=== PATIENT | male | born 1965 | race Caucasian/White ===

== ENCOUNTER 2016-04-27 23:55 | Emergency (ER) | payer MEDICAID, MEDICARE, OTHER ==
[2016-04-27 23:55] VITALS: BMI 25.1
--- NOTE | 2016-04-28 01:41 | C.PDOC ---
History Of Present Illness pt with cough, congestion over the last 3 days. Pt is a m-w-sat HD. 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 not actively bleeding. Speaking in complete sentences Time Seen by Provider: 04/28/16 01:41 Chief Complaint (Nursing): Cough, Cold, Congestion History Per: Patient History/Exam Limitations: no limitations Onset/Duration Of Symptoms: Days Current Symptoms Are (Timing): Still Present Location Of Pain: Other (nose) Sick Contacts (Context): None Associated Symptoms: Cough Ear Symptoms: Bilateral: None Severity: Moderate Pain Scale Rating Of: 4 Recent travel outside of the [place]: No Additional History Per: Patient Past Medical History Reviewed: Historical Data, Nursing Documentation, Vital Signs Vital Signs: Last Vital Signs Temp 98.4 F 04/28/16 00:44 Pulse 88 04/28/16 00:44 Resp 16 04/28/16 00:44 BP 135/82 04/28/16 00:44 Pulse Ox 98 04/28/16 03:34 - Medical History PMH: HTN, End Stage Renal Disease (DIALYSIS 3 X WEEK), Chronic Kidney Disease - [facility] Procedures EXCISION OF SIGMOID COLON, ENDO (02/19/15) HEMODIALYSIS (06/22/12) PERFORMANCE OF URINARY FILTRATION, MULTIPLE (02/19/15) Family History: States: No Known Family Hx - Social History Hx Tobacco Use: No Hx Alcohol Use: No Hx Substance Use: No - Immunization History Hx Tetanus Toxoid Vaccination: Yes Hx Influenza Vaccination: Yes Hx Pneumococcal Vaccination: Yes Review Of Systems Constitutional: Negative for: Fever, Chills ENT: Positive for: Nose Congestion (r nare epistaxis, not actively bleeding). Negative for: Ear Pain Cardiovascular: Negative for: Chest Pain Respiratory: Positive for: Cough. Negative for: Shortness of Breath Gastrointestinal: Negative for: Nausea, Vomiting Musculoskeletal: Negative for: Back Pain Skin: Negative for: Rash, Lesions, Jaundice, Bruising Neurological: Negative for: Weakness Psych: Negative for: Anxiety Physical Exam - Physical Exam Appears: Non-toxic, No Acute Distress Skin: Warm, Dry Ear(s): Bilateral: Normal Nose: Epistaxis (not actively bleeding ;left nare), No Septal Hematoma, Other Chest: Symmetrical Cardiovascular: Rhythm Regular Respiratory: No Rales, Rhonchi (few) Gastrointestinal/Abdominal: Soft, No Tenderness, No Distention Back: Normal Inspection Extremity: Other (lefet dilalysis shunt with good thrill and bruit) Extremity: Bilateral: Atraumatic Neurological/Psych: Oriented x3, Normal Speech, Normal Cognition Gait: Steady ED Course And Treatment - Laboratory Results Result Diagrams: 04/28/16 03:15 03 02:20 ECG: Interpreted By Me, Viewed By Me ECG Rhythm: Sinus Rhythm (71), Nonspecific Changes (lad, ) O2 Sat by Pulse Oximetry: 98 Pulse Ox Interpretation: Normal - Radiology CXR: Interpreted by Me, Viewed By Me CXR Interpretation: Yes: Other (? rll infiltrate). No: Fracture, Pnemothorax Progress Note: blood work, nebs, cxr Disposition Counseled Patient/Family Regarding: Studies Performed, Diagnosis, Need For Followup, Rx Given - Disposition Disposition: HOME/ ROUTINE Disposition Time: 01:41 Condition: FAIR Additional Instructions: Por favor, siga con isaac kirstin. Regresar si los sntomas se repiten Prescriptions: Albuterol HFA [Ventolin HFA 90 mcg/actuation (8 g)] 2 puff IH [id number] #1 puff Promethazine/Codeine [Codeine/Promethazine 10 MG/5 Ml-6.25 MG/5 Ml] 5 ml PO Q4H #150 udc Azithromycin [Zithromax Tri-Viktor] 500 mg PO DAILY #3 tablet Instructions: Upper Respiratory Infection (ED), Nosebleed (ED) Print Language: DIVEHI - Clinical Impression Clinical Impression: Bronchitis, Epistaxis
[2016-04-28] MEDS ORDERED: Promethazine/Cod 6.25mg-10mg/5ml Syr UD PO STA (01:46)
[2016-04-28] MEDS ORDERED: Promethazine/Cod 6.25mg-10mg/5ml Syr UD ONE (02:22)
[2016-04-28 02:34] LABS: VENOUS BLOOD GAS BASE EXCESS 12.4 mmol/L (0.0-2.0); VENOUS BLOOD GAS PCO2 48 mmHg (40-60)
[2016-04-28 02:35] LABS: ALB/GLOB RATIO 0.8 (1.0-2.1); TOTAL PROTEIN 7.8 g/dL (6.3-8.3)
[2016-04-28 02:36] LABS: CALCIUM 9.4 mg/dl (8.6-10.4); POTASSIUM 5.2 mmol/L (3.6-5.2)
[2016-04-28 03:18] LABS: BASO # 0.1 K/uL (0.0-0.2); BASO % 1.2 % (0.0-2.0); EOS # 0.1 K/uL (0.0-0.7); EOS % 1.4 % (0.0-4.0); HEMATOCRIT 34.9 % (35.0-51.0); LYMPH # 0.6 K/uL (1.0-4.3); LYMPH % 13.5 % (20.0-40.0); MEAN CORPUSCULAR HEMOGLOBIN 31.5 pg (27.0-31.0); MEAN CORPUSCULAR HGB CONC 33.2 g/dL (33.0-37.0); MEAN PLATELET VOLUME 8.9 fL (7.2-11.7); MONO # 0.6 K/uL (0.0-0.8); MONO % 15.1 % (0.0-10.0); NRBC % 0.1 % (0.0-2.0); RED CELL DISTRIBUTION WIDTH 14.2 % (11.5-14.5); WHITE BLOOD COUNT 4.3 K/uL (4.8-10.8)
[2016-04-28] MEDS ORDERED: cefTRIAXone IV 1 gm in Dextros 50 ML IVPB ONE ×2 (03:31→03:39)
[2016-04-28 03:58] VITALS: BP 141/84; PULSE 63; RESP 18; TEMP 98.9; O2SAT 95
--- NOTE | 2016-04-28 11:11 | RAD ---
PROCEDURE: CHEST RADIOGRAPH, 1 VIEW HISTORY: SOB COMPARISON: Comparison chest 06/22/2012 FINDINGS: LUNGS: Vague bilateral micronodular interstitial densities are present mid to lower lung harmon ; findings could represent inhaled interstitial pneumonia. Clinical correlation recommended. PLEURA: No pneumothorax or pleural fluid seen. CARDIOVASCULAR: Heart appears borderline enlarged with slight left ventricular configuration. OSSEOUS STRUCTURES: No significant abnormalities. VISUALIZED UPPER ABDOMEN: Normal. OTHER FINDINGS: Incidental note made of tiny metallic vascular clips within the medial soft tissues left upper extremity. IMPRESSION: Bilateral micronodular appearing interstitial infiltrates opacities mid to lower lung harmon could represent interstitial pneumonia
--- NOTE | 2016-04-29 22:19 | CARD ---
APPROVED REPORT EKG Measurement Heart [id number] VT [id number] <Conclusion> Normal sinus rhythm Left axis deviation Possible Lateral infarct, age undetermined Abnormal ECG
== END 2016-04-28 04:00 | disposition home or self-care (01) ==
LOC: C.ER 23:55
DX: J40 Bronchitis, not specified as acute or chronic (principal); R04.0 Epistaxis

== ENCOUNTER 2016-09-08 15:43 | Emergency (ER) | payer OTHER ==
[2016-09-08 15:43] VITALS: BMI 25.1
[2016-09-08 15:54] VITALS: RESP 20; TEMP 98.2; O2SAT 100
[2016-09-08] MEDS ORDERED: Enoxaparin 40 mg Syringe SC STA (17:24)
--- NOTE | 2016-09-08 17:31 | C.PDOC ---
History Of Present Illness 51-YEAR-OLD MALE, PRESENTS TO THE EMERGENCY DEPARTMENT WITH COMPLAINTS OF LEFT LEG SWELLING X 3 DAYS. PATIENT IS S/P L KNEECAP REPAIR 3 DAYS AGO INITIALLY W SWELLING NEAR SURGERY SITE NOW RESOLVED. NOW WITH SWELLING TO LEFT LEG WITH BRUISING IN LEG AND ANKLE. NO ANKLE SWELL. NO CP, SOB, TRAUMA VIA TRANS RUSTY GÓMEZ EXAM NAD EXT LLE HEALING POST OP SCAR L KNEE. GEN TEND EDEMA NONPITTING LLE; NO FOCAL CORD, TEND SKIN LLE +PETECHIA ANT; +POOLING HEMATOMA MED MALL. NO ERYTHEMA MDM ADVISED SWELLING MOST LIKELY DUE TO GRAVITY POOLING FROM POST OP HEMATOMA. POSSIBILITY OF DVT. ADVISED WILL GIVE LOVENOX BUT MAY MAKE BLEEDING WORSE. VOICES UNDERSTANDING OF RISKS BENEFITS. Time Seen by Provider: 09/08/16 17:01 Chief Complaint (Nursing): Lower Extremity Problem/Injury History Per: Patient, Sheriffs (RUSTY GÓMEZ) History/Exam Limitations: no limitations Current Symptoms Are (Timing): Still Present Severity: Moderate Past Medical History Reviewed: Historical Data, Nursing Documentation, Vital Signs Vital Signs: Last Vital Signs Temp 98.2 F 09/08/16 15:51 Pulse 67 09/08/16 15:51 Resp 20 09/08/16 15:51 BP 148/81 09/08/16 15:51 Pulse Ox 100 09/08/16 17:36 - Medical History PMH: HTN, End Stage Renal Disease (DIALYSIS 3 X WEEK), Chronic Kidney Disease - [facility] Procedures EXCISION OF SIGMOID COLON, ENDO (02/19/15) HEMODIALYSIS (06/22/12) PERFORMANCE OF URINARY FILTRATION, MULTIPLE (02/19/15) Family History: States: No Known Family Hx - Social History Hx Tobacco Use: No Hx Alcohol Use: No Hx Substance Use: No - Immunization History Hx Tetanus Toxoid Vaccination: Yes Hx Influenza Vaccination: Yes Hx Pneumococcal Vaccination: Yes Review Of Systems Except As Marked, All Systems Reviewed And Found Negative. Constitutional: Negative for: Fever Cardiovascular: Negative for: Chest Pain Respiratory: Negative for: Shortness of Breath Gastrointestinal: Negative for: Nausea, Vomiting Musculoskeletal: Positive for: Leg Pain (SWELLING) Physical Exam - Physical Exam Appears: Non-toxic, No Acute Distress Skin: Warm, Dry, Other ( LLE +PETECHIA ANT; +POOLING HEMATOMA MED MALL. NO ERYTHEMA) Head: Atraumatic, Normacephalic Eye(s): bilateral: Normal Inspection, PERRL, EOMI Nose: Normal Oral Mucosa: Moist Lips: Normal Appearing Neck: Normal ROM Cardiovascular: Rhythm Regular, No Murmur Respiratory: Normal Breath Sounds, No Accessory Muscle Use Extremity: Other ( LLE HEALING POST OP SCAR L KNEE. GEN TEND EDEMA NONPITTING LLE; NO FOCAL CORD, TEND) Neurological/Psych: Oriented x3, Normal Speech ED Course And Treatment O2 Sat by Pulse Oximetry: 100 Medical Decision Making Medical Decision Making: ADVISED SWELLING MOST LIKELY DUE TO GRAVITY POOLING FROM POST OP HEMATOMA. POSSIBILITY OF DVT. ADVISED WILL GIVE LOVENOX BUT MAY MAKE BLEEDING WORSE. VOICES UNDERSTANDING OF RISKS BENEFITS. Disposition Counseled Patient/Family Regarding: Diagnosis, Need For Followup - Disposition Referrals: [facility] EMERGENCY DEPARTMENT [Provider Group] Disposition: HOME/ ROUTINE Disposition Time: 17:34 Condition: IMPROVED Additional Instructions: DEVUELVA MAANA ENTRE 12-6 PM PARA EL ESTUDIO DE DOPPLER. [place]. TYLENOL JOHN SE DIRIGE PARA EL DOLOR. Forms: [facility] (Finnish), General Discharge Instructions - Clinical Impression Clinical Impression: Leg swelling - Scribe Statement The provider has reviewed the documentation as recorded by the Scribe (Carter Grossman) All medical record entries made by the Scribe were at my direction and personally dictated by me. I have reviewed the chart and agree that the record accurately reflects my personal performance of the history, physical exam, medical decision making, and the department course for this patient. I have also personally directed, reviewed, and agree with the discharge instructions and disposition.
[2016-09-08] MEDS ORDERED: Enoxaparin 80 mg Syringe ONE (18:52)
[2016-09-08 18:55] VITALS: BP 172/94; PULSE 60
== END 2016-09-08 19:17 | disposition home or self-care (01) ==
LOC: C.ER 15:43
DX: M79.89 Other specified soft tissue disorders (principal)
CPT/HCPCS: 96372; 99283; J1650

== ENCOUNTER 2016-09-09 10:03 | Emergency (ER) | payer OTHER ==
[2016-09-09 10:03] VITALS: BMI 25.1
[2016-09-09 10:13] VITALS: RESP 18
[2016-09-09 11:08] LABS: BASO % 0.6 % (0.0-2.0); EOS # 0.2 K/uL (0.0-0.7); EOS % 3.2 % (0.0-4.0); HEMATOCRIT 36.6 % (35.0-51.0); LYMPH # 1.2 K/uL (1.0-4.3); LYMPH % 22.3 % (20.0-40.0); MEAN CELL VOLUME 95.5 fL (80.0-94.0); MEAN CORPUSCULAR HEMOGLOBIN 31.6 pg (27.0-31.0); MEAN CORPUSCULAR HGB CONC 33.1 g/dL (33.0-37.0); MEAN PLATELET VOLUME 9.7 fL (7.2-11.7); MONO # 0.6 K/uL (0.0-0.8); MONO % 11.2 % (0.0-10.0); RED CELL DISTRIBUTION WIDTH 15.1 % (11.5-14.5); WHITE BLOOD COUNT 5.3 K/uL (4.8-10.8)
[2016-09-09 11:16] LABS: POTASSIUM 4.6 mmol/L (3.6-5.2)
[2016-09-09 11:18] LABS: BILIRUBIN,TOTAL 0.9 mg/dL (0.2-1.3)
[2016-09-09 11:19] LABS: CALCIUM 9.2 mg/dl (8.6-10.4); TOTAL PROTEIN 7.7 g/dL (6.3-8.3)
--- NOTE | 2016-09-09 12:23 | C.PDOC ---
History Of Present Illness 51-year-old male, PMHx includes ESRD (on HD), Hypertension, presents to the emergency department with complaints of left lower leg pain, swelling, bruising for the past 1 week. Patient was seen in ER yesterday, DVT suspected and patient given SC Lovenox; =instructed to return for venous doppler today. States he has a Hx of knee surgery eight years ag, but denies recent surgeries. He also denies falls/injuries, chest pain, SOB, fever. Patient states he had a renal transplant >10 years ago, and developed a "blood clot," but does not know where. Time Seen by Provider: 09/09/16 10:16 Chief Complaint (Nursing): Abnormal Skin Integrity History Per: Patient History/Exam Limitations: no limitations Onset/Duration Of Symptoms: Days Current Symptoms Are (Timing): Still Present Severity: Moderate Reports Recently: Seen In ED Past Medical History Reviewed: Historical Data, Nursing Documentation, Vital Signs Vital Signs: Last Vital Signs Temp 98.3 F 09/09/16 13:40 Pulse 69 09/09/16 13:40 Resp 18 09/09/16 13:40 BP 216/115 H 09/09/16 13:40 Pulse Ox 100 09/09/16 13:40 - Medical History PMH: HTN, End Stage Renal Disease (DIALYSIS 3 X WEEK), Chronic Kidney Disease - [facility] Procedures EXCISION OF SIGMOID COLON, ENDO (02/19/15) HEMODIALYSIS (06/22/12) PERFORMANCE OF URINARY FILTRATION, MULTIPLE (02/19/15) Family History: States: No Known Family Hx - Social History Hx Tobacco Use: No Hx Alcohol Use: No Hx Substance Use: No - Immunization History Hx Tetanus Toxoid Vaccination: Yes Hx Influenza Vaccination: Yes Hx Pneumococcal Vaccination: Yes Review Of Systems Except As Marked, All Systems Reviewed And Found Negative. Constitutional: Negative for: Fever, Chills Cardiovascular: Negative for: Chest Pain, Palpitations Respiratory: Negative for: Shortness of Breath Gastrointestinal: Negative for: Nausea, Vomiting Musculoskeletal: Positive for: Leg Pain Skin: Negative for: Rash Neurological: Negative for: Weakness, Numbness Physical Exam - Physical Exam Appears: Well, Non-toxic, In Acute Distress (in mild pain ) Skin: Warm, Dry, No Rash Head: Atraumatic, Normacephalic Eye(s): bilateral: Normal Inspection, PERRL, EOMI Oral Mucosa: Moist Cardiovascular: Rhythm Regular, Friction Rub, Murmur Respiratory: Normal Breath Sounds, No Accessory Muscle Use, No Rales, No Rhonchi , No Wheezing Gastrointestinal/Abdominal: Normal Exam, Bowel Sounds, Soft, No Tenderness Extremity: Capillary Refill (< 2 secs all digits ), Swelling, Other (AV fistula in left arm w/ palpable thrill. Left lower leg with mild swelling, tenderness & mild erythema. (+)scattered petichiae and echymosis at medial malleolus. ) Extremity: Bilateral: Normal ROM Pulses: Left Dorsalis Pedis: Normal, Right Dorsalis Pedis: Normal Neurological/Psych: Oriented x3, Normal Sensation Gait: Steady ED Course And Treatment - Laboratory Results Result Diagrams: 09/09/16 11:03 09/09/16 11:03 O2 Sat by Pulse Oximetry: 99 (RA) Pulse Ox Interpretation: Normal - CT Scan/US VENOUS DOPPLER Other Rad Studies (CT/US): Read By Radiologist Progress Note: Bloodwork, US doppler, Xray of left knee/ankle ordered and reviewed. PO tylenol given for pain. Venous doppler (-) for DVT, but shows small hematoma in lower leg. Crutches and instruction given. Reevaluation Time: 13:30 Reassessment Condition: Improved - Physician Consult Information Physician Contacted: Pasha Keene Outcome Of Conversation: Discussed patient with Dr. Keene, he is aware of small leg hematoma with normal platelets, coags - states will hold heparin x 1 week during dialysis. Disposition Counseled Patient/Family Regarding: Studies Performed, Diagnosis, Need For Followup, Rx Given - Disposition Referrals: Pasha Keene MD [Staff Provider] - [facility] [Outside] Drew Kerr MD [Staff Provider] - [facility] [Outside] Disposition: HOME/ ROUTINE Disposition Time: 13:30 Condition: STABLE Additional Instructions: SEGUIMIENTO CON ORTOPEDIA DENTRO DE 1 SEMANA NO HEPAR[place] CON DIALSIS X 1 SEMANA USE EL MEDICAMENTO DEL DOLOR JOHN SEA NECESARIO VUELVA A LA HABITACIN DE EMERGENCIA SI LA MAX SE ENCUENTRA MS DOLOROSA, EDITH , GOLPEADA, ETC Prescriptions: Hydrocodone/Acetaminophen [Hydrocodon-Acetaminophen 5-325] 1 each PO Q6 PRN #12 tablet PRN Reason: Pain, Moderate (4-7) Instructions: Hematoma (ED) Forms: [facility] (Congolese) Print Language: CITIZEN OF [place] - POA Present On Arrival: None - Clinical Impression Clinical Impression: Leg hematoma - Scribe Statement The provider has reviewed the documentation as recorded by the Scribe (Carter Grossman) All medical record entries made by the Scribe were at my direction and personally dictated by me. I have reviewed the chart and agree that the record accurately reflects my personal performance of the history, physical exam, medical decision making, and the department course for this patient. I have also personally directed, reviewed, and agree with the discharge instructions and disposition.
[2016-09-09 13:41] VITALS: BP 216/115; PULSE 69; TEMP 98.3
--- NOTE | 2016-09-09 13:44 | RAD ---
PROCEDURE: Left Ankle Radiographs. HISTORY: LEFT ANKLE PAIN, SWELLING COMPARISON: None FINDINGS: BONES: There is no acute displaced fracture or bone destruction. Bone alignment is normal. There is a large plantar calcaneal spur and prominent dorsal calcaneal enthesophyte. JOINTS: Normal. No osteoarthritis. Ankle mortise maintained. Talar dome intact SOFT TISSUES: Normal. OTHER FINDINGS: Atherosclerotic vascular calcifications are present. IMPRESSION: No acute fracture or dislocation.
--- NOTE | 2016-09-09 13:46 | RAD ---
PROCEDURE: Left Knee Radiographs. HISTORY: Pain. COMPARISON: 12/21/2011 FINDINGS: BONES: Normal. No fracture. JOINTS: There is mild tricompartmental degenerative osteoarthrosis with reduced joint spaces and marginal osteophytes, worse in the medial compartment. There are prominent superior and inferior patellar enthesophytes. JOINT EFFUSION: There is a small suprapatellar joint effusion. OTHER FINDINGS: Atherosclerotic vascular calcifications are present. IMPRESSION: Mild tricompartmental degenerative osteoarthrosis, worse in the medial compartment. Small suprapatellar joint effusion.
--- NOTE | 2016-09-10 14:43 | VASCLAB ---
PROCEDURE: Left Lower Extremity Venous Duplex Exam. HISTORY: left leg pain, swelling, r/o DVT PRIORS: None. TECHNIQUE: Left common femoral, femoral, popliteal and posterior tibial, peroneal and great saphenous veins were evaluated. Flow was assessed with color Doppler, compressibility, assessment of phasic flow and augmentation response. Report prepared by Carrillo Garnica RVT FINDINGS: LEFT: 1. Common Femoral Vein: 1.1. Compressibility - Fully compressible: Thrombus - None : Flow - Phasic: Augmentation -Normal: Reflux - . 2. Femoral Vein: 2.1. Compressibility - Fully compressible: Thrombus - None: Flow - Phasic: Augmentation -Normal: Reflux - . 3. Popliteal Vein: 3.1. Compressibility - Fully compressible: Thrombus - None: Flow - Phasic: Augmentation -Normal: Reflux - . 4. Posterior Tibial Vein: 4.1. Compressibility - Fully compressible: Thrombus - None: Flow - : Augmentation -: Reflux - . 5. Peroneal Vein: 5.1. Compressibility - Fully compressible: Thrombus - None: Flow - : Augmentation -: Reflux - . 6. Great Saphenous Vein: 6.1. Compressibility - Fully compressible: Thrombus - None: Flow - : Augmentation - : Reflux - . OTHER FINDINGS: There was hyperechoic structure like solid mass noted in the proximal left calf area, which measured approximately 2.7x1.0 cm, possible a hematoma. IMPRESSION: No evidence of deep or superficial vein thrombosis of the left lower extremity with excellent venous flow. Normal venous flow noted in the right common femoral vein.
[2016-09-12 11:38] VITALS: O2SAT 99
== END 2016-09-09 13:45 | disposition home or self-care (01) ==
LOC: C.ER 10:03
DX: S80.12XA Contusion of left lower leg, initial encounter (principal); X58.XXXA Exposure to other specified factors, initial encounter; N18.6 End stage renal disease; Z99.2 Dependence on renal dialysis

== ENCOUNTER 2017-03-31 08:54 | Inpatient (IN) | payer MEDICARE, OTHER ==
[2017-03-31 08:55] VITALS: BMI 25.1
[2017-03-31 11:53] LABS: BASO % 0.6 % (0.0-2.0); EOS # 0.3 K/uL (0.0-0.7); EOS % 3.1 % (0.0-4.0); LYMPH # 1.1 K/uL (1.0-4.3); MEAN CELL VOLUME 95.2 fL (80.0-94.0); MEAN CORPUSCULAR HEMOGLOBIN 32.6 pg (27.0-31.0); MEAN CORPUSCULAR HGB CONC 34.3 g/dL (33.0-37.0); MEAN PLATELET VOLUME 10.1 fL (7.2-11.7); MONO % 11.1 % (0.0-10.0); NEUT # 6.2 K/uL (1.8-7.0); NEUT % 72.2 % (50.0-75.0); RBC 4.5 Mil/uL (4.40-5.90); RED CELL DISTRIBUTION WIDTH 14.2 % (11.5-14.5)
[2017-03-31 11:55] LABS: HEMOGLOBIN 14.7 g/dL (12.0-18.0); WHITE BLOOD COUNT 8.6 K/uL (4.8-10.8)
[2017-03-31 12:03] LABS: INR 1.1; PROTHROMBIN TIME 12.1 SECONDS (9.7-12.2)
--- NOTE | 2017-03-31 12:05 | C.PDOC ---
History Of Present Illness 52yo male with history of end stage renal failure, on dialysis with last session 2 days ago, presents to ED for evaluation stating that his port does not work. Patient has an access port on his left arm and was told during his last dialysis session that it does not work. He denies any fever, chills, chest pain, shortness of breath or abdominal pain. He has no other medical complaints. Time Seen by Provider: 03/31/17 09:49 Chief Complaint (Nursing): Medical Clearance History Per: Patient History/Exam Limitations: no limitations Onset/Duration Of Symptoms: Days (2) Current Symptoms Are (Timing): Still Present Past Medical History Reviewed: Historical Data, Nursing Documentation, Vital Signs Vital Signs: Last Vital Signs Temp 98.4 F 03/31/17 09:02 Pulse 73 03/31/17 17:10 Resp 18 03/31/17 17:10 BP 142/83 03/31/17 17:10 Pulse Ox 98 03/31/17 17:10 - Medical History PMH: HTN, End Stage Renal Disease (DIALYSIS 3 X WEEK, MWF), Chronic Kidney Disease - [facility] Procedures EXCISION OF SIGMOID COLON, ENDO (02/19/15) HEMODIALYSIS (06/22/12) PERFORMANCE OF URINARY FILTRATION, MULTIPLE (02/19/15) Family History: States: No Known Family Hx - Social History Hx Tobacco Use: No Hx Alcohol Use: No Hx Substance Use: No - Immunization History Hx Tetanus Toxoid Vaccination: Yes Hx Influenza Vaccination: Yes Hx Pneumococcal Vaccination: Yes Review Of Systems Except As Marked, All Systems Reviewed And Found Negative. Constitutional: Positive for: Other (patient informed his dialysis port is not working). Negative for: Fever, Chills Cardiovascular: Negative for: Chest Pain Respiratory: Negative for: Shortness of Breath Gastrointestinal: Negative for: Abdominal Pain Physical Exam - Physical Exam Appears: Non-toxic, No Acute Distress Skin: Warm, Dry Head: Normacephalic Eye(s): bilateral: Normal Inspection Neck: Normal ROM, Supple Chest: Symmetrical Cardiovascular: Rhythm Regular Respiratory: Normal Breath Sounds Gastrointestinal/Abdominal: Normal Exam, Soft, No Tenderness Back: Normal Inspection Extremity: Other (access port noted to left arm, no active bleeding. ) Neurological/Psych: Oriented x3, Normal Speech ED Course And Treatment - Laboratory Results Result Diagrams: 03/31/17 11:40 03/31/17 11:40 O2 Sat by Pulse Oximetry: 99 (RA) Pulse Ox Interpretation: Normal Progress Note: Casew as d/w who requested patient to be admitted to 's service and vascular surgery consult to be called Dr.T. Arroyo. Spoeke with who accepted patient to his service. Medical Decision Making Medical Decision Making: Plan: -- CMP -- CBC -- PT/PTT Disposition - Disposition Disposition: HOSPITALIZED Disposition Time: 14:37 Condition: STABLE - Clinical Impression Clinical Impression: Dialysis AV fistula malfunction - PA / TOWEL SORTER / Resident Statement MD/DO has reviewed & agrees with the documentation as recorded. - Scribe Statement The provider has reviewed the documentation as recorded by the Scribe (Diana Joy) Provider Scribe Attestation: All medical record entries made by the Scribe were at my direction and personally dictated by me. I have reviewed the chart and agree that the record accurately reflects my personal performance of the history, physical exam, medical decision making, and the department course for this patient. I have also personally directed, reviewed, and agree with the discharge instructions and disposition. Decision To Admit - Pt Status Changed To: Hospital Disposition Of: Inpatient - Admit Certification Admit to Inpatient:: After my assessment, the patient will require hospitalization for at least two midnights. This is because of the severity of symptoms shown, intensity of services needed, and/or the medical risk in this patient being treated as an outpatient. - InPatient: Physician Admission Certification: I certify that this patient requires 2 or more midnights of care for the following reason:: pt will need surgical procedure - . Bed Request Type: Regular Admitting Physician: Georgia Rodrigues Patient Diagnosis: Dialysis AV fistula malfunction
[2017-03-31 12:28] LABS: ALBUMIN 4.1 g/dL (3.5-5.0); CALCIUM 11.3 mg/dl (8.6-10.4)
--- NOTE | 2017-03-31 19:00 | CP.PCM.CON ---
<Taina Rojas - Last Filed: 03/31/17 19:37> History of Present Illness - History of Present Illness History of Present Illness: Vascular Surgery Dr. Medeiros 52 y/o M w/ PMHx of ESRD on HD MWF presents to the ED c/o malfunctioning AVF. At dialysis on 03/23/17 and again on Saturday03/29/17, pt was told his access was no longer working appropriately and he should come to the ED for evaluation. Pt reports dark black blood w/drawn from proximal arm at dialysis. Distally, at the antecubital fosa, dialysis progresses normally. Pt reports pain in the hand and posterior arm which started concurrently w/ the AVF malfunction. Pt denies numbness or hand weakness. Pt admits to chills. Pt denies CP, SOB, palpitations , fever, N/V. PMHx: ESRD, HTN, pulmonary edema, pericardial effusion Meds: reviewed in chart NKDA PSHx: renal transplant, knee surgery, R lung cystectomy, dialysis access, pericardial window, colonoscopy SHx: denies tobacco use, social EtOH use, denies drug use FHx: noncontributory Review of Systems - Review of Systems All systems: reviewed and no additional remarkable complaints except (see HPI) Past Patient History - Infectious Disease Hx of Infectious Diseases: None - Past Medical History & Family History Past Medical History?: Yes - Past Social History Smoking Status: Never Smoked - CARDIAC Hx Hypertension: Yes - PULMONARY Hx Respiratory Disorders: Yes Hx Pulmonary Edema: Yes - NEUROLOGICAL Hx Neurological Disorder: No - HEENT Hx HEENT Problems: No - RENAL Hx Chronic Kidney Disease: Yes - ENDOCRINE/METABOLIC Hx Endocrine Disorders: No - HEMATOLOGICAL/ONCOLOGICAL Hx Blood Disorders: No - INTEGUMENTARY Hx Dermatological Problems: No - MUSCULOSKELETAL/RHEUMATOLOGICAL Hx Musculoskeletal Disorders: No Hx Falls: No - GASTROINTESTINAL Hx Gastrointestinal Disorders: No - GENITOURINARY/GYNECOLOGICAL Hx Genitourinary Disorders: No - PSYCHIATRIC Hx Substance Use: No - SURGICAL HISTORY Hx Surgeries: Yes Hx Vascular Access Device: Yes Other/Comment: lung surgery. heart surgery- too much fluid around heart - ANESTHESIA Hx Anesthesia: Yes Hx Anesthesia Reactions: No Hx Malignant Hyperthermia: No Meds Allergies/Adverse Reactions: Allergies Allergy/AdvReac Type Severity Reaction Status Date / Time No Known Allergies Allergy Verified 03/31/17 09:01 Physical Exam - Constitutional Appears: Non-toxic, No Acute Distress - Head Exam Head Exam: NORMAL INSPECTION - Eye Exam Eye Exam: Normal appearance - ENT Exam ENT Exam: Mucous Membranes Moist - Respiratory Exam Respiratory Exam: NORMAL BREATHING PATTERN. absent: Accessory Muscle Use, Respiratory Distress - Cardiovascular Exam Cardiovascular Exam: REGULAR RHYTHM. 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-aneurysms present proximal to AVF w/ palpable pulses thrill decreases w/ compression of pseudo-aneurysms R radial pulse palpable - Neurological Exam Neurological exam: Alert, Oriented x3 - Psychiatric Exam Psychiatric exam: Normal Affect, Normal Mood - Skin Skin Exam: Dry, Intact, Normal Color, Warm Results - Vital Signs Recent Vital Signs: Last Vital Signs Temp 98.4 F 03/31/17 09:02 Pulse 73 03/31/17 17:10 Resp 18 03/31/17 17:10 BP 142/83 03/31/17 17:10 Pulse Ox 99 03/31/17 17:16 - Labs Result Diagrams: 03/31/17 11:40 03/31/17 11:40 Labs: Laboratory Results - last 24 hr 03/31/17 03/31/17 03/31/17 11:40 11:40 11:40 WBC 8.6 D RBC 4.50 Hgb 14.7 D Hct 42.8 MCV 95.2 H MCH 32.6 H MCHC 34.3 RDW 14.2 Plt Count 157 MPV 10.1 Neut % (Auto) 72.2 Lymph % (Auto) 13.0 L Kershaw % (Auto) 11.1 H Eos % (Auto) 3.1 Baso % (Auto) 0.6 Neut # (Auto) 6.2 Lymph # (Auto) 1.1 Kershaw # (Auto) 1.0 H Eos # (Auto) 0.3 Baso # (Auto) 0.0 PT 12.1 INR 1.1 APTT 37 H Sodium 135 Potassium 4.9 Chloride 87 L Carbon Dioxide 31 H Anion Gap 22 H BUN 71 H Creatinine 10.5 H* Est GFR ( Amer) 6 Est GFR (Non-Af Amer) 5 Random Glucose 78 Calcium 11.3 H Total Bilirubin 0.9 AST 19 ALT 21 D Alkaline Phosphatase 195 H Total Protein 7.9 Albumin 4.1 Globulin 3.9 Albumin/Globulin Ratio 1.0 Assessment & Plan - Assessment and Plan (Free Text) Assessment: 52 y/o M w/ ESRD on HD MWF now w/ L AVF and 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 Waldemar Rojas DO PGY2 <Dany Medeiros - Last Filed: 04/03/17 18:20> Meds - Medications Medications: Current Medications Cinacalcet (Sensipar) 120 mg PO QPM [facility] Last Admin: 04/03/17 17:56 Dose: 120 mg Clonidine HCl (Catapres) 0.2 mg PO BID [facility] Last Admin: 04/03/17 17:56 Dose: Not Given Famotidine (Pepcid) 20 mg PO DAILY [facility] Last Admin: 04/03/17 18:01 Dose: 20 mg Heparin Sodium (Porcine) (Heparin) 2,000 units IVP [facility] Stop: 04/08/17 09:01 Last Admin: 04/03/17 09:16 Dose: 2,000 units Ondansetron HCl (Zofran Inj) 4 mg IVP Q6H PRN PRN Reason: Nausea/Vomiting Oxycodone/Acetaminophen (Percocet 5/325 Mg Tab) 1 tab PO Q6H PRN PRN Reason: pain Stop: 04/05/17 17:24 Last Admin: 04/02/17 17:58 Dose: 1 tab Sevelamer Carbonate (Renvela) 800 mg PO TIDCC [facility] Last Admin: 04/03/17 17:56 Dose: 800 mg Vitamin B Complex/Vit C/Folic Acid (Nephro-Memo) 1 tab PO DAILY [facility] Last Admin: 04/03/17 09:54 Dose: Not Given Results - Vital Signs Recent Vital Signs: Last Vital Signs Temp 98.6 F 04/03/17 15:15 Pulse 79 04/03/17 15:15 Resp 20 04/03/17 15:15 BP 97/61 L 04/03/17 15:15 Pulse Ox 98 04/03/17 15:15 - Labs Result Diagrams: 03/31/17 11:40 03/31/17 11:40 Assessment & Plan - Assessment and Plan (Free Text) Assessment: Patient was seen and examined 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
[2017-04-01] MEDS ORDERED: LANTHANUM 1000 MG PO SCH (07:30)
--- NOTE | 2017-04-01 07:45 | HP ---
HISTORY OF PRESENT ILLNESS: This is a 52-year-old male with history of end-stage renal disease, on hemodialysis, last dialysis was 2 days prior to this admission. The patient was sent to emergency room for nonfunctioning left upper extremity AV shunt. The patient denies to have any trauma. No fever. No chills. No chest pain. No shortness of breath, and other review of systems negative. ALLERGIES: NO KNOWN ALLERGIES. MEDICATIONS: As per MAR. PAST MEDICAL HISTORY: End stage renal disease, on hemodialysis, hypertension. SOCIAL HISTORY: No history of smoking, EtOH, or substance abuse. FAMILY HISTORY: Noncontributory. PHYSICAL EXAMINATION: GENERAL: The patient is in bed, comfortable, not in any cardiopulmonary distress at the time of this examination. VITAL SIGNS: Blood pressure 142/83, temperature 98.4, respiratory rate 18, and pulse 73. HEENT: Pupils equal and reactive to light. Normal-appearing mucosa of the conjunctivae, oropharynx, and nasal membrane mucosa. NECK: Supple. No JVD. No carotid bruit. No lymph node. No thyromegaly. CHEST AND LUNGS: Bilateral symmetrical expansion. Good air exchange. No rales, no rhonchi. CARDIOVASCULAR SYSTEM: PMI not localized. S1, S2. No additional sounds. ABDOMEN: Normoactive bowel sounds. No tenderness. No organomegaly. No masses. EXTREMITIES: No cyanosis, no clubbing, no edema. ASSOCIATE MANAGER AFFILIATE MARKETING: Alert, awake, oriented x2. No neurological deficit could be appreciated. ASSESSMENT: 1. Nonfunctioning left arteriovenous shunt. 2. End-stage renal disease, on hemodialysis. 3. Hypertension. PLAN: Vascular surgery consult, nephrology consult. We will resume the patient's home medications. Georgia Rodrigues MD
--- NOTE | 2017-04-01 09:48 | CP.PCM.PN ---
Subjective - Date & Time of Evaluation Date of Evaluation: 04/01/17 Time of Evaluation: 06:50 - Subjective Subjective: Vascular Surgery- Dr. Medeiros Patient seen and examined at bedside this AM. no acute events overnight. Nursing notes reviewed. Pt has a palpbale thrill LUE fistula w/ multiple pseudoaneurysm. Denies F/C CP/SOB N/V/D Of note: patient is refusing temporary dialysis catheter placement Objective - Vital Signs/Intake and Output Vital Signs (last 24 hours): Temp Pulse Resp BP Pulse Ox 98.7 F 72 20 139/80 97 04/01/17 07:58 04/01/17 07:58 04/01/17 07:58 04/01/17 07:58 04/01/17 07:58 - Medications Medications: Current Medications Cinacalcet (Sensipar) 120 mg PO QPM [facility] Clonidine HCl (Catapres) 0.2 mg PO BID [facility] Last Admin: 03/31/17 21:18 Dose: 0.2 mg Famotidine (Pepcid) 40 mg PO DAILY [facility] Home Med (Lanthanum [Fosrenol]) 1,000 mg PO TIDAC [facility] Vitamin B Complex/Vit C/Folic Acid (Nephro-Memo) 1 tab PO DAILY [facility] - Labs Labs: 03/31/17 11:40 03/31/17 11:40 PT 12.1 SECONDS (9.7-12.2) 03/31/17 11:40 INR 1.1 03/31/17 11:40 APTT 37 SECONDS (21-34) H 03/31/17 11:40 - Constitutional Appears: Non-toxic, No Acute Distress - Eye Exam Eye Exam: EOMI. absent: Scleral icterus - ENT Exam ENT Exam: Mucous Membranes Moist - Respiratory Exam Respiratory Exam: NORMAL BREATHING PATTERN. absent: Accessory Muscle Use, Respiratory Distress - Cardiovascular Exam Cardiovascular Exam: +S1, +S2. absent: Bradycardia, Tachycardia - GI/Abdominal Exam GI & Abdominal Exam: Soft. absent: Firm, Guarding, Rigid, Tenderness - Extremities Exam Additional comments: palpable radial pulse LUE palpable thrill inferior aspect of fistula - Neurological Exam Neurological Exam: Alert, Awake Assessment and Plan - Assessment and Plan (Free Text) Assessment: 52M w/ malfunctioning LUE AV Fistula pt currently refusing temporary dialysis catheter placement Plan: final read pending for UE US will attempt dialysis today via fistula Plan for fistulogram tomorrow NPO @ [place] pain control anti-emetic PRN further recs per Dr. Medeiros surgical attending Gagan Thomas PGY1
[2017-04-01] MEDS: Multivitamin Vitamin B Complex (Nephro-Vite) Tab PO SCH (11:00)
--- NOTE | 2017-04-02 07:31 | PN ---
DATE: 04/01/2017 SUBJECTIVE: The patient is seen today, 04/01/2017. He is seen during hemodialysis. OBJECTIVE: VITAL SIGNS: Blood pressure 115/78, temperature 97.3, respiratory rate 18, and pulse 65. HEENT: Pupils equal, reactive to light. Normal-appearing mucosa of the conjunctivae, oropharynx and nasal membrane mucosa. NECK: Supple. No JVD. No carotid bruit. No lymph node. No thyromegaly. CHEST/LUNGS: Bilateral symmetrical expansion. Good air exchange. No rales, no rhonchi. CARDIOVASCULAR SYSTEM: PMI not localized. S1, S2. No additional sounds. ABDOMEN: Normoactive bowel sounds. No tenderness. No organomegaly. No masses. EXTREMITIES: No cyanosis, no clubbing, no edema. SHEET METAL PATTERN CUTTER: Alert, awake, oriented x2. No neurological deficit could be appreciated. ASSESSMENT: Malfunctioning arteriovenous shunt, end-stage renal disease, on hemodialysis, hypertension. PLAN: Follow Vascular Surgery. RECOMMENDATIONS: Continue current medications and management as per Nephrology. Georgia Rodrigues MD
[2017-04-02] MEDS: Multivitamin Vitamin B Complex (Nephro-Vite) Tab PO SCH (09:18)
[2017-04-02] MEDS ORDERED: Iodixanol 320 MG/ML 100 ML BOTTLE IV ONE (10:42)
[2017-04-02] MEDS ORDERED: Lidocaine 2% Inj (20ml) ONE (10:43)
[2017-04-02] MEDS: Oxycodone/Acetaminophen 5/325 mg Tab PO PRN (17:58)
--- NOTE | 2017-04-02 23:18 | PN ---
DATE: 04/02/2017. SUBJECTIVE: He was complaining of vomiting twice and upper back pain. The patient had workup done today by Vascular Surgery for the left upper arm fistula. PHYSICAL EXAMINATION: VITAL SIGNS: Blood pressure 122/79, temperature 98.4, respiratory rate 20 and pulse 60. HEENT: Pupils equal, reactive to light. Normal-appearing mucosa of the conjunctivae, oropharynx and nasal membrane mucosa. NECK: Supple. No JVD. No carotid bruit. No lymph node. No thyromegaly. CHEST AND LUNGS: Bilateral symmetrical expansion. Good air exchange. No rales, no rhonchi. CARDIOVASCULAR SYSTEM: PMI not localized. S1, S2. No additional sounds. ABDOMEN: Normoactive bowel sounds. No tenderness. No organomegaly. No masses. EXTREMITIES: No cyanosis, no clubbing, no edema. POLICE SHIFT COMMANDER: Alert, awake, oriented x2. No neurological deficit could be appreciated. ASSESSMENT: 1. Malfunctioning arteriovenous shunt of the left upper arm. 2. End-stage renal disease on hemodialysis. 3. Hypertension. PLAN: We will give Protonix as well as Reglan/Zofran and we will give Percocet for upper back pain. Followup Vascular business risk consultant recommendations, hemodialysis as per kitchen designer. Georgia Rodrigues MD
--- NOTE | 2017-04-03 09:42 | VASCLAB ---
PROCEDURE: Arterial-Venous shunt Evaluation. HISTORY: malfunctioning AVF; pseudo-aneurysm PRIORS: None. TECHNIQUE: Ultrasound evaluation of arterial-venous shunt with color doppler and velocity measurements. Report prepared by PRISCILLA Ozuna, RVT FINDINGS: Type of arterial-venous shunt: Vein Afferent Artery: Brachial Efferent Vein: Basilic 1. Afferent Artery: Velocity 173 cm/s Image Characteristics: 2. Inflow Anastamosis: Velocity 305 cm/s Image Characteristics: 3. Mid shunt flow: Velocity cm/s Image Characteristics: 4. Outflow Anastamosis: Velocity cm/s Image Characteristics: 5. Efferent Vein: Velocity cm/s Image Characteristics: OTHER FINDINGS: RUSTY Jane notified about the findings. IMPRESSION: LEFT BRACHIAL-BASILIC VEIN FISTULA Poorly attached acute thrombosis noted in the left basilic vein with multiple aneurysmal sites. The anastamosis velocity is 305cm/s, distal upper arm basilic vein velocity 69 cm/s, mid 86 cm/s, proximal 382 cm/s, and axillary vein 276 cm/s.
[2017-04-03] MEDS: Multivitamin Vitamin B Complex (Nephro-Vite) Tab PO SCH (09:54)
--- NOTE | 2017-04-03 13:49 | CP.PCM.PN ---
Subjective - Date & Time of Evaluation Date of Evaluation: 04/03/17 Time of Evaluation: 13:00 - Subjective Subjective: SEEN ON RENAL F/U PT AGREES ABOUT TUNNELLED CATH AND FISTULA REPAIR Objective - Vital Signs/Intake and Output Vital Signs (last 24 hours): Temp Pulse Resp BP Pulse Ox 97.7 F 64 17 102/67 99 04/03/17 12:05 04/03/17 12:05 04/03/17 12:05 04/03/17 12:05 04/03/17 12:05 Intake and Output: 04/03/17 04/03/17 06:59 18:59 Intake Total 400 120 Balance 400 120 - Medications Medications: Current Medications Cinacalcet (Sensipar) 120 mg PO QPM [facility] Last Admin: 04/02/17 18:00 Dose: 120 mg Clonidine HCl (Catapres) 0.2 mg PO BID [facility] Last Admin: 04/03/17 09:54 Dose: Not Given Famotidine (Pepcid) 20 mg PO DAILY [facility] Last Admin: 04/03/17 09:54 Dose: Not Given Heparin Sodium (Porcine) (Heparin) 2,000 units IVP MWF [facility] Stop: 04/08/17 09:01 Last Admin: 04/03/17 09:16 Dose: 2,000 units Ondansetron HCl (Zofran Inj) 4 mg IVP Q6H PRN PRN Reason: Nausea/Vomiting Oxycodone/Acetaminophen (Percocet 5/325 Mg Tab) 1 tab PO Q6H PRN PRN Reason: pain Stop: 04/05/17 17:24 Last Admin: 04/02/17 17:58 Dose: 1 tab Sevelamer Carbonate (Renvela) 800 mg PO TIDCC [facility] Last Admin: 04/03/17 12:46 Dose: 800 mg Vitamin B Complex/Vit C/Folic Acid (Nephro-Memo) 1 tab PO DAILY [facility] Last Admin: 04/03/17 09:54 Dose: Not Given - Labs Labs: 03/31/17 11:40 03/31/17 11:40 PT 12.1 SECONDS (9.7-12.2) 03/31/17 11:40 INR 1.1 03/31/17 11:40 APTT 37 SECONDS (21-34) H 03/31/17 11:40 Assessment and Plan - Assessment and Plan (Free Text) Assessment: C/ O CURRENT CARE
--- NOTE | 2017-04-03 14:53 | CP.PCM.PN ---
Subjective - Date & Time of Evaluation Date of Evaluation: 04/03/17 Time of Evaluation: 10:45 - Subjective Subjective: Vascular Surgery- Dr. Medeiros Patient seen and examined while receiving dialysis today. No new complaints. no acute events overnight. Patient denies F/C CP/SOB N/V/D Objective - Vital Signs/Intake and Output Vital Signs (last 24 hours): Temp Pulse Resp BP Pulse Ox 97.7 F 64 17 102/67 99 04/03/17 12:05 04/03/17 12:05 04/03/17 12:05 04/03/17 12:05 04/03/17 12:05 Intake and Output: 04/03/17 04/03/17 06:59 18:59 Intake Total 400 360 Balance 400 360 - Medications Medications: Current Medications Cinacalcet (Sensipar) 120 mg PO QPM [facility] Last Admin: 04/02/17 18:00 Dose: 120 mg Clonidine HCl (Catapres) 0.2 mg PO BID [facility] Last Admin: 04/03/17 09:54 Dose: Not Given Famotidine (Pepcid) 20 mg PO DAILY [facility] Last Admin: 04/03/17 09:54 Dose: Not Given Heparin Sodium (Porcine) (Heparin) 2,000 units IVP MWF [facility] Stop: 04/08/17 09:01 Last Admin: 04/03/17 09:16 Dose: 2,000 units Ondansetron HCl (Zofran Inj) 4 mg IVP Q6H PRN PRN Reason: Nausea/Vomiting Oxycodone/Acetaminophen (Percocet 5/325 Mg Tab) 1 tab PO Q6H PRN PRN Reason: pain Stop: 04/05/17 17:24 Last Admin: 04/02/17 17:58 Dose: 1 tab Sevelamer Carbonate (Renvela) 800 mg PO TIDCC [facility] Last Admin: 04/03/17 12:46 Dose: 800 mg Vitamin B Complex/Vit C/Folic Acid (Nephro-Memo) 1 tab PO DAILY [facility] Last Admin: 04/03/17 09:54 Dose: Not Given - Labs Labs: 03/31/17 11:40 03/31/17 11:40 PT 12.1 SECONDS (9.7-12.2) 03/31/17 11:40 INR 1.1 03/31/17 11:40 APTT 37 SECONDS (21-34) H 03/31/17 11:40 - Constitutional Appears: Non-toxic, No Acute Distress - Eye Exam Eye Exam: EOMI. absent: Scleral icterus - ENT Exam ENT Exam: Mucous Membranes Moist - Respiratory Exam Respiratory Exam: NORMAL BREATHING PATTERN. absent: Accessory Muscle Use, Respiratory Distress - Cardiovascular Exam Cardiovascular Exam: +S1, +S2. absent: Bradycardia, Tachycardia - GI/Abdominal Exam GI & Abdominal Exam: Soft. absent: Firm, Guarding, Rigid, Tenderness - Extremities Exam Additional comments: LUE palpable thrill multiple pseudoanyerusms - Neurological Exam Neurological Exam: Alert, Awake, Oriented x3 - Skin Skin Exam: Intact, Warm Assessment and Plan - Assessment and Plan (Free Text) Assessment: 52M w/ malfunctioning LUE AV Fistula s/p fistulagram Plan: Plan for OR tomorrow for revision of fistula and Permacath placement NPO @ [place] pain control anti-emetic PRN further recs per Dr. Medeiros surgical attending Gagan Thomas PGY1
[2017-04-03 21:38] LABS: BLOOD UREA NITROGEN 17 mg/dL (9-20); CALCIUM 8.8 mg/dl (8.6-10.4); GFR AFRICAN-AMERICAN > 60; GFR NON-AFRICAN AMERICAN > 60
[2017-04-03] MEDS: Oxycodone/Acetaminophen 5/325 mg Tab PO PRN (22:45)
[2017-04-04] MEDS ORDERED: Sodium Chloride 0.9% 500 ML IV ONE (00:38)
--- NOTE | 2017-04-04 01:48 | PN ---
DAILY PROGRESS NOTE DATE: 04/03/2017 SUBJECTIVE: The patient is seen today, 04/03/2017. He is status post hemodialysis today. PHYSICAL EXAMINATION: VITAL SIGNS: Blood pressure is 97/61, temperature 98.6, respiratory rate 20, and pulse 79. HEENT: Pupils equal, reactive to light. Normal-appearing mucosa of the conjunctivae, oropharynx, and nasal membrane mucosa. NECK: Supple. No JVD. No carotid bruit. No lymph node. No thyromegaly. CHEST AND LUNGS: Bilateral symmetrical expansion. Good air exchange. No rales, no rhonchi. CARDIOVASCULAR SYSTEM: PMI not localized. S1 and S2. No additional sounds. ABDOMEN: Normoactive bowel sounds. No tenderness. No organomegaly. No masses. EXTREMITIES: No cyanosis, no clubbing, no edema. WREATH AND GARLAND MAKER: Alert, awake, oriented x3. No neurological deficit could be appreciated. ASSESSMENT: Clotted and malfunctioning left upper arm arteriovenous fistula. PLAN: As per surgical garment inspector, vascular surgery plan to place a PermCath and to revise the left upper arm fistula. [facility] MD Ravi
[2017-04-04 07:08] LABS: BASO # 0.1 K/uL (0.0-0.2); BASO % 0.8 % (0.0-2.0); EOS # 0.3 K/uL (0.0-0.7); HEMOGLOBIN 13.8 g/dL (12.0-18.0); LYMPH # 1.1 K/uL (1.0-4.3); MEAN CORPUSCULAR HEMOGLOBIN 32.5 pg (27.0-31.0); MEAN CORPUSCULAR HGB CONC 34.2 g/dL (33.0-37.0); MEAN PLATELET VOLUME 9.4 fL (7.2-11.7); MONO # 0.9 K/uL (0.0-0.8); MONO % 10.9 % (0.0-10.0); NEUT # 6.3 K/uL (1.8-7.0); NEUT % 72.3 % (50.0-75.0); RBC 4.24 Mil/uL (4.40-5.90); RED CELL DISTRIBUTION WIDTH 14.3 % (11.5-14.5); WHITE BLOOD COUNT 8.7 K/uL (4.8-10.8)
[2017-04-04] MEDS ORDERED: Sodium Chloride 0.9% 1,000 ML IV ONE ×2 (07:45→13:11)
[2017-04-04] MEDS ORDERED: HEPARIN-NS 5,000 UNITS/500 ML 10,000 UNIT/1,000 ML BAG IV ONE (07:50)
[2017-04-04] MEDS ORDERED: ceFAZolin IV 2 gm in Dextrose 2 GM/50 ML BAG IVPB ONE (07:50)
[2017-04-04] MEDS ORDERED: Propofol 10 mg/ml Inj (20 ML) ONE (07:51)
[2017-04-04] MEDS ORDERED: Phenylephrine 10 mg/ml Inj ONE (07:51)
[2017-04-04 08:31] LABS: ALB/GLOB RATIO 0.9 (1.0-2.1); ALBUMIN 3.7 g/dL (3.5-5.0)
[2017-04-04] MEDS ORDERED: Sodium Chloride 0.9% 250 ML IV ONE ×2 (09:00→11:00)
[2017-04-04] MEDS: Multivitamin Vitamin B Complex (Nephro-Vite) Tab PO SCH (09:39)
--- NOTE | 2017-04-04 10:12 | RAD ---
PROCEDURE: HISTORY: As above COMPARISON: None TECHNIQUE: Total fluoroscopic time utilized during the procedure: 65.6 seconds ; 4.05 mGy cm 2 FINDINGS: Submitted images from the current procedure: 2 Please refer to the physician's notes performing the procedure. IMPRESSION: Less than 1 hour fluoroscopic time utilized during performance of the procedure
[2017-04-04] MEDS ORDERED: HYDROmorphone 0.5 mg/0.5 ml ISec IVP PRN (11:28)
--- NOTE | 2017-04-04 12:44 | PCM.SURG1 ---
Surgeon's Initial Post Op Note - Surgeon's Notes Surgeon: Dr. Medeiros Intelligence Manager: Dr. White Pre-Operative Diagnosis: End-stage Renal disease with aneurysms of AVF of left upper extremity Operative Findings: See op report Post-Operative Diagnosis: End-stage Renal disease with aneurysms and thrombosis of AVF of left upper extremity Operation Performed: Right IJV permacath placement, left upper extremity excision and ligation of AVF and aneurysms Specimen/Specimens Removed: AVF of left upper extremity, plaques and clots of aneurysm Estimated Blood Loss: EBL {In ML}: 300 Blood Products Given: N/A Drains Used: Patrikc Post-Op Condition: Good Date of Surgery/Procedure: 04/04/17 Time of Surgery/Procedure: 12:45
--- NOTE | 2017-04-04 13:17 | RAD ---
HISTORY: Come to PACU, and do permacath COMPARISON: Chest x-ray performed 04/28/16 TECHNIQUE: Chest, one view. FINDINGS: Right-sided dialysis catheter with distal tips appearing in the expected locations of the right atrium and deep right atrium/ IVC. LUNGS: Mild to moderate pulmonary venous congestion. [id number]-right apical pleural thickening. Please note that chest x-ray has limited sensitivity for the detection of pulmonary masses. PLEURA: No significant pleural effusion identified. No definite pneumothorax . CARDIOVASCULAR: Cardiomegaly. Atherosclerotic calcifications. OSSEOUS STRUCTURES: No acute osseous abnormality identified. VISUALIZED UPPER ABDOMEN: Unremarkable. OTHER FINDINGS: None. IMPRESSION: Right-sided dialysis catheter with distal tips appearing in the expected locations of the right atrium and deep right atrium/ IVC. Correlate clinically. Mild to moderate pulmonary venous congestion. Left greater than right apical pleural thickening. Cardiomegaly. Atherosclerotic calcifications. Line placement discussed with RUSTY Jane on 04/04/17 at 1:13 p.m.
[2017-04-04] MEDS: Oxycodone/Acetaminophen 5/325 mg Tab PO PRN ×2 (16:00→23:09)
[2017-04-04] MEDS ORDERED: Ergocalciferol 50,000 Intl Units Cap PO SCH ×2 (18:15→21:00)
--- NOTE | 2017-04-04 18:19 | CP.PCM.PN ---
Subjective - Date & Time of Evaluation Date of Evaluation: 04/04/17 Time of Evaluation: 16:00 - Subjective Subjective: SEEN ON RENAL F/U HAD HD YESTERDAY .. TOLERATED WELL S/P R TUNNELLED CATH FOR AVF REPAIR BY DR HOLLEY Objective - Vital Signs/Intake and Output Vital Signs (last 24 hours): Temp Pulse Resp BP Pulse Ox 97.4 F L 69 20 133/83 99 04/04/17 15:26 04/04/17 15:26 04/04/17 15:26 04/04/17 15:26 04/04/17 15:26 Intake and Output: 04/04/17 04/04/17 06:59 18:59 Intake Total 400 210 Output Total 10 Balance 400 200 - Medications Medications: Current Medications Cinacalcet (Sensipar) 120 mg PO QPM [facility] Last Admin: 04/04/17 18:11 Dose: 120 mg Clonidine HCl (Catapres) 0.1 mg PO BID [facility] Ergocalciferol (Drisdol 50,000 Intl Units Cap) 1 cap PO Q7D [facility] Famotidine (Pepcid) 20 mg PO DAILY [facility] Last Admin: 04/04/17 18:12 Dose: 20 mg Heparin Sodium (Porcine) (Heparin) 2,000 units IVP MWF [facility] Stop: 04/08/17 09:01 Last Admin: 04/03/17 09:16 Dose: 2,000 units Ondansetron HCl (Zofran Inj) 4 mg IVP Q6H PRN PRN Reason: Nausea/Vomiting Oxycodone/Acetaminophen (Percocet 5/325 Mg Tab) 1 tab PO Q6H PRN PRN Reason: pain Stop: 04/05/17 17:24 Last Admin: 04/04/17 16:00 Dose: 1 tab Sevelamer Carbonate (Renvela) 800 mg PO TIDCC [facility] Last Admin: 04/04/17 18:11 Dose: 800 mg Vitamin B Complex/Vit C/Folic Acid (Nephro-Memo) 1 tab PO DAILY [facility] Last Admin: 04/04/17 09:39 Dose: Not Given - Labs Labs: 04/04/17 06:56 04/04/17 06:56 PT 12.1 SECONDS (9.7-12.2) 03/31/17 11:40 INR 1.1 03/31/17 11:40 APTT 37 SECONDS (21-34) H 03/31/17 11:40 Assessment and Plan - Assessment and Plan (Free Text) Assessment: ESRD ON HD M W .. TO BE C/O ANEMIA OF CKD .. H/H STABLE MAL FUNCTIONING OF AVF MMP P : HD M W ADD VIT D CHANGE CLONIDIN DOSE FOR LOW BP
--- NOTE | 2017-04-05 06:53 | OP ---
PROCEDURE DATE: 04/02/2017 A 52-year-old male patient. PREOPERATIVE DIAGNOSES: End-stage renal disease, malfunctioned arteriovenous fistula. POSTOPERATIVE DIAGNOSES: End-stage renal disease, malfunctioned arteriovenous fistula. PROCEDURES: 1. Fistulogram. 2. Angioplasty of the dialysis access using 5 x 40, then 7 x 60, then 9 x 60 mm balloon. SURGEON: Dany Medeiros M.D. ANESTHESIA: Local anesthesia 1%. COMPLICATIONS: No complications. INDICATIONS: Mr. Garcia is a 52-year-old male patient. He has had multiple medical problems including end-stage renal disease. The patient on hemodialysis via left brachiocephalic AV fistula. He has been having multiple aneurysmal dilatation of the fistula and there was a strong pulsation there and the aneurysm is filled with clots, so the Dialysis Team had a very difficulty time dialyzing him. They brought him for fistulogram and possible angioplasty. The risks and benefits were explained to him and he agreed to proceed. DESCRIPTION OF PROCEDURE: The patient came to the cardiac cath, he was laid in supine position. He was prepped and draped in the usual sterile fashion. A 1% lidocaine was used to infiltrate the skin and the proximal parts of the fistula. needle used to access the fistula, wire inserted through it, and micropuncture sheath was placed over the wire. Fistulogram was done which showed multiple aneurysmal dilatation filled with clots and severe stenosis at the distal portion of the fistula. A 6000 units of heparin was given and we started to treat the stenosis using a 6-Dominican short sheath was inserted again over a wire. A Glidewire 0.035 was used to negotiate the stenosis and pass up to the vena cava. Over the wire, we used 5 x 40 mm balloon and we angioplastied the area and during angioplasty we injected contrast and we were able to see the blood flow through the artery and the blood flow to the ostial sites . The proximal port is really calcified, was patent, and the clots moved and stuck at the stenotic area, so I used AngioJet to declot the aneurysmal part to prevent flow up to the lung and I used 2 mg to dissolve it and we used AngioJet for declotting of the fistula. After that, they went up to 7 x 60 mm balloon and the 9 x 60 mm balloon. There was a very good response and we can feel the thrill in the fistula nicely, but still the fistula had these aneurysms. As I mentioned AngioJet was used to declot the fistula and used the small size proximally. I discussed with the patient that the fistula can be used now, but this aneurysmal dilatation have to be removed, otherwise, it will compromise the skin over it and will bleed and they agreed for the plan that to bring the patient to the operating room to excise this aneurysm and to insert the catheter for temporary dialysis for a month until they heal after the revise fistula and excise the aneurysm. No complications. The patient tolerated the procedure well, transferred to recovery room and back to the floor. No complication during the procedure. Dany Medeiros MD cc: Pasha Keene MD, Sameh MD MTDJake
[2017-04-05 07:58] LABS: WHITE BLOOD COUNT 7.6 K/uL (4.8-10.8)
[2017-04-05 08:04] LABS: MEAN CELL VOLUME 95.1 fL (80.0-94.0); MEAN CORPUSCULAR HEMOGLOBIN 32.2 pg (27.0-31.0); MEAN CORPUSCULAR HGB CONC 33.9 g/dL (33.0-37.0); MEAN PLATELET VOLUME 9.4 fL (7.2-11.7); RBC 3.41 Mil/uL (4.40-5.90); RED CELL DISTRIBUTION WIDTH 13.9 % (11.5-14.5)
[2017-04-05 08:11] LABS: CALCIUM 8.1 mg/dl (8.6-10.4)
[2017-04-05] MEDS: Multivitamin Vitamin B Complex (Nephro-Vite) Tab PO SCH (09:14)
[2017-04-05] MEDS: Oxycodone/Acetaminophen 5/325 mg Tab PO PRN ×2 (09:56→18:32)
[2017-04-05] MEDS ORDERED: Lidocaine 1%/Epinephrine 1:100000 30 ml vial IJ ONE ×2 (15:00→15:30)
--- NOTE | 2017-04-05 15:15 | CP.PCM.PN ---
Subjective - Date & Time of Evaluation Date of Evaluation: 04/05/17 Time of Evaluation: 06:45 - Subjective Subjective: Vascular surgery progress note for Dr. Maria R White, PGY-1 Pt S & E at bedside this AM. Pt reports LUE pain overnight. Explained operation to patient, need for further surgery for AVF creation. Objective - Vital Signs/Intake and Output Vital Signs (last 24 hours): Temp Pulse Resp BP Pulse Ox 97.8 F 65 20 128/80 100 04/05/17 08:00 04/05/17 08:00 04/05/17 08:00 04/05/17 00:00 04/05/17 08:00 Intake and Output: 04/05/17 04/05/17 06:59 18:59 Intake Total 350 120 Output Total 15 Balance 335 120 - Medications Medications: Current Medications Cinacalcet (Sensipar) 120 mg PO QPM [facility] Last Admin: 04/04/17 18:11 Dose: 120 mg Clonidine HCl (Catapres) 0.1 mg PO BID [facility] Last Admin: 04/05/17 09:14 Dose: Not Given Ergocalciferol (Drisdol 50,000 Intl Units Cap) 1 cap PO Q7D [facility] Last Admin: 04/04/17 21:15 Dose: 1 cap Famotidine (Pepcid) 20 mg PO DAILY [facility] Last Admin: 04/05/17 09:14 Dose: Not Given Heparin Sodium (Porcine) (Heparin) 2,000 units IVP MWF [facility] Stop: 04/08/17 09:01 Last Admin: 04/03/17 09:16 Dose: 2,000 units Lidocaine/Epinephrine (Lidocaine 1%/Epinephrine 1:139425 30 Ml) 30 ml IJ ONCE ONE Stop: 04/05/17 15:01 Ondansetron HCl (Zofran Inj) 4 mg IVP Q6H PRN PRN Reason: Nausea/Vomiting Oxycodone/Acetaminophen (Percocet 5/325 Mg Tab) 1 tab PO Q6H PRN PRN Reason: pain Stop: 04/05/17 17:24 Last Admin: 04/05/17 09:56 Dose: 1 tab Sevelamer Carbonate (Renvela) 800 mg PO TIDCC [facility] Last Admin: 04/05/17 12:07 Dose: 800 mg Vitamin B Complex/Vit C/Folic Acid (Nephro-Memo) 1 tab PO DAILY [facility] Last Admin: 04/05/17 09:14 Dose: Not Given - Labs Labs: 04/05/17 07:05 04/05/17 07:05 PT 12.1 SECONDS (9.7-12.2) 03/31/17 11:40 INR 1.1 03/31/17 11:40 APTT 37 SECONDS (21-34) H 03/31/17 11:40 - Constitutional Appears: Non-toxic, No Acute Distress - Head Exam Head Exam: ATRAUMATIC, NORMAL INSPECTION, NORMOCEPHALIC - Eye Exam Eye Exam: EOMI, Normal appearance - ENT Exam ENT Exam: Mucous Membranes Moist, Normal Exam - Neck Exam Neck Exam: Full ROM, Normal Inspection - Respiratory Exam Respiratory Exam: Chest Wall Tenderness (over permacath on R chest wall), NORMAL BREATHING PATTERN - Cardiovascular Exam Cardiovascular Exam: REGULAR RHYTHM, +S1, +S2 - GI/Abdominal Exam GI & Abdominal Exam: Soft. absent: Distended - Extremities Exam Additional comments: LUE with ginny wrap in place, tender over surgical site - Neurological Exam Neurological Exam: Alert, Awake, CN II-XII Intact, Oriented x3 - Psychiatric Exam Psychiatric exam: Normal Affect, Normal Mood - Skin Skin Exam: Dry, Intact, Normal Color, Warm Additional comments: LUE w/dressing in place- clean/dry intact Assessment and Plan - Assessment and Plan (Free Text) Assessment: 52M POD#1 s/p R IJ permacath placement, Left upper extremity excision and ligation of AVF and aneurysm Plan: Will pull back permacath by 1 cm Lidocaine ordered R arm precautions Plan for OR Saturday for AVF creation NPO after MN Saturday Further mgmt as per primary team Permacath ok to use for HD DW attending Cindy, PGY-1
--- NOTE | 2017-04-05 23:44 | CP.PCM.PN ---
Subjective - Date & Time of Evaluation Date of Evaluation: 04/05/17 Time of Evaluation: 16:00 - Subjective Subjective: SEEN ON RENAL F/U SEEN ON HD USING THE TUNNELLED CATH FOR HD .. WORKING WELL S/P L UPPER ARM AVF REPAIRS . ALL BANDEGED UP FEELS MPROVED Objective - Vital Signs/Intake and Output Vital Signs (last 24 hours): Temp Pulse Resp BP Pulse Ox 97.8 F 73 20 145/78 97 04/05/17 18:58 04/05/17 22:19 04/05/17 18:58 04/05/17 22:19 04/05/17 18:58 Intake and Output: 04/05/17 04/06/17 18:59 06:59 Intake Total 120 300 Output Total 10 Balance 120 290 - Medications Medications: Current Medications Cinacalcet (Sensipar) 120 mg PO QPM [facility] Last Admin: 04/05/17 18:34 Dose: 120 mg Clonidine HCl (Catapres) 0.1 mg PO BID [facility] Last Admin: 04/05/17 18:34 Dose: 0.1 mg Ergocalciferol (Drisdol 50,000 Intl Units Cap) 1 cap PO Q7D [facility] Last Admin: 04/04/17 21:15 Dose: 1 cap Famotidine (Pepcid) 20 mg PO DAILY [facility] Last Admin: 04/05/17 18:37 Dose: 20 mg Heparin Sodium (Porcine) (Heparin) 2,000 units IVP MWF [facility] Stop: 04/08/17 09:01 Last Admin: 04/05/17 14:45 Dose: 2,000 units Ondansetron HCl (Zofran Inj) 4 mg IVP Q6H PRN PRN Reason: Nausea/Vomiting Oxycodone/Acetaminophen (Percocet 5/325 Mg Tab) 1 tab PO Q6H PRN PRN Reason: pain Stop: 04/08/17 18:22 Last Admin: 04/05/17 18:32 Dose: 1 tab Sevelamer Carbonate (Renvela) 800 mg PO TIDCC [facility] Last Admin: 04/05/17 18:34 Dose: 800 mg Vitamin B Complex/Vit C/Folic Acid (Nephro-Memo) 1 tab PO DAILY [facility] Last Admin: 04/05/17 09:14 Dose: Not Given - Labs Labs: 04/05/17 07:05 04/05/17 07:05 PT 12.1 SECONDS (9.7-12.2) 03/31/17 11:40 INR 1.1 03/31/17 11:40 APTT 37 SECONDS (21-34) H 03/31/17 11:40 Assessment and Plan - Assessment and Plan (Free Text) Assessment: ESRD ON HD M W F .. WILL GIVE EXTRA HD IN AM FOR BETTER CLEARANCE ANEMIA OF CKD .. H/H STABLE S/P L UPPER EXTREMITY AVF REPAIRS S/P R IJ TUNNELLED HD CATH MMP P : C/O CURRENT CARE C/O PRESENT MANAGEMENT PO ANTIBIOTICS FOR PROPHYLAXIS EXTRA HD IN AM
[2017-04-06] MEDS: Multivitamin Vitamin B Complex (Nephro-Vite) Tab PO SCH (10:29)
--- NOTE | 2017-04-06 12:28 | CP.PCM.PN ---
Subjective - Date & Time of Evaluation Date of Evaluation: 04/06/17 Time of Evaluation: 07:15 - Subjective Subjective: Vascular Surgery- Dr. Medeiros Pt S&E at bedside this AM. no acute events overnight. tolerated dialysis yesterday via permacath. tolerating diet. serosang drainage from LUE leslie. denies F/C CP/SOB N/V/D Objective - Vital Signs/Intake and Output Vital Signs (last 24 hours): Temp Pulse Resp BP Pulse Ox 99 F 80 20 128/67 96 04/06/17 00:00 04/06/17 00:00 04/06/17 00:00 04/06/17 00:00 04/06/17 00:00 Intake and Output: 04/06/17 04/06/17 06:59 18:59 Intake Total 300 Output Total 10 Balance 290 - Medications Medications: Current Medications Azithromycin (Zithromax) 500 mg PO DAILY [facility] Last Admin: 04/06/17 10:33 Dose: 500 mg Cinacalcet (Sensipar) 120 mg PO QPM [facility] Last Admin: 04/05/17 18:34 Dose: 120 mg Clonidine HCl (Catapres) 0.1 mg PO BID [facility] Last Admin: 04/06/17 10:29 Dose: Not Given Ergocalciferol (Drisdol 50,000 Intl Units Cap) 1 cap PO Q7D [facility] Last Admin: 04/04/17 21:15 Dose: 1 cap Famotidine (Pepcid) 20 mg PO DAILY [facility] Last Admin: 04/06/17 10:29 Dose: 20 mg Ondansetron HCl (Zofran Inj) 4 mg IVP Q6H PRN PRN Reason: Nausea/Vomiting Oxycodone/Acetaminophen (Percocet 5/325 Mg Tab) 1 tab PO Q6H PRN PRN Reason: pain Stop: 04/08/17 18:22 Last Admin: 04/05/17 18:32 Dose: 1 tab Sevelamer Carbonate (Renvela) 800 mg PO TIDCC [facility] Last Admin: 04/06/17 07:59 Dose: 800 mg Vitamin B Complex/Vit C/Folic Acid (Nephro-Memo) 1 tab PO DAILY [facility] Last Admin: 04/06/17 10:29 Dose: 1 tab - Labs Labs: 04/05/17 07:05 04/05/17 07:05 PT 12.1 SECONDS (9.7-12.2) 03/31/17 11:40 INR 1.1 03/31/17 11:40 APTT 37 SECONDS (21-34) H 03/31/17 11:40 - Constitutional Appears: Non-toxic, No Acute Distress - Head Exam Head Exam: ATRAUMATIC - Eye Exam Eye Exam: EOMI. absent: Scleral icterus - Respiratory Exam Respiratory Exam: NORMAL BREATHING PATTERN. absent: Accessory Muscle Use, Respiratory Distress - Cardiovascular Exam Cardiovascular Exam: +S1, +S2. absent: Bradycardia, Tachycardia - GI/Abdominal Exam GI & Abdominal Exam: Soft. absent: Distended, Firm, Guarding, Rigid, Tenderness - Extremities Exam Additional comments: R.IJ permacath Radial pulses +2 b/l Leslie drain in place serosang drainage - Neurological Exam Neurological Exam: Alert, Awake, Oriented x3 - Psychiatric Exam Psychiatric exam: Normal Affect - Skin Skin Exam: Dry, Warm Assessment and Plan - Assessment and Plan (Free Text) Assessment: 52M s/p R IJ permacath placement, Left upper extremity excision and ligation of AVF and aneurysm POD#2 Plan: pull permacath out by 1cm; f/u xray R arm precautions Plan for OR Saturday for AVF creation NPO after MN Saturday Further mgmt as per primary team d/w surgical attending PGY1
[2017-04-06] MEDS: Oxycodone/Acetaminophen 5/325 mg Tab PO PRN (22:08)
[2017-04-07] MEDS: Multivitamin Vitamin B Complex (Nephro-Vite) Tab PO SCH (09:28)
--- NOTE | 2017-04-07 10:16 | RAD ---
Chest x-ray single frontal view History: Preoperative evaluation. Comparison: 04/04/2017 Findings: Patchy increased consolidative changes seen at the right lung base. Biapical pleural thickening with upper lobe granulomatous changes. Diffuse increased interstitial lung markings. Right hilar prominence. Small nodular density at the left costophrenic angle. Tortuous aorta. Degenerative changes in the spine. Right central venous catheter stable position. Surgical clips in the left axilla. Impression: Patchy increased consolidative changes seen at the right lung base. Biapical pleural thickening with upper lobe granulomatous changes. Diffuse increased interstitial lung markings. Right hilar prominence. Small nodular density at the left costophrenic angle.
[2017-04-07 11:37] LABS: HEMOGLOBIN 10.5 g/dL (12.0-18.0); MEAN CELL VOLUME 94.2 fL (80.0-94.0); MEAN CORPUSCULAR HEMOGLOBIN 32.4 pg (27.0-31.0); MEAN CORPUSCULAR HGB CONC 34.4 g/dL (33.0-37.0); MEAN PLATELET VOLUME 8.8 fL (7.2-11.7); RBC 3.24 Mil/uL (4.40-5.90); RED CELL DISTRIBUTION WIDTH 14.3 % (11.5-14.5)
[2017-04-07 11:45] LABS: INR 1.2; PROTHROMBIN TIME 13.2 SECONDS (9.7-12.2)
[2017-04-07 11:55] LABS: ALB/GLOB RATIO 0.9 (1.0-2.1); ALBUMIN 3.4 g/dL (3.5-5.0); CALCIUM 8.5 mg/dl (8.6-10.4)
--- NOTE | 2017-04-07 12:14 | CP.PCM.PN ---
<Roxana White - Last Filed: 04/07/17 12:12> Subjective - Date & Time of Evaluation Date of Evaluation: 04/07/17 Time of Evaluation: 08:00 - Subjective Subjective: Vascular surgery progress note for Dr. Medeiros-Roxana White, PGY-1 Pt S & E at bedside this AM. Pt reports continued LUE pain, no BM x 3 days, some right chest discomfort. Denies N & V, F & C. Understands that he will go to OR tomorrow for RUE AVF creation. Objective - Vital Signs/Intake and Output Vital Signs (last 24 hours): Temp Pulse Resp BP Pulse Ox 98.3 F 73 20 121/72 95 04/07/17 08:46 04/07/17 08:46 04/07/17 08:46 04/07/17 08:46 04/07/17 08:46 Intake and Output: 04/07/17 04/07/17 06:59 18:59 Intake Total 200 Output Total 0 Balance 200 - Medications Medications: Current Medications Azithromycin (Zithromax) 500 mg PO DAILY [facility] Last Admin: 04/07/17 09:28 Dose: 500 mg Cinacalcet (Sensipar) 120 mg PO QPM [facility] Last Admin: 04/06/17 21:17 Dose: 120 mg Clonidine HCl (Catapres) 0.1 mg PO BID [facility] Last Admin: 04/07/17 09:28 Dose: 0.1 mg Docusate Sodium (Colace) 100 mg PO DAILY [facility] Last Admin: 04/07/17 09:28 Dose: 100 mg Ergocalciferol (Drisdol 50,000 Intl Units Cap) 1 cap PO Q7D [facility] Last Admin: 04/04/17 21:15 Dose: 1 cap Famotidine (Pepcid) 20 mg PO DAILY [facility] Last Admin: 04/07/17 09:28 Dose: 20 mg Ondansetron HCl (Zofran Inj) 4 mg IVP Q6H PRN PRN Reason: Nausea/Vomiting Oxycodone/Acetaminophen (Percocet 5/325 Mg Tab) 1 tab PO Q6H PRN PRN Reason: pain Stop: 04/08/17 18:22 Last Admin: 04/06/17 22:08 Dose: 1 tab Sevelamer Carbonate (Renvela) 800 mg PO TIDCC [facility] Last Admin: 04/07/17 12:09 Dose: 800 mg Vitamin B Complex/Vit C/Folic Acid (Nephro-Memo) 1 tab PO DAILY [facility] Last Admin: 04/07/17 09:28 Dose: 1 tab - Labs Labs: 04/07/17 11:30 04/07/17 11:30 PT 12.1 SECONDS (9.7-12.2) 03/31/17 11:40 INR 1.1 03/31/17 11:40 APTT 37 SECONDS (21-34) H 03/31/17 11:40 - Constitutional Appears: Non-toxic, No Acute Distress - Head Exam Head Exam: ATRAUMATIC, NORMAL INSPECTION, NORMOCEPHALIC - Eye Exam Eye Exam: EOMI, Normal appearance - ENT Exam ENT Exam: Mucous Membranes Moist, Normal Exam - Neck Exam Neck Exam: Full ROM, Normal Inspection - Respiratory Exam Respiratory Exam: NORMAL BREATHING PATTERN - Cardiovascular Exam Cardiovascular Exam: REGULAR RHYTHM, +S1, +S2 - GI/Abdominal Exam GI & Abdominal Exam: Soft. absent: Distended, Tenderness - Extremities Exam Extremities Exam: absent: Normal Inspection Additional comments: LUE w/dressing in place- clean/dry/intact. Drain with scant sanguinous output - Neurological Exam Neurological Exam: Alert, Awake, CN II-XII Intact, Oriented x3 - Psychiatric Exam Psychiatric exam: Normal Affect, Normal Mood - Skin Skin Exam: Dry, Intact, Normal Color, Warm Assessment and Plan - Assessment and Plan (Free Text) Assessment: 52M POD#3 s/p R IJ permacath placement, Left upper extremity excision and ligation of AVF and aneurysm Plan: CXR ordered- no pneumothorax noted Bowel regimen started OR in AM for RUE AVF creation Consent in chart NPO pMN R arm precautions Further mgmt as per primary team DW attending Cindy, PGY-1 <Dany Medeiros - Last Filed: 04/12/17 16:43> Subjective - Subjective Subjective: patient was seen and examined For surgery tomorrow Objective - Vital Signs/Intake and Output Vital Signs (last 24 hours): Temp Pulse Resp BP Pulse Ox 98.4 F 74 20 149/67 98 04/11/17 16:00 04/11/17 16:00 04/11/17 16:00 04/11/17 16:00 04/11/17 08:54 - Labs Labs: 04/11/17 11:11 04/11/17 11:11 PT 13.2 SECONDS (9.7-12.2) H 04/07/17 11:30 INR 1.2 04/07/17 11:30 APTT 36 SECONDS (21-34) H 04/07/17 11:30
--- NOTE | 2017-04-07 14:54 | RAD ---
Chest x-ray two views History: Right-sided chest discomfort. Comparison: 04/28/2016 Findings: Nodular density at the right lung base, nonspecific. Diffuse increased interstitial lung markings. Venous congestion. Right hilar prominence. Biapical pleural thickening. Right central venous catheter tip extending into the right atrium. Surgical clips in the left axilla. Heart size within normal limits. Calcification at the aortic knob. Degenerative changes spine and shoulders. Impression: Nodular density at the right lung base, nonspecific. Diffuse increased interstitial lung markings. Venous congestion. Right hilar prominence. Biapical pleural thickening.
--- NOTE | 2017-04-07 21:38 | PN ---
DATE: 04/06/2017 SUBJECTIVE: The patient is seen, 04/06/2017. He was not in any cardiopulmonary distress. PHYSICAL EXAMINATION: VITAL SIGNS: Blood pressure 160/78, temperature 98.2, respiratory rate 20, and pulse 72. HEENT: Pupils equal, reactive to light. Normal-appearing mucosa of the conjunctivae, oropharynx, and nasal membrane mucosa. NECK: Supple. No JVD. No carotid bruit. No lymph node. No thyromegaly. CHEST/LUNGS: Bilateral symmetrical expansion. Good air exchange. No rales, no rhonchi. CARDIOVASCULAR SYSTEM: PMI not localized. S1, S2. No additional sounds. ABDOMEN: Normoactive bowel sounds. No tenderness. No organomegaly. No masses. EXTREMITIES: No cyanosis, no clubbing, no edema. CRUTCHER HELPER: Alert, awake, oriented x2. No neurological deficit could be appreciated. ASSESSMENT: Malfunctioning arteriovenous fistula with aneurysmal dilatation, status post removal. End-stage renal disease, on hemodialysis. Hypertension. PLAN: The patient is for placing another arteriovenous fistula and we will continue hemodialysis through the inserted Perma-Cath. [facility] MD Ravi
--- NOTE | 2017-04-07 23:00 | PN ---
DATE: 04/07/2017 SUBJECTIVE: He is complaining of right-sided chest pain that is exacerbated by movement. PHYSICAL EXAMINATION: VITAL SIGNS: Blood pressure is 121/65, temperature 98.9, respiratory rate 20, and pulse 67. HEENT: Pupils equal, reactive to light. Normal-appearing mucosa of the conjunctivae, oropharynx, and nasal membrane mucosa. NECK: Supple. No JVD. No carotid bruit. No lymph node. No thyromegaly. CHEST/LUNGS: Bilateral symmetrical expansion. Good air exchange. No rales, no rhonchi. CARDIOVASCULAR: PMI not localized. S1, S2. No additional sounds. ABDOMEN: Normoactive bowel sounds. No tenderness. No organomegaly. No masses. EXTREMITIES: No cyanosis, no clubbing, no edema. ADJUSTMENT EXAMINER: Alert, awake, oriented x2. No neurological deficit could be appreciated. ASSESSMENT: End-stage renal disease, on hemodialysis; status post removal of malfunctioning arteriovenous fistula with aneurysmal dilatation. Musculoskeletal right-sided chest pain. PLAN: We will order a chest x-ray and EKG and continue current medications. The patient is for reinsertion of AV fistula on the right arm. Georgia Rodrigues MD
[2017-04-07] MEDS: Oxycodone/Acetaminophen 5/325 mg Tab PO PRN (23:10)
[2017-04-08 07:29] LABS: CALCIUM 7.6 mg/dl (8.6-10.4)
[2017-04-08] MEDS ORDERED: ceFAZolin IV 2 gm in Dextrose 2 GM/50 ML BAG IVPB ONE (07:32)
[2017-04-08] MEDS ORDERED: Midazolam 2 MG/2 ML VIAL ONE (07:49)
[2017-04-08] MEDS ORDERED: Propofol 10 mg/ml Inj (20 ML) ONE (07:49)
--- NOTE | 2017-04-08 07:49 | PN ---
DATE: 04/05/2017. SUBJECTIVE: The patient is seen today 04/05/2017. He was seen during hemodialysis. PHYSICAL EXAMINATION: VITAL SIGNS: Blood pressure 158/70, temperature 97.8, respiratory rate 20 and pulse 72. HEENT: Pupils equal, reactive to light. Normal-appearing mucosa of the conjunctivae, oropharynx and nasal membrane mucosa. NECK: Supple. No JVD. No carotid bruit. No lymph node. No thyromegaly. CHEST AND LUNGS: Bilateral symmetrical expansion. Good air exchange. No rales, no rhonchi. CARDIOVASCULAR SYSTEM: PMI not localized. S1 and S2. No additional sounds. ABDOMEN: Normoactive bowel sounds. No tenderness. No organomegaly. No masses. EXTREMITIES: No cyanosis, no clubbing, no edema. CHAIN PERSON: Alert, awake, oriented x2. No neurological deficit could be appreciated. ASSESSMENT: Malfunctioning arteriovenous fistula, end-stage renal disease on hemodialysis, hypertension. PLAN: Continue hemodialysis with a PermCath and the patient is for placement of new AV fistula in the right arm. Follow recommendations of Vascular Surgery. [place] MD Ravi
[2017-04-08] MEDS ORDERED: Sodium Chloride 0.9% 1,000 ML IV ONE (08:00)
[2017-04-08] MEDS ORDERED: HEPARIN-NS 5,000 UNITS/500 ML 5,000 UNIT/500 ML BAG IV ONE (08:01)
[2017-04-08] MEDS ORDERED: HYDROmorphone 0.5 mg/0.5 ml ISec IVP PRN (09:24)
[2017-04-08] MEDS: Multivitamin Vitamin B Complex (Nephro-Vite) Tab PO SCH (10:00)
--- NOTE | 2017-04-08 10:55 | PCM.SURG1 ---
Surgeon's Initial Post Op Note - Surgeon's Notes Surgeon: Dr. Medeiros Reel Fed Printer: Dr. White, PGY-I, Simone Sotelo, OMS-III Pre-Operative Diagnosis: End-stage Renal Disease requiring dialysis Operative Findings: See op report Post-Operative Diagnosis: End-stage Renal Disease requiring dialysis Operation Performed: Right Upper extremity arterio-venous fistula creation Specimen/Specimens Removed: none Estimated Blood Loss: EBL {In ML}: 20 Blood Products Given: N/A Drains Used: No Drains Post-Op Condition: Good Date of Surgery/Procedure: 04/08/17 Time of Surgery/Procedure: 10:54
[2017-04-08] MEDS: HYDROmorphone 0.5 mg/0.5 ml ISec IVP PRN ×4 (10:58→11:50)
--- NOTE | 2017-04-08 11:59 | VASCLAB ---
PROCEDURE: Right Upper Extremity Venous Duplex Exam HISTORY: Vein mapping, pre op av fistula PRIORS: None. TECHNIQUE: Right upper extremity, internal jugular, subclavian, axillary, brachial, ulnar, radial, basilic and upper cephalic veins were evaluated. Flow was assessed with color Doppler, compressibility, assessment of phasic flow and augmentation response. Report prepared by PRISCILLA Vences, RVT FINDINGS: RIGHT: 1. Axillary Vein: Compressibility - Fully compressible: Thrombus - None 2. Brachial Vein: Compressibility - Fully compressible: Thrombus - None 3. Ulnar Vein:Compressibility - Fully compressible: Thrombus - None 4. Radial Vein:Compressibility - Fully compressible: Thrombus - None 5. Cephalic Vein: Compressibility - Fully compressible: thrombus - None 5.1. Upper Arm: Proximal Diameter: 0.11cm. Mid Diameter: 0.11cm. Distal Diameter: 0.05cm. 5.2. Forearm: Proximal Diameter: 0.10cm. Mid Diameter:0.10cm. Distal Diameter: 0.14cm 6. Basilic Vein:Compressibility - Fully compressible: thrombus - None 6.1. Upper Arm:Proximal Diameter: cm. Mid Diameter: cm. Distal Diameter: 0.28cm. 6.2. Forearm: Proximal Diameter: cm. Mid Diameter:cm. Distal Diameter: cm. OTHER FINDINGS: None. IMPRESSION: The diameter measurements of the right cephalic vein is measured between 0.05 cm and 0.11 cm and basilic vein is measured between 0.28 cm . There is chronic wall thickening noted in the right cephalic vein. Due to dialysis access right internal jugular and subclavian vein was not visulized.
--- NOTE | 2017-04-08 20:22 | CP.PCM.PN ---
Subjective - Date & Time of Evaluation Date of Evaluation: 04/08/17 Time of Evaluation: 15:00 - Subjective Subjective: SEEN ON RENAL F/U S/P R ARM AVF .. +ve thrill + ve briut S/P R IJ TUNNELLED CATH S/P L ARM AVF LIGATION SEEN IN BED .. FEELS IMPROVED RECIEVED HIS HD TODAY .. TOLERATED WELL Objective - Vital Signs/Intake and Output Vital Signs (last 24 hours): Temp Pulse Resp BP Pulse Ox 97.9 F 70 20 173/96 H 100 04/08/17 19:20 04/08/17 19:20 04/08/17 19:20 04/08/17 19:20 04/08/17 19:20 Intake and Output: 04/08/17 04/09/17 18:59 06:59 Intake Total 0 Output Total 15 Balance -15 - Medications Medications: Current Medications Azithromycin (Zithromax) 500 mg PO DAILY [facility] Last Admin: 04/08/17 13:19 Dose: 500 mg Cinacalcet (Sensipar) 120 mg PO QPM [facility] Last Admin: 04/08/17 18:58 Dose: 120 mg Clonidine HCl (Catapres) 0.1 mg PO BID [facility] Last Admin: 04/08/17 18:43 Dose: 0.1 mg Docusate Sodium (Colace) 100 mg PO DAILY [facility] Last Admin: 04/08/17 10:00 Dose: Not Given Ergocalciferol (Drisdol 50,000 Intl Units Cap) 1 cap PO Q7D [facility] Last Admin: 04/04/17 21:15 Dose: 1 cap Famotidine (Pepcid) 20 mg PO DAILY [facility] Last Admin: 04/08/17 10:00 Dose: Not Given Ondansetron HCl (Zofran Inj) 4 mg IVP Q6H PRN PRN Reason: Nausea/Vomiting Last Admin: 04/08/17 14:38 Dose: 4 mg Sevelamer Carbonate (Renvela) 800 mg PO TIDCC [facility] Last Admin: 04/08/17 17:50 Dose: 800 mg Vitamin B Complex/Vit C/Folic Acid (Nephro-Memo) 1 tab PO DAILY [facility] Last Admin: 04/08/17 10:00 Dose: Not Given - Labs Labs: 04/07/17 11:30 04/08/17 06:34 PT 13.2 SECONDS (9.7-12.2) H 04/07/17 11:30 INR 1.2 04/07/17 11:30 APTT 36 SECONDS (21-34) H 04/07/17 11:30 Assessment and Plan - Assessment and Plan (Free Text) Assessment: ESRD ON HD M W F ANEMIA OF CKD .. H/H STABLE AVF MALFUNCTION ON L UPPER ARM .. S/P LIGATION S/P R IJ TUNNELLED HD CATH S/P R UPPER ARM AVF CREATION P C/O CURRENT CARE C/O PRESENT MANAGEMENT C/O HD
[2017-04-08] MEDS ORDERED: Oxycodone/Acetaminophen 5/325 mg Tab PO ONE ×2 (21:41)
[2017-04-09] MEDS ORDERED: Morphine 4 MG/ML VIAL IV SCH (04:00)
--- NOTE | 2017-04-09 04:31 | CON ---
DATE: REASON FOR EVALUATION: Abnormal EKG and preoperative evaluation. HISTORY OF PRESENT ILLNESS: The patient is a 52-year-old male who has a history of hypertension, end-stage renal disease on hemodialysis for the past two years. The patient had an issue with his fistula at balloon angioplasty; however without success and the patient underwent right arteriovenous fistula placement. The patient denies any chest pain or shortness of breath. She does report some abdominal discomfort. The patient is unaware of any prior cardiac history in the past. SOCIAL HISTORY: The patient is nonsmoker. MEDICATIONS: Clonidine 0.1 mg twice a day, vitamin B complex, vitamin C and folic acid 1 tablet once a day. Oxycodone 1 tablet q.6 hours p.r.n., Zithromax 500 mg orally daily, Zofran 4 mg q.6 hours p.r.n. REVIEW OF SYSTEMS: No vomiting or diarrhea. No fever or chills. No retrosternal chest pain. No dizziness or syncope. PHYSICAL EXAMINATION: GENERAL: The patient is a middle-aged male who does not appear to be in any distress. VITAL SIGNS: Blood pressure 161/67, heart rate 72, temperature 97.7, respirations 20. HEENT: Normocephalic. NECK: No JVD. CHEST: Clear. HEART: Heart sounds are regular. ABDOMEN: Soft. EXTREMITIES: No pedal edema. LABORATORY DATA: Hemoglobin and hematocrit 10.5 and 30.5, white count and platelet count are within normal limits. SMA-7, sodium 131, potassium 5.1, chloride 91, CO2 of 25, glucose 74, BUN 61, creatinine 10.7. INR is 1.2, PTT is 36. EKG revealed a sinus rhythm associated AV block reversed arm leads. ASSESSMENT: 1. Hypertension. 2. Abnormal electrocardiogram but it is likely because of reversed arm leads. 3. End-stage renal disease, on hemodialysis. 4. Status post right upper arm arteriovenous shunt placement. RECOMMENDATIONS: Resume clonidine 0.1 mg twice a day. Obtain 12-lead EKG and schedule the patient for an echocardiogram. Renato Cobb MD [facility] # [id number]
[2017-04-09] MEDS ORDERED: Oxycodone/Acetaminophen 5/325 mg Tab PO PRN ×4 (09:58→11:06)
--- NOTE | 2017-04-09 10:07 | CP.PCM.PN ---
Subjective - Date & Time of Evaluation Date of Evaluation: 04/09/17 Time of Evaluation: 07:05 - Subjective Subjective: Vascular surgery progress note for Dr. Maria R White, PGY-1 Pt S & E at bedside. Pt reports a lot of uncontrolled pain overnight in RUE post op. Was not able to sleep due to pain. No other complaints. Objective - Vital Signs/Intake and Output Vital Signs (last 24 hours): Temp Pulse Resp BP Pulse Ox 98.2 F 80 20 142/68 99 04/09/17 01:00 04/09/17 01:00 04/09/17 01:00 04/09/17 01:00 04/09/17 01:00 Intake and Output: 04/09/17 04/09/17 06:59 18:59 Intake Total 400 Output Total 5 Balance 395 - Medications Medications: Current Medications Azithromycin (Zithromax) 500 mg PO DAILY [facility] Last Admin: 04/08/17 13:19 Dose: 500 mg Clonidine HCl (Catapres) 0.1 mg PO BID [facility] Last Admin: 04/08/17 18:43 Dose: 0.1 mg Docusate Sodium (Colace) 100 mg PO DAILY [facility] Last Admin: 04/08/17 10:00 Dose: Not Given Ergocalciferol (Drisdol 50,000 Intl Units Cap) 1 cap PO Q7D [facility] Last Admin: 04/04/17 21:15 Dose: 1 cap Famotidine (Pepcid) 20 mg PO DAILY [facility] Last Admin: 04/08/17 10:00 Dose: Not Given Ketorolac Tromethamine (Toradol) 5 mg PO Q6 PRN PRN Reason: Pain, moderate (4-7) Morphine Sulfate (Morphine) 2 mg IVP Q4 PRN PRN Reason: Pain, severe (8-10) Last Admin: 04/09/17 05:41 Dose: 2 mg Ondansetron HCl (Zofran Inj) 4 mg IVP Q6H PRN PRN Reason: Nausea/Vomiting Last Admin: 04/08/17 14:38 Dose: 4 mg Oxycodone/Acetaminophen (Percocet 5/325 Mg Tab) 1 tab PO Q4H PRN PRN Reason: Pain, severe (8-10) Stop: 04/12/17 09:59 Sevelamer Carbonate (Renvela) 800 mg PO TIDCC [facility] Last Admin: 04/09/17 08:46 Dose: 800 mg Vitamin B Complex/Vit C/Folic Acid (Nephro-Memo) 1 tab PO DAILY [facility] Last Admin: 04/08/17 10:00 Dose: Not Given - Labs Labs: 04/07/17 11:30 04/08/17 06:34 PT 13.2 SECONDS (9.7-12.2) H 04/07/17 11:30 INR 1.2 04/07/17 11:30 APTT 36 SECONDS (21-34) H 04/07/17 11:30 - Constitutional Appears: Non-toxic, No Acute Distress - Head Exam Head Exam: ATRAUMATIC, NORMAL INSPECTION, NORMOCEPHALIC - Eye Exam Eye Exam: EOMI, Normal appearance - ENT Exam ENT Exam: Mucous Membranes Moist, Normal Exam - Neck Exam Neck Exam: Full ROM, Normal Inspection - Respiratory Exam Respiratory Exam: NORMAL BREATHING PATTERN - Cardiovascular Exam Cardiovascular Exam: REGULAR RHYTHM, +S1, +S2 - GI/Abdominal Exam GI & Abdominal Exam: Soft. absent: Distended - Extremities Exam Extremities Exam: absent: Normal Inspection Additional comments: RUE w/island dressing in place -clean/dry/intact, arm in sling LUE with ginny bandage and dressing in place- clean/dry/intact, drain with scant sanguinous output - Neurological Exam Neurological Exam: Alert, Awake, CN II-XII Intact, Oriented x3 - Psychiatric Exam Psychiatric exam: Normal Affect, Normal Mood - Skin Skin Exam: Dry, Intact, Normal Color, Warm Assessment and Plan - Assessment and Plan (Free Text) Assessment: 52M POD#1 s/p RUE AVF creation and POD# 5 s/p exicision and ligation of of LUE AVF and permacath placement Plan: Monitor thrill Pain regimen Bowel regimen OOBTC Ambulate Further mgmt as per primary team Will TYRONE attending Cindy, PGY-1
[2017-04-09] MEDS: Multivitamin Vitamin B Complex (Nephro-Vite) Tab PO SCH (10:31)
[2017-04-09] MEDS ORDERED: HYDROmorphone 0.5 mg/0.5 ml ISec IVP PRN (11:32)
--- NOTE | 2017-04-09 14:00 | CARD ---
APPROVED REPORT EKG Measurement Heart [id number] SD 246P [id number] <Conclusion> Sinus rhythm with 1st degree AV block Right superior axis deviation Abnormal ECG
--- NOTE | 2017-04-09 15:44 | CP.PCM.PN ---
Subjective - Date & Time of Evaluation Date of Evaluation: 04/09/17 Time of Evaluation: 13:00 - Subjective Subjective: SEEN ON RENAL F/U LYING FLAT IN BED RESTING C/O LOCAL PAIN 2/2 SURGERY HAD HD YESTERDAY .. TOLERATED WELL ALL PREVIOUS EMR REVIEWED Objective - Vital Signs/Intake and Output Vital Signs (last 24 hours): Temp Pulse Resp BP Pulse Ox 98.4 F 80 20 179/97 H 97 04/09/17 08:00 04/09/17 08:00 04/09/17 08:00 04/09/17 08:00 04/09/17 08:00 Intake and Output: 04/09/17 04/09/17 06:59 18:59 Intake Total 400 400 Output Total 5 5 Balance 395 395 - Medications Medications: Current Medications Azithromycin (Zithromax) 500 mg PO DAILY [facility] Last Admin: 04/09/17 10:31 Dose: 500 mg Clonidine HCl (Catapres) 0.1 mg PO BID [facility] Last Admin: 04/09/17 10:30 Dose: 0.1 mg Docusate Sodium (Colace) 100 mg PO DAILY [facility] Last Admin: 04/09/17 10:31 Dose: 100 mg Ergocalciferol (Drisdol 50,000 Intl Units Cap) 1 cap PO Q7D [facility] Last Admin: 04/04/17 21:15 Dose: 1 cap Famotidine (Pepcid) 20 mg PO DAILY [facility] Last Admin: 04/09/17 10:31 Dose: 20 mg Hydromorphone HCl (Dilaudid) 0.5 mg IVP Q3H PRN PRN Reason: Pain, severe (8-10) Ketorolac Tromethamine (Toradol) 15 mg IVP Q6 PRN PRN Reason: Pain, Mild (1-3) Morphine Sulfate (Morphine) 2 mg IVP Q4 PRN PRN Reason: Pain, severe (8-10) Last Admin: 04/09/17 05:41 Dose: 2 mg Ondansetron HCl (Zofran Inj) 4 mg IVP Q6H PRN PRN Reason: Nausea/Vomiting Last Admin: 04/08/17 14:38 Dose: 4 mg Sevelamer Carbonate (Renvela) 800 mg PO TIDCC [facility] Last Admin: 04/09/17 12:07 Dose: 800 mg Vitamin B Complex/Vit C/Folic Acid (Nephro-Memo) 1 tab PO DAILY [facility] Last Admin: 04/09/17 10:31 Dose: 1 tab Zolpidem Tartrate (Ambien) 5 mg PO HS PRN PRN Reason: Insomnia - Labs Labs: 04/07/17 11:30 04/08/17 06:34 PT 13.2 SECONDS (9.7-12.2) H 04/07/17 11:30 INR 1.2 04/07/17 11:30 APTT 36 SECONDS (21-34) H 04/07/17 11:30 Assessment and Plan - Assessment and Plan (Free Text) Assessment: ESRD ON HD M W F .. TO BE C/O ANEMIA OF CKD .. HGB STABLE S/P R UARM AVF AND CLOSURE OF L SIDED FISTULA P : C/O CURRENT CARE
--- NOTE | 2017-04-09 18:41 | PN ---
SUBJECTIVE: The patient's denies any chest pain or shortness of breath. He underwent hemodialysis yesterday, he complains of insomnia. PHYSICAL EXAMINATION: VITAL SIGNS: Blood pressure 142/68, heart rate 80, temperature 98.2, and respirations 20. HEENT: Pale conjunctivae. CHEST: Clear. HEART: S1 and S2 regular. EXTREMITIES: No edema. LABORATORY DATA: Today's blood sugars are 83 and 102. Yesterday's EKG, revealed sinus rhythm; however, there were reversal limb leads and needed other repeat EKG. ASSESSMENT AND PLAN: 1. Status post right upper arm arteriovenous fistula placement. 2. End-stage renal disease, on hemodialysis. 3. Hypertension. 4. Mild anemia. RECOMMENDATIONS: Continue Ambien 5 mg nightly, . Continue clonidine at 0.1 mg twice a day, Colace 100 mg once a day, Dilaudid 0.5 mg intravenously q.3 hours p.r.n., Zithromax 500 mg orally daily. I will start Ambien 5 mg nightly and follow echocardiographic study performed today. Renato Cobb MD
--- NOTE | 2017-04-09 22:54 | CARD ---
APPROVED REPORT EXAM: Two-dimensional and M-mode echocardiogram with Doppler and color Doppler. Other Information Quality : GoodRhythm : INDICATION Pre-Op ESRD RISK FACTORS Hypertension 2D DIMENSIONS IVSd1.0 (0.7-1.1cm)LVDd5.7 (3.9-5.9cm) LVOT Diameter2.1 (1.8-2.4cm)PWd1.2 (0.7-1.1cm) LVDs3.4 (2.5-4.0cm)FS (%) 40.5 % LVEF (%)70.6 (>50%) M-Mode DIMENSIONS Left Atrium (MM)4.32 (2.5-4.0cm)Aortic Root3.31 (2.2-3.7cm) Aortic Cusp Exc.2.10 (1.5-2.0cm) Aortic Valve AoV Peak Ppavpyhu372.7cm/sAoV VTI40.8cmAO Peak GR.23mmHg LVOT Peak Axexiyew522.0cm/sLVOT VTI25.67cmAO Mean GR.14mmHg JOSE (VMAX)2.80zr3YSE (VTI)2.24cm2 Mitral Valve MV E Xzwmahlo308.0cm/sMV E Peak Gr.22mmHgMV A Bteayvzo230.2cm/s MV E Mean Gr.11mmHgMV VWZ93pcO/A ratio0.9 MVA (PHT)2.33cm2 TDI E/Lateral E'0.0E/Medial E'0.0 Tricuspid Valve TR Peak Rwkbsmkk512lh/sTR Peak Gr.79uuPiHQNT84xyBa <Conclusion> Left ventricle: thickness: normal; size: normal; overall ejection fraction: 65%: diastolic filling pressures: elevated Mitral valve: annulus: Posterior discrete MAC: leaflets: normal: excursion: mild restriction; 11mmHg mean trans-mitral gradient: no significant incompetence: MV area - 1.2aq7xfti atrium: normal Aortic valve: leaflets: mild clcific thickening: excursion: normal; 25mmHg peak trans-aortic gradient: No significant incompetence: aortic root: normal; AV area 2.1cm2 Right sided Structures: Promient eustachian valve Pulmonary valve: normal; no significant incompetence; Tricuspid valve: normal; no significant incompetence: Intra-cardiac hemodynamics: pulmonary systolic pressures: 40mmHg;; central venous pressures: normal No pericardial effusion
--- NOTE | 2017-04-10 01:41 | PN ---
DATE: 04/09/2017. SUBJECTIVE: The patient is seen today April 09, 2017. He is not in any cardiopulmonary distress. The patient has pain at the site of the AV fistula surgery done on the right upper extremity yesterday. PHYSICAL EXAMINATION: VITAL SIGNS: Blood pressure 153/75, temperature 98.4, respiratory rate 20 and pulse 83. HEENT: Pupils equal, reactive to light. Normal-appearing mucosa of the conjunctivae, oropharynx and nasal membrane mucosa. NECK: Supple. No JVD. No carotid bruit. No lymph node, no thyromegaly. CHEST AND LUNGS: Bilateral symmetrical expansion. Good air exchange. No rales, no rhonchi. CARDIOVASCULAR SYSTEM: PMI not localized. S1, S2. No additional sounds. ABDOMEN: Normoactive bowel sounds. No tenderness. No organomegaly. No masses. EXTREMITIES: No cyanosis, no clubbing, no edema. MUSIC THERAPIST: Alert, awake, oriented x2. No neurological deficit could be appreciated. ASSESSMENT: 1. Malfunctioning arteriovenous fistula status post removal with insertion of a new arteriovenous fistula on the right upper extremity and currently the patient is hemodialyzed for the newly inserted Perma-Cath. 2. End-stage renal disease on hemodialysis. 3. Hypertension. PLAN: Continue current management and pain management and follow recommendation of Vascular Surgery and director of golf. Georgia Rodrigues MD
[2017-04-10] MEDS: Multivitamin Vitamin B Complex (Nephro-Vite) Tab PO SCH (10:15)
[2017-04-10 12:21] VITALS: RESP 20
--- NOTE | 2017-04-10 19:10 | CP.PCM.PN ---
Subjective - Date & Time of Evaluation Date of Evaluation: 04/10/17 Time of Evaluation: 16:30 - Subjective Subjective: Vascular surgery progress note for Dr. Maria R White, PGY-1 Pt S & E at bedside. Pt reports a lot of pain in his arms. Per nursing, pt declining pain medications until the evening. Reports tolerating diet. Has not had a BM in 3 days. Objective - Vital Signs/Intake and Output Vital Signs (last 24 hours): Temp Pulse Resp BP Pulse Ox 98.6 F 75 20 163/75 H 97 04/10/17 16:45 04/10/17 16:45 04/10/17 16:45 04/10/17 17:53 04/10/17 16:45 - Medications Medications: Current Medications Azithromycin (Zithromax) 500 mg PO DAILY [facility] Last Admin: 04/10/17 10:16 Dose: Not Given Clonidine HCl (Catapres) 0.1 mg PO BID [facility] Last Admin: 04/10/17 17:53 Dose: 0.1 mg Docusate Sodium (Colace) 100 mg PO DAILY [facility] Last Admin: 04/10/17 17:52 Dose: 100 mg Ergocalciferol (Drisdol 50,000 Intl Units Cap) 1 cap PO Q7D [facility] Last Admin: 04/04/17 21:15 Dose: 1 cap Famotidine (Pepcid) 20 mg PO DAILY [facility] Last Admin: 04/10/17 10:27 Dose: Not Given Hydromorphone HCl (Dilaudid) 0.5 mg IVP Q3H PRN PRN Reason: Pain, severe (8-10) Ketorolac Tromethamine (Toradol) 15 mg IVP Q6 PRN PRN Reason: Pain, Mild (1-3) Morphine Sulfate (Morphine) 2 mg IVP Q4 PRN PRN Reason: Pain, severe (8-10) Last Admin: 04/09/17 05:41 Dose: 2 mg Ondansetron HCl (Zofran Inj) 4 mg IVP Q6H PRN PRN Reason: Nausea/Vomiting Last Admin: 04/08/17 14:38 Dose: 4 mg Sevelamer Carbonate (Renvela) 800 mg PO TIDCC [facility] Last Admin: 04/10/17 17:52 Dose: 800 mg Vitamin B Complex/Vit C/Folic Acid (Nephro-Memo) 1 tab PO DAILY [facility] Last Admin: 04/10/17 10:15 Dose: Not Given Zolpidem Tartrate (Ambien) 5 mg PO HS PRN PRN Reason: Insomnia Last Admin: 04/10/17 00:43 Dose: 5 mg - Labs Labs: 04/07/17 11:30 04/08/17 06:34 PT 13.2 SECONDS (9.7-12.2) H 04/07/17 11:30 INR 1.2 04/07/17 11:30 APTT 36 SECONDS (21-34) H 04/07/17 11:30 - Constitutional Appears: Non-toxic, No Acute Distress - Head Exam Head Exam: ATRAUMATIC, NORMAL INSPECTION, NORMOCEPHALIC - Eye Exam Eye Exam: EOMI, Normal appearance - ENT Exam ENT Exam: Mucous Membranes Moist, Normal Exam - Neck Exam Neck Exam: Full ROM, Normal Inspection - Respiratory Exam Respiratory Exam: NORMAL BREATHING PATTERN - Cardiovascular Exam Cardiovascular Exam: REGULAR RHYTHM, +S1, +S2 - GI/Abdominal Exam GI & Abdominal Exam: absent: Distended - Extremities Exam Extremities Exam: Tenderness. absent: Normal Inspection Additional comments: RUE AVF palpable thrill RUE dressing clean/dry/intact Tender to palpation over bilateral arms LUE dressing clean/dry/intact Drain with scant sanguinous output - Neurological Exam Neurological Exam: Alert, Awake, CN II-XII Intact, Oriented x3 - Psychiatric Exam Psychiatric exam: Normal Affect, Normal Mood - Skin Skin Exam: Dry, Intact, Normal Color, Warm Assessment and Plan - Assessment and Plan (Free Text) Assessment: 52M POD#2 s/p RUE AVF creation and POD# 6 s/p exicision and ligation of of LUE AVF and permacath placement Plan: Monitor thrill Pain regimen Bowel regimen OOBTC Ambulate Further mgmt as per primary team Further recs as per surgical attending Will TYRONE attending Cindy, PGY-1
--- NOTE | 2017-04-10 22:19 | CP.PCM.PN ---
Subjective - Date & Time of Evaluation Date of Evaluation: 04/10/17 Time of Evaluation: 15:00 - Subjective Subjective: \ SEEN ON RENAL F/U ON HD M W F S/P LUE AVF CLOSURE .. S/P RUE AVFCREATION S/P L IJ TUNNELLED HD CATH INSERTION LYING FLAT IN BED RESTING Objective - Vital Signs/Intake and Output Vital Signs (last 24 hours): Temp Pulse Resp BP Pulse Ox 98.6 F 75 20 163/75 H 97 04/10/17 16:45 04/10/17 16:45 04/10/17 16:45 04/10/17 17:53 04/10/17 16:45 - Medications Medications: Current Medications Azithromycin (Zithromax) 500 mg PO DAILY [facility] Last Admin: 04/10/17 10:16 Dose: Not Given Clonidine HCl (Catapres) 0.1 mg PO BID [facility] Last Admin: 04/10/17 17:53 Dose: 0.1 mg Docusate Sodium (Colace) 100 mg PO DAILY [facility] Last Admin: 04/10/17 17:52 Dose: 100 mg Ergocalciferol (Drisdol 50,000 Intl Units Cap) 1 cap PO Q7D [facility] Last Admin: 04/04/17 21:15 Dose: 1 cap Famotidine (Pepcid) 20 mg PO DAILY [facility] Last Admin: 04/10/17 10:27 Dose: Not Given Hydromorphone HCl (Dilaudid) 0.5 mg IVP Q3H PRN PRN Reason: Pain, severe (8-10) Ketorolac Tromethamine (Toradol) 15 mg IVP Q6 PRN PRN Reason: Pain, Mild (1-3) Morphine Sulfate (Morphine) 2 mg IVP Q4 PRN PRN Reason: Pain, severe (8-10) Last Admin: 04/10/17 21:11 Dose: 2 mg Ondansetron HCl (Zofran Inj) 4 mg IVP Q6H PRN PRN Reason: Nausea/Vomiting Last Admin: 04/08/17 14:38 Dose: 4 mg Sevelamer Carbonate (Renvela) 800 mg PO TIDCC [facility] Last Admin: 04/10/17 17:52 Dose: 800 mg Vitamin B Complex/Vit C/Folic Acid (Nephro-Memo) 1 tab PO DAILY [facility] Last Admin: 04/10/17 10:15 Dose: Not Given Zolpidem Tartrate (Ambien) 5 mg PO HS PRN PRN Reason: Insomnia Last Admin: 04/10/17 00:43 Dose: 5 mg - Labs Labs: 04/07/17 11:30 04/08/17 06:34 PT 13.2 SECONDS (9.7-12.2) H 04/07/17 11:30 INR 1.2 04/07/17 11:30 APTT 36 SECONDS (21-34) H 04/07/17 11:30 Assessment and Plan - Assessment and Plan (Free Text) Assessment: \ ESRD ON HD M W F .. TO BE C/O ANEMIA OF CKD .. HGB 10.5.. STABLE MALFUNCTIONED LUE AVF .. S/P CLOSURE P : C/O CURRRENT CARE C/O PRESENT MANAGEMENT
--- NOTE | 2017-04-11 00:21 | PN ---
DATE: 04/10/2017 SUBJECTIVE: Patient is seen today, 04/10/2017. He still has a draining tube in the left upper arm wound. OBJECTIVE: VITAL SIGNS: Blood pressure is 163/75, temperature 98.6, respiratory rate 20, and pulse 75. HEENT: Pupils equal, reactive to light. Normal-appearing mucosa of the conjunctivae, oropharynx and nasal membrane mucosa. NECK: Supple. No JVD. No carotid bruit. No lymph node. No thyromegaly. CHEST AND LUNGS: Bilateral symmetrical expansion. Good air exchange. No rales, no rhonchi. CARDIOVASCULAR: PMI not localized. S1, S2. No additional sounds. ABDOMEN: Normoactive bowel sounds. No tenderness. No organomegaly. No masses. EXTREMITIES: No cyanosis, no clubbing, no edema. PIANO TECHNICIAN: Alert, awake, oriented x2. No neurological deficits could be appreciated. ASSESSMENT: 1. Status post removal of arteriovenous fistula of the left upper arm. Status post tunneled catheter insertion from which patient is getting hemodialysis now. 2. Status post placement of the new arteriovenous shunt on the right arm. 3. Hypertension. PLAN: Continue current antihypertensive medications and follow surgical recommendations. Continue hemodialysis as per Nuclear Equipment Sales Engineer. Orlando MD Ravi
--- NOTE | 2017-04-11 07:34 | OP ---
PROCEDURE DATE: PREOPERATIVE DIAGNOSIS: End-stage renal disease. POSTOPERATIVE DIAGNOSIS: End-stage renal disease. PROCEDURE: Creation of right brachiocephalic AV fistula. SURGEON: Dany Medeiros M.D. TYPE OF ANESTHESIA: General anesthesia. COMPLICATIONS: No complications INDICATIONS: Mr. Garcia is a 52-year-old male patient who has multiple medical problems including long-standing end-stage renal disease, on hemodialysis for a long time now. The patient has dialysis via left brachiobasilic AV fistula and he noted to have dilatation and clot to the fistula. 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 Perm-A-Cath was inserted for dialysis and the patient reported today for creation of new AV fistula. Risks and benefits explained to him and he agreed to proceed. DESCRIPTION OF PROCEDURE: The patient came to the operating room. He was lying in a supine position. He was prepped and draped in usual sterile fashion. General anesthesia was given for him. Ultrasound was done to confirm the finding of the vein mapping. The ultrasound showed that the veins are small and confirming the finding on the vein mapping. The patient is young and tried to create the fistula for him to be able to use for long time, so we decided to try to use the cephalic vein. Incision was made at the lower crease of the antecubital area. This was carried down to subcutaneous tissue, extended to the cephalic vein and started to dissect the cephalic vein distally going to the forearm, cut the branches and bring it in such a way medially to be able to reach the brachial artery and after having a good segment of about 2-12 inch of the vein, incision was extended to the arterial side of the brachial artery and we opened the fascia over it and started dissecting brachial artery at about 1-1/2 to 2 inches of the brachial artery. Vessel loops applied. As we got the vein and able to ____ the whole length to confirm the patency of the vein and after that 6000 units of heparin was given, and we controlled the arteries. Using 11 blade, I opened the artery and I did end-to-side anastomosis between the cephalic vein and artery of the right. I cut the cephalic vein in such a way to be in a length to help the perfusion. There were no complications. Before the last couple there was good thrill. We irrigated the wound several times and we closed in layer using 2-0 Vicryl and 3-0 Monocryl. No complications during the procedure, and the patient tolerated it well and transferred to recovery room and after that will be transferred to floor. Dany Medeiros MD
--- NOTE | 2017-04-11 08:28 | PN ---
SUBJECTIVE: The patient denies any chest pain. PHYSICAL EXAMINATION: VITAL SIGNS: Blood pressure 159/91, heart rate , temperature 98, and respirations 18. HEENT: Pale conjunctiva. CHEST: Clear. HEART: S1 and S2, regular. EXTREMITIES: No edema. LABORATORY DATA: Today's blood sugars are 83 and 128 respectively. Echocardiographic study revealed normal ejection fraction. Mitral valve area measured at 1.5 cm2. ASSESSMENT: 1. Consider mitral valve stenosis. 2. Status post right upper arm arteriovenous fistula placement. 3. Anemia. 4. Hypertension. CONDITIONS: Continue current clonidine 0.1 mg twice a day, Dilaudid 0.5 mg intravenously q.3 hours p.r.n., Zithromax 500 mg orally daily, Lasix 20 mg orally once a day. The patient will undergo hemodialysis. I would review the echocardiographic study myself regarding the mitral valve stenosis issue. Renato Cobb MD
--- NOTE | 2017-04-11 08:38 | CP.PCM.PN ---
Subjective - Date & Time of Evaluation Date of Evaluation: 04/11/17 Time of Evaluation: 06:55 - Subjective Subjective: Vasc Sx: Dr Medeiros Subjective: Pt S&E. NAEO. Resting comfortably. Pain well controlled. Denies f/c, n/v, paresthesias or weakness in either arm. 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 strength Objective - Vital Signs/Intake and Output Vital Signs (last 24 hours): Temp Pulse Resp BP Pulse Ox 98.4 F 77 20 129/64 97 04/11/17 00:00 04/11/17 00:00 04/11/17 00:00 04/11/17 00:00 04/11/17 00:00 Intake and Output: 04/11/17 04/11/17 06:59 18:59 Intake Total 320 Balance 320 - Medications Medications: Current Medications Azithromycin (Zithromax) 500 mg PO DAILY [facility] Last Admin: 04/10/17 10:16 Dose: Not Given Clonidine HCl (Catapres) 0.1 mg PO BID [facility] Last Admin: 04/10/17 17:53 Dose: 0.1 mg Docusate Sodium (Colace) 100 mg PO DAILY [facility] Last Admin: 04/10/17 17:52 Dose: 100 mg Ergocalciferol (Drisdol 50,000 Intl Units Cap) 1 cap PO Q7D [facility] Last Admin: 04/04/17 21:15 Dose: 1 cap Famotidine (Pepcid) 20 mg PO DAILY [facility] Last Admin: 04/10/17 10:27 Dose: Not Given Hydromorphone HCl (Dilaudid) 0.5 mg IVP Q3H PRN PRN Reason: Pain, severe (8-10) Ketorolac Tromethamine (Toradol) 15 mg IVP Q6 PRN PRN Reason: Pain, Mild (1-3) Morphine Sulfate (Morphine) 2 mg IVP Q4 PRN PRN Reason: Pain, severe (8-10) Last Admin: 04/10/17 21:11 Dose: 2 mg Ondansetron HCl (Zofran Inj) 4 mg IVP Q6H PRN PRN Reason: Nausea/Vomiting Last Admin: 04/08/17 14:38 Dose: 4 mg Sevelamer Carbonate (Renvela) 800 mg PO TIDCC [facility] Last Admin: 04/11/17 08:05 Dose: 800 mg Vitamin B Complex/Vit C/Folic Acid (Nephro-Memo) 1 tab PO DAILY [facility] Last Admin: 04/10/17 10:15 Dose: Not Given Zolpidem Tartrate (Ambien) 5 mg PO HS PRN PRN Reason: Insomnia Last Admin: 04/11/17 01:18 Dose: 5 mg - Labs Labs: 04/07/17 11:30 04/08/17 06:34 PT 13.2 SECONDS (9.7-12.2) H 04/07/17 11:30 INR 1.2 04/07/17 11:30 APTT 36 SECONDS (21-34) H 04/07/17 11:30 Assessment and Plan - Assessment and Plan (Free Text) Assessment: 52M s/p left AVF ligation and right AVF placement w/ permacath Plan: dialysis via permacath will d/c left arm drain f/u outpatient for right fistula evaluation will d/w Dr Waldemar Daniel, PGY3
[2017-04-11 08:55] VITALS: O2SAT 98
[2017-04-11] MEDS: Multivitamin Vitamin B Complex (Nephro-Vite) Tab PO SCH (10:49)
[2017-04-11 11:20] LABS: BASO % 0.6 % (0.0-2.0); EOS # 0.4 K/uL (0.0-0.7); EOS % 5.8 % (0.0-4.0); HEMOGLOBIN 10.6 g/dL (12.0-18.0); LYMPH # 1.1 K/uL (1.0-4.3); LYMPH % 14.3 % (20.0-40.0); MEAN CELL VOLUME 94.1 fL (80.0-94.0); MEAN CORPUSCULAR HEMOGLOBIN 31.7 pg (27.0-31.0); MEAN CORPUSCULAR HGB CONC 33.7 g/dL (33.0-37.0); MEAN PLATELET VOLUME 8.2 fL (7.2-11.7); MONO # 0.8 K/uL (0.0-0.8); MONO % 10.9 % (0.0-10.0); NEUT # 5.2 K/uL (1.8-7.0); NEUT % 68.4 % (50.0-75.0); RBC 3.34 Mil/uL (4.40-5.90); RED CELL DISTRIBUTION WIDTH 14.5 % (11.5-14.5); WHITE BLOOD COUNT 7.6 K/uL (4.8-10.8)
[2017-04-11 11:45] LABS: CALCIUM 9.4 mg/dl (8.6-10.4)
--- NOTE | 2017-04-11 16:47 | CP.PCM.PN ---
Subjective - Date & Time of Evaluation Date of Evaluation: 04/11/17 Time of Evaluation: 16:59 - Subjective Subjective: Alert, awake, ambulatory. left arm dressing intact, no bleeding. Objective - Vital Signs/Intake and Output Vital Signs (last 24 hours): Temp Pulse Resp BP Pulse Ox 98.2 F 79 20 167/85 H 98 04/11/17 08:54 04/11/17 08:54 04/11/17 08:54 04/11/17 08:54 04/11/17 08:54 Intake and Output: 04/11/17 04/11/17 06:59 18:59 Intake Total 320 400 Balance 320 400 - Medications Medications: Current Medications Azithromycin (Zithromax) 500 mg PO DAILY [facility] Last Admin: 04/11/17 10:49 Dose: 500 mg Clonidine HCl (Catapres) 0.1 mg PO BID [facility] Last Admin: 04/11/17 10:49 Dose: 0.1 mg Docusate Sodium (Colace) 100 mg PO DAILY [facility] Last Admin: 04/11/17 10:49 Dose: 100 mg Ergocalciferol (Drisdol 50,000 Intl Units Cap) 1 cap PO Q7D [facility] Last Admin: 04/04/17 21:15 Dose: 1 cap Famotidine (Pepcid) 20 mg PO DAILY [facility] Last Admin: 04/11/17 10:49 Dose: 20 mg Hydromorphone HCl (Dilaudid) 0.5 mg IVP Q3H PRN PRN Reason: Pain, severe (8-10) Ketorolac Tromethamine (Toradol) 15 mg IVP Q6 PRN PRN Reason: Pain, Mild (1-3) Morphine Sulfate (Morphine) 2 mg IVP Q4 PRN PRN Reason: Pain, severe (8-10) Last Admin: 04/10/17 21:11 Dose: 2 mg Ondansetron HCl (Zofran Inj) 4 mg IVP Q6H PRN PRN Reason: Nausea/Vomiting Last Admin: 04/08/17 14:38 Dose: 4 mg Sevelamer Carbonate (Renvela) 800 mg PO TIDCC [facility] Last Admin: 04/11/17 11:13 Dose: 800 mg Vitamin B Complex/Vit C/Folic Acid (Nephro-Memo) 1 tab PO DAILY [facility] Last Admin: 04/11/17 10:49 Dose: 1 tab Zolpidem Tartrate (Ambien) 5 mg PO HS PRN PRN Reason: Insomnia Last Admin: 04/11/17 01:18 Dose: 5 mg - Labs Labs: 04/11/17 11:11 04/11/17 11:11 PT 13.2 SECONDS (9.7-12.2) H 04/07/17 11:30 INR 1.2 04/07/17 11:30 APTT 36 SECONDS (21-34) H 04/07/17 11:30 Assessment and Plan - Assessment and Plan (Free Text) Assessment: Patient post right IJ permacath placement, s/p left upper extremity revision and ligation of AVF and aneurysms, seen and examined. Denies acute pain, drainage tube removed from the left arm today, dressings intact. No bleeding, sob or chest pains, patient is ambulating well. Cleared by surgery for discharge. Discussed with DR Rodrigues, plan to discharge home today, continue with HD as scheduled, M/W/F. Advised to follow up with PMD in 1 week.
--- NOTE | 2017-04-11 17:15 | CP.PCM.PN ---
Subjective - Date & Time of Evaluation Date of Evaluation: 04/11/17 Time of Evaluation: 15:00 - Subjective Subjective: SEEN ON RENAL F/U FEELS IMPROVED .. AMBULATORY ALL PREVIOUS EMR REVIEWED Objective - Vital Signs/Intake and Output Vital Signs (last 24 hours): Temp Pulse Resp BP Pulse Ox 98.2 F 79 20 167/85 H 98 04/11/17 08:54 04/11/17 08:54 04/11/17 08:54 04/11/17 08:54 04/11/17 08:54 Intake and Output: 04/11/17 04/11/17 06:59 18:59 Intake Total 320 400 Balance 320 400 - Medications Medications: Current Medications Azithromycin (Zithromax) 500 mg PO DAILY [facility] Last Admin: 04/11/17 10:49 Dose: 500 mg Clonidine HCl (Catapres) 0.1 mg PO BID [facility] Last Admin: 04/11/17 10:49 Dose: 0.1 mg Docusate Sodium (Colace) 100 mg PO DAILY [facility] Last Admin: 04/11/17 10:49 Dose: 100 mg Ergocalciferol (Drisdol 50,000 Intl Units Cap) 1 cap PO Q7D [facility] Last Admin: 04/04/17 21:15 Dose: 1 cap Famotidine (Pepcid) 20 mg PO DAILY [facility] Last Admin: 04/11/17 10:49 Dose: 20 mg Hydromorphone HCl (Dilaudid) 0.5 mg IVP Q3H PRN PRN Reason: Pain, severe (8-10) Ketorolac Tromethamine (Toradol) 15 mg IVP Q6 PRN PRN Reason: Pain, Mild (1-3) Morphine Sulfate (Morphine) 2 mg IVP Q4 PRN PRN Reason: Pain, severe (8-10) Last Admin: 04/10/17 21:11 Dose: 2 mg Ondansetron HCl (Zofran Inj) 4 mg IVP Q6H PRN PRN Reason: Nausea/Vomiting Last Admin: 04/08/17 14:38 Dose: 4 mg Sevelamer Carbonate (Renvela) 800 mg PO TIDCC [facility] Last Admin: 04/11/17 11:13 Dose: 800 mg Vitamin B Complex/Vit C/Folic Acid (Nephro-Memo) 1 tab PO DAILY [facility] Last Admin: 04/11/17 10:49 Dose: 1 tab Zolpidem Tartrate (Ambien) 5 mg PO HS PRN PRN Reason: Insomnia Last Admin: 04/11/17 01:18 Dose: 5 mg - Labs Labs: 04/11/17 11:11 04/11/17 11:11 PT 13.2 SECONDS (9.7-12.2) H 04/07/17 11:30 INR 1.2 04/07/17 11:30 APTT 36 SECONDS (21-34) H 04/07/17 11:30 Assessment and Plan - Assessment and Plan (Free Text) Assessment: ESRD ON HD M W F .. TO BE C/O ANEMIA OF CKD .. H/H STABLE S/P L AVF CLOSURE .. S/P L ARM AVF CREATION S/P R TUNNELLED IJ HD CATH P : C/O CURRENT CARE
[2017-04-11 17:51] VITALS: BP 149/67; PULSE 74; TEMP 98.4
--- NOTE | 2017-04-11 21:03 | PN ---
DATE: SUBJECTIVE: The patient denies any chest pain or shortness of breath. PHYSICAL EXAMINATION: VITAL SIGNS: Blood pressure 167/85, heart rate 79, temperature 98.2, and respirations 20. HEENT: Normocephalic. NECK: No JVD. CHEST: Clear. HEART: Sounds are regular. EXTREMITIES: No edema. LABORATORY DATA: Today's hemoglobin and hematocrit 10.6 and 31.4, white count and platelet count are within normal limits. SMA-7: Sodium 136, potassium 4.8, chloride 91, CO2 of 31, glucose 107, BUN 57, creatinine 8.8. ASSESSMENT: 1. Status post right upper arm arteriovenous shunt placement. 2. End-stage renal disease, on hemodialysis for the past three years. 3. Hypertension. RECOMMENDATIONS: Continue current clonidine 0.1 mg twice a day, Colace 100 mg once a day, and Zithromax 500 mg orally once a day. No further cardiac workup is indicated at this time. The patient will continue his hemodialysis through his PermCath prior to being approved for the new right upper arm AV shunt. Renato Cobb MD
--- NOTE | 2017-04-12 22:27 | DS ---
The patient seen today, 04/11/2017. REASON FOR ADMISSION: This is a 52-year-old male with history of end-stage renal disease, on hemodialysis, admitted for malfunctioning AV fistula. Patient had a vascular surgery consult done by . Patient had removal of aneurysmally dilated malfunctioning fistula, and he had a tunneled catheter for which patient was getting hemodialysis during this admission. Patient had a new fistula placed on the right arm. Patient was discharged in a stable condition, to follow up with his primary physician as well as packing machine tender, Dr. Keene. Continue preadmission medications. [facility]
== END 2017-04-11 18:57 | disposition home or self-care (01) | DRG 252 ==
LOC: C.ER 08:54 → C.9E 14:37 → C.3T 04-01 01:37
PROVIDERS: ADMIT Internal Medicine; ATTEND Internal Medicine
PROC: 5A1D70Z Performance of Urinary Filtration, Intermittent, Less than 6 Hours Per Day (ICD-10-PCS; principal; 2017-04-01)
PROC: 5A1D70Z Performance of Urinary Filtration, Intermittent, Less than 6 Hours Per Day (ICD-10-PCS; 2017-04-03)
PROC: 03C83ZZ Extirpation of Matter from Left Brachial Artery, Percutaneous Approach (ICD-10-PCS; 2017-04-04)
PROC: 03783ZZ Dilation of Left Brachial Artery, Percutaneous Approach (ICD-10-PCS; 2017-04-04)
PROC: B51W1ZZ Fluoroscopy of Dialysis Shunt/Fistula using Low Osmolar Contrast (ICD-10-PCS; 2017-04-04)
PROC: 02HV33Z Insertion of Infusion Device into Superior Vena Cava, Percutaneous Approach (ICD-10-PCS; 2017-04-04)
PROC: 5A1D70Z Performance of Urinary Filtration, Intermittent, Less than 6 Hours Per Day (ICD-10-PCS; 2017-04-05)
PROC: 5A1D70Z Performance of Urinary Filtration, Intermittent, Less than 6 Hours Per Day (ICD-10-PCS; 2017-04-06)
PROC: 03170ZD Bypass Right Brachial Artery to Upper Arm Vein, Open Approach (ICD-10-PCS; 2017-04-08)
PROC: 5A1D70Z Performance of Urinary Filtration, Intermittent, Less than 6 Hours Per Day (ICD-10-PCS; 2017-04-08)
PROC: 5A1D70Z Performance of Urinary Filtration, Intermittent, Less than 6 Hours Per Day (ICD-10-PCS; 2017-04-10)
DX: T82.818A Embolism due to vascular prosthetic devices, implants and grafts, initial encounter (principal); N18.6 End stage renal disease; I12.0 Hypertensive chronic kidney disease with stage 5 chronic kidney disease or end stage renal disease; G47.00 Insomnia, unspecified; D63.1 Anemia in chronic kidney disease; Z99.2 Dependence on renal dialysis; Z68.23 Body mass index [BMI] 23.0-23.9, adult

== ENCOUNTER 2017-04-26 12:25 | Emergency (ER) | payer SELFPAY ==
[2017-04-26 12:27] VITALS: BMI 25.1
[2017-04-26 12:33] VITALS: BP 148/76; PULSE 63; RESP 18; TEMP 98.3; O2SAT 100
--- NOTE | 2017-04-26 12:58 | C.PDOC ---
History Of Present Illness FOR STAPLE REMOVAL S/P 04/04 left upper extremity excision and ligation of AVF and aneurysms Dr. Medeiros. ADVISED TO COME TO HOSPITAL FOR REMOVAL. NO FEVER DC REDNESS TO AREA EXAM NAD SKIN HEALING WOUND LUE, JUAN IN PLACE. NO ERYTHEMA, DC, SWELL REMAINDER NEG Time Seen by Provider: 04/26/17 12:42 Chief Complaint (Nursing): Suture/Staple Removal History Per: Patient History/Exam Limitations: no limitations Past Medical History Reviewed: Historical Data, Nursing Documentation, Vital Signs Vital Signs: Last Vital Signs Temp 98.3 F 04/26/17 12:33 Pulse 63 04/26/17 12:33 Resp 18 04/26/17 12:33 BP 148/76 04/26/17 12:33 Pulse Ox 100 04/26/17 13:37 - Medical History PMH: HTN, End Stage Renal Disease (DIALYSIS 3 X WEEK, MWF), Chronic Kidney Disease - [facility] Procedures (03/31/17) BYPASS RIGHT BRACHIAL ARTERY TO UP ARM VEIN, OPEN APPROACH (03/31/17) DILATION OF LEFT BRACHIAL ARTERY, PERCUTANEOUS APPROACH (03/31/17) EXCISION OF SIGMOID COLON, ENDO (02/19/15) EXTIRPATION OF MATTER FROM L BRACH ART, PERC APPROACH (03/31/17) FLUOROSCOPY OF DIALYSIS SHUNT/FISTULA USING L OSM CONTRAST (03/31/17) HEMODIALYSIS (06/22/12) INSERTION OF INFUSION DEV INTO SUP VENA CAVA, PERC APPROACH (03/31/17) PERFORMANCE OF URINARY FILTRATION, MULTIPLE (02/19/15) Family History: States: No Known Family Hx - Social History Hx Tobacco Use: No Hx Alcohol Use: No Hx Substance Use: No - Immunization History Hx Tetanus Toxoid Vaccination: Yes Hx Influenza Vaccination: Yes Hx Pneumococcal Vaccination: Yes Review Of Systems Neurological: Negative for: Weakness, Numbness Physical Exam - Physical Exam Appears: Non-toxic, No Acute Distress Skin: Other (HEALING WOUND LUE, JUAN IN PLACE. NO ERYTHEMA, DC, SWELL) Eye(s): bilateral: PERRL Neck: Normal ROM Extremity: No Deformity, No Swelling ED Course And Treatment O2 Sat by Pulse Oximetry: 100 (ra) Pulse Ox Interpretation: Normal Progress - Re-Evaluation Re-evaluation Note: 04/26/17 13:[address] LOUANN KEATING [facility] - Data Reviewed Data Reviewed: Old records Disposition Counseled Patient/Family Regarding: Diagnosis, Need For Followup - Disposition Referrals: YOUR,PMD [Other] Disposition: HOME/ ROUTINE Disposition Time: 13:36 Condition: IMPROVED Instructions: Staple Removal Forms: [facility] (Vietnamese) Print Language: ALBANIAN - Clinical Impression Clinical Impression: Removal of suture - Scribe Statement The provider has reviewed the documentation as recorded by the Scribe (Carter Grossman) All medical record entries made by the Scribe were at my direction and personally dictated by me. I have reviewed the chart and agree that the record accurately reflects my personal performance of the history, physical exam, medical decision making, and the department course for this patient. I have also personally directed, reviewed, and agree with the discharge instructions and disposition.
== END 2017-04-26 13:39 | disposition home or self-care (01) ==
LOC: C.ER 12:25
DX: Z48.02 Encounter for removal of sutures (principal)

== ENCOUNTER 2017-05-31 15:04 | Emergency (ER) | payer OTHER ==
[2017-05-31 15:04] VITALS: BMI 25.1
[2017-05-31 15:32] VITALS: BP 148/88; PULSE 64; RESP 17; TEMP 98.5; O2SAT 100
--- NOTE | 2017-05-31 15:50 | C.PDOC ---
History Of Present Illness 52 year old male with PMHx of ESRD presents to the ED stating he wants to speak with his surgeon for authorization of dialysis on the fistula on his right arm. Patient reports he had a fistula placed in his right arm by Dr. Medeiros, but in his dialysis center they want to start using the fistula in his right arm but need authorization from him. Patient reports he tried calling the office of his surgeon but was not able to get a hold on them, so patient came to the ED to find him. Patient denies any physical complaints. Dr. Medeiros. Time Seen by Provider: 05/31/17 15:43 Chief Complaint (Nursing): Medical Clearance History Per: Patient History/Exam Limitations: no limitations Onset/Duration Of Symptoms: Days Current Symptoms Are (Timing): Gone Severity: None Recent travel outside of the [place]: No Additional History Per: Patient Past Medical History Reviewed: Historical Data, Nursing Documentation, Vital Signs Vital Signs: Last Vital Signs Temp 98.5 F 05/31/17 15:10 Pulse 64 05/31/17 15:10 Resp 17 05/31/17 15:10 BP 148/88 05/31/17 15:10 Pulse Ox 100 05/31/17 15:50 - Medical History PMH: HTN, End Stage Renal Disease (DIALYSIS 3 X WEEK, MWF), Chronic Kidney Disease Surgical History: No Surg Hx - [facility] Procedures (03/31/17) BYPASS RIGHT BRACHIAL ARTERY TO UP ARM VEIN, OPEN APPROACH (03/31/17) DILATION OF LEFT BRACHIAL ARTERY, PERCUTANEOUS APPROACH (03/31/17) EXCISION OF SIGMOID COLON, ENDO (02/19/15) EXTIRPATION OF MATTER FROM L BRACH ART, PERC APPROACH (03/31/17) FLUOROSCOPY OF DIALYSIS SHUNT/FISTULA USING L OSM CONTRAST (03/31/17) HEMODIALYSIS (06/22/12) INSERTION OF INFUSION DEV INTO SUP VENA CAVA, PERC APPROACH (03/31/17) PERFORMANCE OF URINARY FILTRATION, MULTIPLE (02/19/15) Family History: States: Unknown Family Hx - Social History Hx Tobacco Use: No Hx Alcohol Use: No Hx Substance Use: No - Immunization History Hx Tetanus Toxoid Vaccination: Yes Hx Influenza Vaccination: Yes Hx Pneumococcal Vaccination: Yes Review Of Systems Constitutional: Negative for: Fever, Chills Cardiovascular: Negative for: Chest Pain Respiratory: Negative for: Shortness of Breath Gastrointestinal: Negative for: Abdominal Pain Skin: Negative for: Rash Neurological: Negative for: Weakness, Numbness Physical Exam - Physical Exam Appears: Non-toxic, No Acute Distress Skin: Normal Color, Warm, Dry Head: Atraumatic, Normacephalic Eye(s): bilateral: Normal Inspection Nose: No Discharge Oral Mucosa: Moist Throat: Normal, No Erythema, No Exudate Neck: Normal ROM, Supple Chest: Symmetrical, Other (porth on right siderd chest) Cardiovascular: Rhythm Regular, No Murmur Respiratory: Normal Breath Sounds Extremity: Normal ROM, No Tenderness, Capillary Refill (< 2 seconds), No Swelling, Other (left arm scar on bicep, right arm fistula seen ) Pulses: Left Radial: Normal, Right Radial: Normal Neurological/Psych: Oriented x3, Normal Motor, Normal Sensation Gait: Steady ED Course And Treatment O2 Sat by Pulse Oximetry: 100 (On RA) Pulse Ox Interpretation: Normal Disposition Counseled Patient/Family Regarding: Diagnosis, Need For Followup - Disposition Referrals: Dany Medeiros MD [Medical Doctor] - Disposition: HOME/ ROUTINE Disposition Time: 15:50 Condition: GOOD Instructions: Arteriovenous Fistula for Dialysis (DC) Forms: [facility] (Jordanian), Gen Discharge Inst Croatian Print Language: YORUBA - Clinical Impression Clinical Impression: Medical assessment - Scribe Statement The provider has reviewed the documentation as recorded by the Scribe Nitesh Barber All medical record entries made by the Scribe were at my direction and personally dictated by me. I have reviewed the chart and agree that the record accurately reflects my personal performance of the history, physical exam, medical decision making, and the department course for this patient. I have also personally directed, reviewed, and agree with the discharge instructions and disposition.
== END 2017-05-31 15:50 | disposition home or self-care (01) ==
LOC: C.ER 15:04
DX: Z00.00 Encounter for general adult medical examination without abnormal findings (principal)

== ENCOUNTER 2017-09-02 23:35 | Emergency (ER) | payer OTHER ==
[2017-09-02 23:35] VITALS: BMI 25.1
[2017-09-02] MEDS ORDERED: Oxycodone/Acetaminophen 5/325 mg Tab PO STA (23:59)
[2017-09-02] MEDS ORDERED: Bacitracin 500 Units/gm Oint Foilpak UD TOP ONE (23:59)
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
[2017-09-03] MEDS ORDERED: Oxycodone/Acetaminophen 5/325 mg Tab ONE (00:08)
[2017-09-03] MEDS ORDERED: Bacitracin 500 Units/gm Oint Foilpak UD ONE (00:09)
[2017-09-03] MEDS ORDERED: Tdap Vaccine 0.5 ml Vial (10-64 yrs) IM ONE ×2 (00:09)
[2017-09-03 01:53] VITALS: BP 138/72; PULSE 68; RESP 16; TEMP 99
[2017-09-03 02:09] VITALS: O2SAT 98
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
--- NOTE | 2017-09-03 08:28 | RAD ---
Date of service: 09/03/2017 PROCEDURE: Left Knee Radiographs. HISTORY: Pain. COMPARISON: None. FINDINGS: BONES: Multiple ossific densities and cortical irregularities along the superior patellar aspect are noted. No fracture. JOINTS: Possible patellar femoral osteoarthritis. Trace medial femoral tibial joint space narrowing compatible with minimal early degenerative change here. The lateral view is not true lateral impeding optimal evaluation here. Consider repeat PA lateral. No fracture appreciated. JOINT EFFUSION: None. OTHER FINDINGS: Atherosclerotic vascular calcifications present. . IMPRESSION: No fracture appreciated. Probably chronic superior patellar cortical appearance no suspect significant joint effusion here noted. Possible patellofemoral arthrosis. Trace medial femoral tibial joint arthrosis Atherosclerotic vascular calcifications present. .
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
== END 2017-09-03 02:00 | disposition home or self-care (01) ==
LOC: C.ER 23:35
DX: S00.01XA Abrasion of scalp, initial encounter (principal); S50.312A Abrasion of left elbow, initial encounter; S40.012A Contusion of left shoulder, initial encounter; S80.02XA Contusion of left knee, initial encounter; S52.022A Displaced fracture of olecranon process without intraarticular extension of left ulna, initial encounter for closed fracture; V19.49XA Pedal cycle driver injured in collision with other motor vehicles in traffic accident, initial encounter; Y92.410 Unspecified street and highway as the place of occurrence of the external cause

== ENCOUNTER 2017-09-17 09:40 | Emergency (ER) | payer OTHER ==
[2017-09-17 09:40] VITALS: BMI 25.1
--- NOTE | 2017-09-17 10:38 | C.PDOC ---
History Of Present Illness 52yo male, comes to ER with complaints of worsening epigastric pain x 1 week. Patient states the pain is intermittent and lasts approximately 15 minutes at a time. He states the pain is non-exertional and at present, patient reports he is asymptomatic. He reports a history of "fluid around heart" which he was diagnosed with "decades" ago.Patient reports he was last evaluated on 09/02 after a fall but his current pain preceded that event. He denies any vomiting, diarrhea, fever, chills, UTI symtpoms, and offers no additional medical complaints. Time Seen by Provider: 09/17/17 10:24 Chief Complaint (Nursing): Chest Pain History Per: Patient History/Exam Limitations: no limitations Onset/Duration Of Symptoms: Intermittent Episodes, Persistent Current Symptoms Are (Timing): Still Present Quality: "Pain" Associated Symptoms: denies: Nausea, Dyspnea, Diaphoresis, Syncope Additional History Per: Patient Past Medical History Reviewed: Historical Data, Nursing Documentation, Vital Signs Vital Signs: Last Vital Signs Temp 98 F 09/17/17 13:42 Pulse 56 L 09/17/17 13:42 Resp 18 09/17/17 13:42 BP 136/72 09/17/17 13:42 Pulse Ox 98 09/17/17 13:42 - Medical History PMH: HTN, End Stage Renal Disease (DIALYSIS 3 X WEEK, MWF), Chronic Kidney Disease Surgical History: No Surg Hx - [facility] Procedures (03/31/17) BYPASS RIGHT BRACHIAL ARTERY TO UP ARM VEIN, OPEN APPROACH (03/31/17) DILATION OF LEFT BRACHIAL ARTERY, PERCUTANEOUS APPROACH (03/31/17) EXCISION OF SIGMOID COLON, ENDO (02/19/15) EXTIRPATION OF MATTER FROM L BRACH ART, PERC APPROACH (03/31/17) FLUOROSCOPY OF DIALYSIS SHUNT/FISTULA USING L OSM CONTRAST (03/31/17) HEMODIALYSIS (06/22/12) INSERTION OF INFUSION DEV INTO SUP VENA CAVA, PERC APPROACH (03/31/17) PERFORMANCE OF URINARY FILTRATION, MULTIPLE (02/19/15) Family History: States: No Known Family Hx, Unknown Family Hx - Social History Hx Tobacco Use: No Hx Alcohol Use: No Hx Substance Use: No - Immunization History Hx Tetanus Toxoid Vaccination: Yes Hx Influenza Vaccination: Yes Hx Pneumococcal Vaccination: Yes Review Of Systems Except As Marked, All Systems Reviewed And Found Negative. Constitutional: Negative for: Fever, Chills Cardiovascular: Negative for: Chest Pain Respiratory: Negative for: Shortness of Breath Gastrointestinal: Positive for: Abdominal Pain. Negative for: Nausea, Vomiting , Diarrhea Genitourinary: Negative for: Dysuria, Frequency, Hematuria Physical Exam - Physical Exam Appears: Non-toxic, No Acute Distress Skin: Warm, Dry Head: Atraumatic, Normacephalic Eye(s): bilateral: Normal Inspection Neck: Normal ROM, Supple Chest: Symmetrical, Ecchymosis (old ecchymosis noted to left chest wall) Cardiovascular: Rhythm Regular, No Murmur Respiratory: Normal Breath Sounds, No Rales, No Rhonchi, No Wheezing Gastrointestinal/Abdominal: Normal Exam, Soft, No Tenderness, No Guarding, No Rebound Back: Normal Inspection, No CVA Tenderness, No Vertebral Tenderness Extremity: Normal ROM, No Pedal Edema, No Deformity Neurological/Psych: Oriented x3, Normal Speech, Normal Cognition, Normal Motor, Normal Sensation ED Course And Treatment - Laboratory Results Result Diagrams: 09/17/17 11:28 09/17/17 11:28 ECG: Interpreted By Me, Viewed By Me ECG Rhythm: Sinus Rhythm, 1st Degree HB Rate From EC - Radiology CXR: Interpreted by Me CXR Interpretation: Yes: No Acute Disease Reevaluation Time: 13:46 Reassessment Condition: Unchanged (NO RECUR CP SINCE INITIAL EVAL) Medical Decision Making Medical Decision Making: Plan: -- Labs -- EKG -- CXR Disposition Counseled Patient/Family Regarding: Studies Performed, Diagnosis, Need For Followup - Disposition Referrals: YOUR,PMD [Other] Disposition: HOME/ ROUTINE Disposition Time: 13:46 Condition: GOOD Instructions: Chest Pain (DC) Forms: [employer] (Malaysian) Print Language: MACANESE - Clinical Impression Clinical Impression: ESRD (end stage renal disease) on dialysis, Chest discomfort - Scribe Statement The provider has reviewed the documentation as recorded by the Jeremy Joy Provider Attestation: All medical record entries made by the Jeremy were at my direction and personally dictated by me. I have reviewed the chart and agree that the record accurately reflects my personal performance of the history, physical exam, medical decision making, and the department course for this patient. I have also personally directed, reviewed, and agree with the discharge instructions and disposition.
[2017-09-17 11:32] VITALS: RESP 18; TEMP 98; O2SAT 98
[2017-09-17 11:32] LABS: BASO # 0.1 K/uL (0.0-0.2); BASO % 1.3 % (0.0-2.0); EOS # 0.4 K/uL (0.0-0.7); EOS % 5.8 % (0.0-4.0); LYMPH # 0.9 K/uL (1.0-4.3); LYMPH % 14.4 % (20.0-40.0); MEAN CELL VOLUME 94.1 fL (80.0-94.0); MEAN CORPUSCULAR HEMOGLOBIN 32.1 pg (27.0-31.0); MEAN CORPUSCULAR HGB CONC 34.2 g/dL (33.0-37.0); MEAN PLATELET VOLUME 9.2 fL (7.2-11.7); MONO # 0.6 K/uL (0.0-0.8); MONO % 9.7 % (0.0-10.0); NEUT # 4.1 K/uL (1.8-7.0); NEUT % 68.8 % (50.0-75.0); RBC 4.05 Mil/uL (4.40-5.90); RED CELL DISTRIBUTION WIDTH 14.3 % (11.5-14.5)
[2017-09-17 12:01] LABS: TROPONIN I 0.047 ng/mL (0.00-0.120)
[2017-09-17 12:02] LABS: ALB/GLOB RATIO 1.2 (1.0-2.1); ALBUMIN 3.9 g/dL (3.5-5.0); CALCIUM 9.2 mg/dl (8.6-10.4)
--- NOTE | 2017-09-17 13:06 | RAD ---
Date of service: 09/17/2017 HISTORY: chest pain COMPARISON: Chest radiographs 04/07/2017. TECHNIQUE: Chest PA and lateral FINDINGS: LUNGS: No acute alveolitis bilaterally. Chronic interstitial pulmonary changes are reiterated. PLEURA: No significant pleural effusion identified. No pneumothorax apparent. CARDIOVASCULAR: Cardiomegaly and permanent right center venous dialysis catheter appear stable. OSSEOUS STRUCTURES: No significant abnormalities. VISUALIZED UPPER ABDOMEN: Normal. OTHER FINDINGS: None. IMPRESSION: Chronic interstitial pulmonary changes are stable as well as cardiomegaly and right center venous dialysis catheter.
[2017-09-17 13:43] VITALS: BP 136/72; PULSE 56
--- NOTE | 2017-09-17 15:21 | CARD ---
APPROVED REPORT Date of service: 09/17/2017 EKG Measurement Heart [id number] <Conclusion> Sinus rhythm with 1st degree AV block Left axis deviation Minimal voltage criteria for LVH, may be normal variant Lateral infarct, age undetermined Abnormal ECG
== END 2017-09-17 13:51 | disposition home or self-care (01) ==
LOC: C.ER 09:40
DX: I12.0 Hypertensive chronic kidney disease with stage 5 chronic kidney disease or end stage renal disease (principal); N18.6 End stage renal disease; Z99.2 Dependence on renal dialysis; R07.9 Chest pain, unspecified

== ENCOUNTER 2017-12-10 08:57 | Day surgery (SDC) | payer OTHER ==
[2017-12-10 10:31] LABS: CALCIUM 10.1 mg/dl (8.6-10.4)
[2017-12-10] MEDS ORDERED: HEPARIN-NS 5,000 UNITS/500 ML 5,000 UNIT/500 ML BAG IV ONE (10:49)
[2017-12-10] MEDS ORDERED: ceFAZolin 1 gm FROZEN Premix 2 GM/100 ML ML IVPB ONE (10:49)
[2017-12-10] MEDS ORDERED: Propofol 10 mg/ml Inj (20 ML) ONE ×2 (11:48→12:48)
[2017-12-10] MEDS ORDERED: Midazolam 2 MG/2 ML VIAL ONE (11:49)
[2017-12-10] MEDS ORDERED: Oxycodone/Acetaminophen 5/325 mg Tab PO PRN (14:21)
--- NOTE | 2017-12-10 14:21 | PCM.SURG1 ---
Surgeon's Initial Post Op Note - Surgeon's Notes Surgeon: keon Screw Machine Repairer: 0 Type of Anesthesia: General LMA Anesthesia Administered By: gladis Pre-Operative Diagnosis: renal failure Operative Findings: no veins for fistula on ultrasound exam Post-Operative Diagnosis: same Operation Performed: av shunt right arm Specimen/Specimens Removed: o Estimated Blood Loss: EBL {In ML}: 50 Blood Products Given: N/A Drains Used: No Drains Post-Op Condition: Good Date of Surgery/Procedure: 12/10/17 Time of Surgery/Procedure: 14:21
[2017-12-10] MEDS: HYDROmorphone 0.5 mg/0.5 ml ISec IVP PRN ×2 (14:41→14:45)
[2017-12-10] MEDS ORDERED: Sodium Chloride 0.9% 1,000 ML IV ONE (17:15)
[2017-12-10 22:02] VITALS: BP 138/76; PULSE 76; RESP 15; TEMP 98.2; O2SAT 99
--- NOTE | 2017-12-11 01:22 | OP ---
PROCEDURE DATE: 12/10/2017 PREOPERATIVE DIAGNOSIS: Renal failure. POSTOPERATIVE DIAGNOSIS: Renal failure. PROCEDURE CARRIED OUT: Placement of Bovine AV graft/shunt, left upper extremity brachial. SURGEON: Mino Yates Jr., MD ASSISTANTS: None. ANESTHESIOLOGIST: Lucinda Winslow CRNA INDICATIONS: The patient is a middle-aged man, previous transplant, previous failed access in both arms, who presents with the need for permanent access. OPERATIVE FINDINGS: Preoperative vein mapping suggested that there is a fairly good cephalic vein on the right side, but this is thrombosed. Accordingly, we then placed a 6 mm Bovine graft between the brachial artery and the brachial vein in the axilla in loop configuration. DESCRIPTION OF PROCEDURE: The patient was given general anesthesia and intravenous antibiotics. Venodyne boots were applied. The artery was dissected at the elbow. The vein was dissected towards the axilla. After we have done this, we created a subcutaneous tunnel. We gave heparin. We isolated the vessels, and then, we deployed the graft. Placing the venous anastomosis first, and then anastomosis through fashion. At the end of procedure, there was still weakly palpable pulses in wrist and good Doppler signals. Blood loss for the procedure 50 mL. Heparin was given and was then reversed. The operation was carried out. There was placement of AV graft (Bovine graft right upper extremity). Mino Yates Jr., MD cc: Pasha Keene MD
== END 2017-12-10 20:00 | disposition home or self-care (01) ==
LOC: C.SDS 08:57
PROVIDERS: ATTEND Surgery Vascular Surgery
DX: N18.6 End stage renal disease (principal); N19 Unspecified kidney failure
CPT/HCPCS: 36415; 36821; 80048; 82948; J0690; J1170; J1644; J2250; J2405; J2704; J3010; J7030

== ENCOUNTER 2017-12-30 10:53 | Emergency (ER) | payer OTHER ==
[2017-12-30 10:53] VITALS: BMI 25.1
[2017-12-30 11:07] VITALS: RESP 18; TEMP 98.5; O2SAT 100
--- NOTE | 2017-12-30 11:42 | C.PDOC ---
History Of Present Illness 52 y/o male presents to ED for wound check and staple removal. Patient states that he had surgery with Dr Yates on 12/10. Patient states that he tried calling doctors office with no answer.Denies having fever, chills, wound discharge and redness. Time Seen by Provider: 12/30/17 11:25 Chief Complaint (Nursing): Vascular Access Device Problem History Per: Patient History/Exam Limitations: no limitations Past Medical History Reviewed: Historical Data, Nursing Documentation, Vital Signs Vital Signs: Last Vital Signs Temp 98.5 F 12/30/17 11:04 Pulse 69 12/30/17 11:04 Resp 18 12/30/17 11:04 BP 132/69 12/30/17 11:04 Pulse Ox 100 12/30/17 11:04 - Medical History PMH: HTN, End Stage Renal Disease (DIALYSIS 3 X WEEK, MWF), Chronic Kidney Disease Other Surgeries: Hx of surgeries - [facility] Procedures (03/31/17) BYPASS RIGHT BRACHIAL ARTERY TO UP ARM VEIN, OPEN APPROACH (03/31/17) DILATION OF LEFT BRACHIAL ARTERY, PERCUTANEOUS APPROACH (03/31/17) EXCISION OF SIGMOID COLON, ENDO (02/19/15) EXTIRPATION OF MATTER FROM L BRACH ART, PERC APPROACH (03/31/17) FLUOROSCOPY OF DIALYSIS SHUNT/FISTULA USING L OSM CONTRAST (03/31/17) HEMODIALYSIS (06/22/12) INSERTION OF INFUSION DEV INTO SUP VENA CAVA, PERC APPROACH (03/31/17) PERFORMANCE OF URINARY FILTRATION, MULTIPLE (02/19/15) Family History: States: No Known Family Hx - Social History Hx Tobacco Use: No Hx Alcohol Use: No Hx Substance Use: No - Immunization History Hx Tetanus Toxoid Vaccination: Yes Hx Influenza Vaccination: Yes Hx Pneumococcal Vaccination: Yes Review Of Systems Except As Marked, All Systems Reviewed And Found Negative. Constitutional: Negative for: Fever, Chills Physical Exam - Physical Exam Appears: Non-toxic, No Acute Distress Skin: Normal Color, Warm, Dry, Other (8 sean intact upper wound and 7 sean intact lower wound of right arm upper arm, no cellulitis or discharge) Head: Atraumatic, Normacephalic Eye(s): bilateral: Normal Inspection Nose: Normal Oral Mucosa: Moist Neck: Supple Chest: Symmetrical Cardiovascular: Rhythm Regular Respiratory: Normal Breath Sounds, No Rales, No Rhonchi, No Wheezing Neurological/Psych: Oriented x3, Normal Speech ED Course And Treatment O2 Sat by Pulse Oximetry: 100 (RA) Pulse Ox Interpretation: Normal Medical Decision Making Medical Decision Making: Contact Dr Yates who is in OR and not available. Contact orthodontist vice president for removal of sean. Sean removed without difficulty. Patient instructed to follow up in office tomorrow Saturday12/31/17 Disposition Counseled Patient/Family Regarding: Diagnosis, Need For Followup - Disposition Referrals: Mino Yates Jr., MD [Staff Provider] - Disposition: HOME/ ROUTINE Disposition Time: 12:58 Condition: GOOD Instructions: Staple Removal Print Language: PORTUGUESE - POA Present On Arrival: None - Clinical Impression Clinical Impression: Removal of sean - PA / QA TEST LEAD / Resident Statement MD/DO has reviewed & agrees with the documentation as recorded. - Scribe Statement The provider has reviewed the documentation as recorded by the Juwanibe Alka Olson Provider Attestation All medical record entries made by the Scribe were at my direction and personally dictated by me. I have reviewed the chart and agree that the record accurately reflects my personal performance of the history, physical exam, medical decision making, and the department course for this patient. I have also personally directed, reviewed, and agree with the discharge instructions and disposition.
[2017-12-31 00:16] VITALS: BP 183/84; PULSE 59
== END 2017-12-30 13:08 | disposition home or self-care (01) ==
LOC: C.ER 10:53
DX: Z48.02 Encounter for removal of sutures (principal)

== ENCOUNTER 2018-03-04 09:00 | Day surgery (SDC) | payer OTHER ==
[2018-03-04] MEDS ORDERED: ceFAZolin 1 gm in NS 2 GM/200 ML BAG IVPB ONE (10:13)
[2018-03-04] MEDS ORDERED: Iohexol 240 200 ML ONE (10:14)
[2018-03-04] MEDS ORDERED: HEPARIN-NS 5,000 UNITS/500 ML 5,000 UNIT/500 ML BAG IV ONE (10:14)
[2018-03-04 10:20] LABS: CALCIUM 8.2 mg/dl (8.6-10.4)
[2018-03-04] MEDS ORDERED: Propofol 10 mg/ml Inj (20 ML) ONE (11:10)
[2018-03-04] MEDS ORDERED: Midazolam 2 MG/2 ML VIAL ONE (11:10)
[2018-03-04] MEDS ORDERED: Lidocaine Hydrochloride 5 ML INJ ONE (11:30)
[2018-03-04] MEDS ORDERED: ePHEDrine 50 mg/ml Inj ONE (11:44)
[2018-03-04] MEDS ORDERED: Sodium Chloride 0.9% 1,000 ML IV SCH (12:45)
[2018-03-04] MEDS ORDERED: HYDROmorphone 0.5 mg/0.5 ml ISec IVP PRN (12:45)
--- NOTE | 2018-03-04 12:49 | PCM.SURG1 ---
Surgeon's Initial Post Op Note - Surgeon's Notes Surgeon: Dr. aYtes Desktop Support Engineer: Dr. San PGY-3, Francisco Pathak MS3 Type of Anesthesia: General LMA Pre-Operative Diagnosis: R arm steal syndrome s/p AVF Operative Findings: See operative report Post-Operative Diagnosis: Same Operation Performed: R arm fistulagram & revision of AVF Specimen/Specimens Removed: none Estimated Blood Loss: EBL {In ML}: 10 Blood Products Given: N/A Drains Used: No Drains Post-Op Condition: Good Date of Surgery/Procedure: 03/04/18 Time of Surgery/Procedure: 12:48
[2018-03-04 15:18] VITALS: BP 135/70; PULSE 79; RESP 19; TEMP 97; O2SAT 100
--- NOTE | 2018-03-04 19:09 | OP ---
PROCEDURE DATE: 03/04/2018 PREOPERATIVE DIAGNOSIS: Renal failure. POSTOPERATIVE DIAGNOSES: Renal failure and steal syndrome, right hand. PROCEDURE CARRIED OUT: Fistulogram right arm and revision with narrowing by means of a hemoclip adjacent to the arterial anastomosis. SURGEON: Mino Yates Jr., MD SHOT PEEN OPERATOR: Gabrielle San DO. ANESTHESIOLOGIST: Corinne Duong MD ANESTHESIA: LMA. INDICATIONS: A 52-year-old male with renal insufficiency, multiple access failures in the past. Presently dialyzing with bovine graft, has developed steal syndrome in the hand. OPERATIVE FINDINGS: The initial fistulogram showed that there was perhaps a 40 to 50% stenosis at the venous anastomosis. Initially also there was no evidence of arterial stenosis, the malave arch was open and all three vessels were seen in the forearm. At the initiation of the procedure there was barely precipitable pulse volume recording and pulse oximetry tracing in the finger tips and these were markedly improved at the end of the procedure. We did not address the stenosis at the venous anastomosis given the circumstances of hypertrophic fistula shunt and instead placed a medium sized clip adjacent to the arterial anastomosis. This resulted in improvement in the pulse oximetry tracing in the finger and improvement in the Doppler signals and we terminated this procedure and did not carry out a DRL procedure. We then closed the area where the graft had been exposed and closed this with subcuticular closure and Steri-Strips. BLOOD LOSS: 5 mL. OPERATION CARRIED OUT: Fistulogram right arm and revision with narrowing by means of a hemoclip adjacent to the arterial anastomosis. It should be stated that prior to the operation there was an extensive review with the patient that we are going to do a temporizing measure and taking out these angiograms first and also clipping the arterial anastomosis and if this did not adequately relieve symptoms, then the DRL procedure would be carried out at a future date. This is explained with a customer service representative teacher. Mino Yates Jr., MD CC: Dr. Johnson Keene MD, pipe fitter maintenance
--- NOTE | 2018-03-05 17:14 | RAD ---
Date of service: 03/04/2018 PROCEDURE: Intraoperative fluoroscopy HISTORY: ESRD COMPARISON: Not available TECHNIQUE: Intraoperative fluoroscopy was provided for evaluation of right arm fistula. Total time of fluoroscopy was 59.5 sec. Cumulative dose was 2.80 mGy FINDINGS: Multiple fluoroscopic spot films are submitted. Films are on file for review. IMPRESSION: Fluoroscopy provided.
== END 2018-03-04 19:25 | disposition home or self-care (01) ==
LOC: C.SDS 09:00
PROVIDERS: ATTEND Surgery Vascular Surgery
DX: T82.898A Other specified complication of vascular prosthetic devices, implants and grafts, initial encounter (principal); I12.0 Hypertensive chronic kidney disease with stage 5 chronic kidney disease or end stage renal disease; N18.6 End stage renal disease; E78.5 Hyperlipidemia, unspecified; E11.22 Type 2 diabetes mellitus with diabetic chronic kidney disease; Z99.2 Dependence on renal dialysis
CPT/HCPCS: 36415; 36832; 76000; 80048; J0690; J1170; J2250; J2704; J3010; J7030; J7040

== ENCOUNTER 2018-03-18 09:14 | Inpatient (IN) | payer MEDICAID, OTHER ==
[2018-03-18] MEDS ORDERED: ceFAZolin 1 gm in NS 0 GM/0 ML BAG IVPB ONE (11:54)
[2018-03-18] MEDS ORDERED: HEPARIN-NS 5,000 UNITS/500 ML 0 UNIT/0 ML BAG IV ONE (11:54)
[2018-03-18] MEDS ORDERED: Propofol 10 mg/ml Inj (20 ML) ONE (11:58)
[2018-03-18] MEDS ORDERED: Midazolam 2 MG/2 ML VIAL ONE (11:59)
--- NOTE | 2018-03-18 13:44 | CP.PCM.HP ---
<Raffy Saucedo - Last Filed: 03/18/18 16:55> History of Present Illness - History of Present Illness History of Present Illness: cc: "they told me my potassium was too high" 52M PMHx of ESRD, HTn and Subclavian Steal Syndrome presents in same day surgery before a vascular procedure with Dr Yates. Pt was to go today but was admitted because of hyperkalemia, procedure delayed until this resolves. Pt only complain it numbness and pale color of his right hand since 3 months ago. Pt believes it has to do with his fistula. Pt denies any pain or swelling in the area. Pt also complains of numbness in both toes. Pt says he has been on dialysis for 18 years and follows up with Dr Keene, his HD days are MWF. ROS: pos+ numbness in feet and R hand, pale R hand neg-swelling in extremities, hematuria, palpitations, chest pain, SOB, fevers, Chills, fatigue, weakness, medication noncompliance/changes, PMHx: ESRD, HTN, pulmonary edema, pericardial effusion, Subclavian Steal synd vel NKDA PSHx: renal transplant, knee surgery, R lung cystectomy, dialysis access, pericardial window, colonoscopy SHx: denies tobacco use, social EtOH use, denies drug use FHx: noncontributory Home Rx: Fosrenol 1000mg PO TIDAC Renvela 800mg PO TIDCC Sensipar 90mg PO QPM Ibuprofen 600mh PO q8 prn Famotidine 40mg PO qd Clonidine 0.2mg PO BID Present on Admission - Present on Admission Any Indicators Present on Admission: No Review of Systems - Constitutional Constitutional: absent: Chills, Fever, Malaise, Night Sweats, Weight Loss - EENT Eyes: absent: Change in Vision Nose/Mouth/Throat: absent: Neck Pain - Cardiovascular Cardiovascular: absent: Chest Pain, Diaphoresis, Pain Radiating to Arm/Neck/Jaw, Palpitations - Respiratory Respiratory: absent: Cough, Dyspnea, Wheezing, Chest Congestion - Genitourinary Genitourinary: absent: Hematuria - Musculoskeletal Musculoskeletal: absent: Muscle Weakness - Neurological Neurological: Numbness (gricelda feet and R hand) - Psychiatric Psychiatric: absent: Depression Past Patient History - Infectious Disease Hx of Infectious Diseases: None - Past Medical History & Family History Past Medical History?: Yes - Past Social History Smoking Status: Never Smoked - CARDIAC Hx Cardiac Disorders: Yes Hx Hypertension: Yes - PULMONARY Hx Respiratory Disorders: Yes Hx Pulmonary Edema: Yes - NEUROLOGICAL Hx Neurological Disorder: No - HEENT Hx HEENT Problems: No - RENAL Hx Chronic Kidney Disease: Yes Type of Dialysis Access: A-V Shunt R/A Date of Last Dialysis Treatment: 03/17/18 Hx Renal Failure: Yes - ENDOCRINE/METABOLIC Hx Endocrine Disorders: No - HEMATOLOGICAL/ONCOLOGICAL Hx Blood Disorders: No - INTEGUMENTARY Hx Dermatological Problems: No - MUSCULOSKELETAL/RHEUMATOLOGICAL Hx Musculoskeletal Disorders: No Hx Falls: No - GASTROINTESTINAL Hx Gastrointestinal Disorders: No - GENITOURINARY/GYNECOLOGICAL Hx Genitourinary Disorders: No - PSYCHIATRIC Hx Psychophysiologic Disorder: No Hx Substance Use: No - SURGICAL HISTORY Hx Surgeries: Yes Hx Kidney Transplant: Yes Hx Orthopedic Surgery: Yes (Knee) Hx Vascular Access Device: Yes (2013. left av fistula nonfunctioning/ RIGHT ARM(12/10/17)) Other/Comment: lung surgery, AV fistula 2000, Knee surgery. heart surgery- too much fluid around heart - ANESTHESIA Hx Anesthesia: Yes Hx Anesthesia Reactions: No Hx Malignant Hyperthermia: No Meds Allergies/Adverse Reactions: Allergies Allergy/AdvReac Type Severity Reaction Status Date / Time No Known Allergies Allergy Verified 09/17/17 09:46 Physical Exam - Constitutional Appears: Well, Non-toxic, No Acute Distress - Head Exam Head Exam: ATRAUMATIC, NORMAL INSPECTION - Eye Exam Eye Exam: EOMI, Normal appearance Pupil Exam: NORMAL ACCOMODATION - ENT Exam ENT Exam: Mucous Membranes Moist - Neck Exam Neck exam: Positive for: Normal Inspection. Negative for: Tenderness Additional comments: no carotid bruit heard on ausc - Respiratory Exam Respiratory Exam: Clear to Auscultation Bilateral - Cardiovascular Exam Cardiovascular Exam: RRR, +S1, +S2 - Neurological Exam Neurological exam: Alert, CN II-XII Intact, Oriented x3, Reflexes Normal Additional comments: sensory deficits in bilateral feet and R hand, 2 point discrimination intact, positive cheli's R hand - Psychiatric Exam Psychiatric exam: Normal Affect, Normal Mood Results - Vital Signs Recent Vital Signs: Last Vital Signs Temp 96 F L 03/18/18 09:25 Pulse 54 L 03/18/18 09:25 Resp 20 03/18/18 09:25 BP 117/68 02/05/19 09:25 Pulse Ox 98 03/18/18 09:25 - Labs Result Diagrams: 03/18/18 11:48 Labs: Laboratory Results - last 24 hr 03/18/18 03/18/18 10:03 11:48 Sodium 139 138 Potassium 5.9 H 6.0 H Chloride 96 L 95 L Carbon Dioxide 32 H 34 H Anion Gap 17 15 BUN 38 H 37 H Creatinine 6.8 H 7.1 H Est GFR ( Amer) 10 10 Est GFR (Non-Af Amer) 9 8 Random Glucose 75 75 Calcium 8.0 L 8.0 L Assessment & Plan - Assessment and Plan (Free Text) Assessment: 52M admitted for hyperkalemia and optimization for surgery Hyperkalemia 6.0 pre op Renal Diet HD today ESRD Dr Keene Nephro consulted f/u recs HD MWF 18yr hx mature fistula w/ palpable thrill Renal Diet Monitor I&Os f/u am BMP Renvela 800mg PO TIDCC Sensipar 90mg PO QPM Famotidine 40mg PO qd Clonidine 0.2mg PO BID R arm arterial Steal Syndrome Dr Yates VascSx consulted DRIL procedure tmrw, NPO past midnight PPx: Pepcid 40mg PO QD Renal Diet NPO past midnight <Arturo Storey - Last Filed: 03/24/18 17:27> Results - Vital Signs Recent Vital Signs: Last Vital Signs Temp 98.0 F 03/21/18 17:47 Pulse 63 03/21/18 17:47 Resp 20 03/21/18 17:47 BP 157/78 H 03/21/18 17:47 Pulse Ox 99 03/21/18 17:47 - Labs Result Diagrams: 03/20/18 07:19 03/20/18 07:19 Attending/Attestation - Attestation I have personally seen and examined this patient.: Yes I have fully participated in the care of the patient.: Yes I have reviewed all pertinent clinical information: Yes Notes (Text): Hyperkalemia esrd on hd
--- NOTE | 2018-03-18 17:49 | CP.PCM.CON ---
History of Present Illness - History of Present Illness History of Present Illness: CASE D/W DR BLUE CASE D/W MED RESIDENT CASE D/W HD RN AND ORDERS GIVEN TO HER FOR K OF 6.0 PT HAD HD YESTERDAY AND PRIOR LABES FROM YESTERDAY SHOWED K LEVEL OF 5.6 PRE HD Past Patient History - Infectious Disease Hx of Infectious Diseases: None - Past Medical History & Family History Past Medical History?: Yes - Past Social History Smoking Status: Never Smoked - CARDIAC Hx Cardiac Disorders: Yes Hx Hypertension: Yes - PULMONARY Hx Respiratory Disorders: Yes Hx Pulmonary Edema: Yes - NEUROLOGICAL Hx Neurological Disorder: No - HEENT Hx HEENT Problems: No - RENAL Hx Chronic Kidney Disease: Yes Type of Dialysis Access: A-V Shunt R/A Date of Last Dialysis Treatment: 03/17/18 Hx Renal Failure: Yes - ENDOCRINE/METABOLIC Hx Endocrine Disorders: No - HEMATOLOGICAL/ONCOLOGICAL Hx Blood Disorders: No - INTEGUMENTARY Hx Dermatological Problems: No - MUSCULOSKELETAL/RHEUMATOLOGICAL Hx Musculoskeletal Disorders: No Hx Falls: No - GASTROINTESTINAL Hx Gastrointestinal Disorders: No - GENITOURINARY/GYNECOLOGICAL Hx Genitourinary Disorders: No - PSYCHIATRIC Hx Psychophysiologic Disorder: No Hx Substance Use: No - SURGICAL HISTORY Hx Surgeries: Yes Hx Kidney Transplant: Yes Hx Orthopedic Surgery: Yes (Knee) Hx Vascular Access Device: Yes (2013. left av fistula nonfunctioning/ RIGHT ARM(12/10/17)) Other/Comment: lung surgery, AV fistula 2000, Knee surgery. heart surgery- too much fluid around heart - ANESTHESIA Hx Anesthesia: Yes Hx Anesthesia Reactions: No Hx Malignant Hyperthermia: No Meds Allergies/Adverse Reactions: Allergies Allergy/AdvReac Type Severity Reaction Status Date / Time No Known Allergies Allergy Verified 09/17/17 09:46 - Medications Medications: Current Medications Cinacalcet (Sensipar) 90 mg PO QPM [facility] Clonidine HCl (Catapres) 0.2 mg PO BID [facility] Famotidine (Pepcid) 20 mg PO DAILY [facility] Sevelamer Carbonate (Renvela) 800 mg PO TIDCC [facility] Results - Vital Signs Recent Vital Signs: Last Vital Signs Temp 98.6 F 03/18/18 16:45 Pulse 64 03/18/18 17:12 Resp 16 03/18/18 17:12 BP 120/51 L 03/18/18 17:45 Pulse Ox 98 03/18/18 16:45 - Labs Result Diagrams: 03/18/18 11:48 Labs: Laboratory Results - last 24 hr 03/18/18 03/18/18 03/18/18 10:03 11:48 17:35 Sodium 139 138 Potassium 5.9 H 6.0 H Chloride 96 L 95 L Carbon Dioxide 32 H 34 H Anion Gap 17 15 BUN 38 H 37 H Creatinine 6.8 H 7.1 H Est GFR ( Amer) 10 10 Est GFR (Non-Af Amer) 9 8 POC Glucose (mg/dL) 121 H Random Glucose 75 75 Calcium 8.0 L 8.0 L Assessment & Plan - Assessment and Plan (Free Text) Assessment: ESRD ON HD M W F HYPERKALEMIA .. SURGERY CANCELLED .. HD NOW FOR OR IN AM : R ARM STEEL SYNDROME MMP .. C/O CURRENT CARE - Date & Time Date: 03/18/18 Time: 16:00
[2018-03-19 05:31] LABS: BASO % 0.7 % (0.0-2.0); EOS # 0.3 K/uL (0.0-0.7); EOS % 5.6 % (0.0-4.0); HEMOGLOBIN 12.7 g/dL (12.0-18.0); LYMPH # 1.4 K/uL (1.0-4.3); LYMPH % 24.3 % (20.0-40.0); MEAN CELL VOLUME 95.7 fL (80.0-94.0); MEAN CORPUSCULAR HGB CONC 33.4 g/dL (33.0-37.0); MEAN PLATELET VOLUME 9.6 fL (7.2-11.7); MONO # 0.7 K/uL (0.0-0.8); MONO % 11.5 % (0.0-10.0); NEUT # 3.3 K/uL (1.8-7.0); NEUT % 57.9 % (50.0-75.0); NRBC % 0.1 % (0.0-2.0); RBC 3.96 Mil/uL (4.40-5.90); RED CELL DISTRIBUTION WIDTH 15.1 % (11.5-14.5); WHITE BLOOD COUNT 5.8 K/uL (4.8-10.8)
[2018-03-19 06:10] LABS: INR 1.1; PROTHROMBIN TIME 12.5 SECONDS (9.7-12.2)
[2018-03-19 06:14] LABS: CALCIUM 9.1 mg/dl (8.6-10.4)
[2018-03-19] MEDS ORDERED: ceFAZolin 1 gm in NS 1 GM/100 ML BAG IVPB ONE ×2 (13:39→14:48)
[2018-03-19] MEDS ORDERED: ceFAZolin 1 gm in NS 0 GM/0 ML BAG IVPB ONE (13:39)
[2018-03-19] MEDS ORDERED: HEPARIN-NS 5,000 UNITS/500 ML 0 UNIT/0 ML BAG IV ONE (13:40)
[2018-03-19] MEDS ORDERED: Lidocaine Hydrochloride 0 ML INJ ONE (13:40)
[2018-03-19] MEDS ORDERED: Iohexol 240 (50 ml) ONE (13:40)
--- NOTE | 2018-03-19 14:05 | CP.PCM.PN ---
<Jackelin Concepcion - Last Filed: 03/19/18 16:27> Subjective - Date & Time of Evaluation Date of Evaluation: 03/19/18 Time of Evaluation: 09:40 - Subjective Subjective: Patient examined at bedside. No acute overnight events. Patient reports he received HD yesterday via AVF. Reports continued right hand tingling as well as B/L foot tingling. Discussion had w/ patient regarding intended surgery scheduled with Dr. Yates today, AVF DRIL. Patient denies complaints including chest pain, SOB, nausea Objective - Vital Signs/Intake and Output Vital Signs (last 24 hours): Temp Pulse Resp BP Pulse Ox 98.2 F 66 20 139/89 99 03/19/18 08:00 03/19/18 08:00 03/19/18 08:00 03/19/18 08:00 03/19/18 08:00 Intake and Output: 03/19/18 03/19/18 06:59 18:59 Intake Total 780 Balance 780 - Medications Medications: Current Medications Cinacalcet (Sensipar) 90 mg PO QPM [facility] Last Admin: 03/18/18 19:45 Dose: Not Given Clonidine HCl (Catapres) 0.2 mg PO BID [facility] Last Admin: 03/19/18 09:19 Dose: Not Given Famotidine (Pepcid) 20 mg PO DAILY [facility] Last Admin: 03/19/18 10:21 Dose: Not Given Sevelamer Carbonate (Renvela) 800 mg PO TIDCC [facility] Last Admin: 03/19/18 11:52 Dose: Not Given - Labs Labs: 03/19/18 05:27 03/19/18 05:27 PT 12.5 SECONDS (9.7-12.2) H 03/19/18 05:27 INR 1.1 03/19/18 05:27 APTT 37 SECONDS (21-34) H 03/19/18 05:27 - Constitutional Appears: Non-toxic, No Acute Distress - Head Exam Head Exam: ATRAUMATIC, NORMAL INSPECTION, NORMOCEPHALIC - Eye Exam Eye Exam: EOMI, Normal appearance - ENT Exam ENT Exam: Mucous Membranes Moist, Normal Exam - Neck Exam Neck Exam: Normal Inspection Additional comments: right upper chest wall scar, well healed, from previous shiley - Respiratory Exam Respiratory Exam: Clear to Ausculation Bilateral, NORMAL BREATHING PATTERN. absent: Respiratory Distress - Cardiovascular Exam Cardiovascular Exam: REGULAR RHYTHM, +S1, +S2 - GI/Abdominal Exam GI & Abdominal Exam: Soft, Normal Bowel Sounds. absent: Distended, Tenderness - Extremities Exam Extremities Exam: Normal Inspection. absent: Calf Tenderness, Pedal Edema Additional comments: pedal pulses present radial/ulnar pulses present Right AVF with palpable thrill UE/LE: sensation intact, 5/5 muscle strength, warm to touch - Neurological Exam Neurological Exam: Alert, Awake, Oriented x3 - Psychiatric Exam Psychiatric exam: Normal Affect, Normal Mood - Skin Skin Exam: Dry, Intact, Normal Color, Warm Assessment and Plan - Assessment and Plan (Free Text) Assessment: 52 year old male w/ pmhx of ESRD on HD admitted for medical optimization for anticipated AVF DRIL to correct arterial steal Plan: Arterial Steal Syndrome -NPO for OR -OR today for AVF DRIL -Vasc sx consult, Dr. Yates ESRD on HD -HD MWF -continue home meds ciacalcet, sevelamer, clonidine -I/Os -monitor labs -nephro consult, Dr. Keene Ppx: VTE: AC contraindicated peo-op, SCDs GI: Pepcid 20mg po QD Discussed w/ Dr. Pack -Jackelin Concepcion, PGY-1 <Win Pack - Last Filed: 03/19/18 16:47> Objective - Vital Signs/Intake and Output Vital Signs (last 24 hours): Temp Pulse Resp BP Pulse Ox 98.2 F 66 20 139/89 99 03/19/18 08:00 03/19/18 08:00 03/19/18 08:00 03/19/18 08:00 03/19/18 08:00 Intake and Output: 03/19/18 03/19/18 06:59 18:59 Intake Total 780 0 Balance 780 0 - Medications Medications: Current Medications Cinacalcet (Sensipar) 90 mg PO QPM [facility] Last Admin: 03/18/18 19:45 Dose: Not Given Clonidine HCl (Catapres) 0.2 mg PO BID [facility] Last Admin: 03/19/18 09:19 Dose: Not Given Famotidine (Pepcid) 20 mg PO DAILY [facility] Last Admin: 03/19/18 10:21 Dose: Not Given Sevelamer Carbonate (Renvela) 800 mg PO TIDCC [facility] Last Admin: 03/19/18 11:52 Dose: Not Given - Labs Labs: 03/19/18 05:27 03/19/18 05:27 PT 12.5 SECONDS (9.7-12.2) H 03/19/18 05:27 INR 1.1 03/19/18 05:27 APTT 37 SECONDS (21-34) H 03/19/18 05:27 Attending/Attestation - Attestation I have personally seen and examined this patient.: Yes I have fully participated in the care of the patient.: Yes I have reviewed all pertinent clinical information, including history, physical exam and plan: Yes Notes (Text): 03/19/18 16:45 Medical attending: Patient was seen and examined by me. Agree with the above note by the resident The patient was not in any acute distress when I came and saw him He is pending surgery for later on today As mentioned above in the resident note there are concerns for steal syndrome and he is going for intervention for this later today Win Pack
[2018-03-19] MEDS ORDERED: Midazolam 2 MG/2 ML VIAL ONE (15:01)
[2018-03-19] MEDS ORDERED: Propofol 10 mg/ml Inj (20 ML) ONE (15:01)
[2018-03-19] MEDS ORDERED: Neostigmine 1:1000 (1 mg/ml) Inj ONE (16:53)
[2018-03-19] MEDS ORDERED: HEPARIN-NS 5,000 UNITS/500 ML 5,000 UNIT/500 ML BAG IV ONE (17:44)
[2018-03-19] MEDS ORDERED: Thrombin Topical 20,000 Intl Units Spray Kit TOP ONE (18:17)
[2018-03-19] MEDS ORDERED: Sodium Chloride 0.9% 500 ML IV ONE ×2 (19:22→20:55)
--- NOTE | 2018-03-19 19:28 | PCM.SURG1 ---
Surgeon's Initial Post Op Note - Surgeon's Notes Surgeon: Dr. Yates Medical Attendant: Dr. Rojas PGY3 Type of Anesthesia: General Endo Pre-Operative Diagnosis: Steal syndrome Operative Findings: see dictation Post-Operative Diagnosis: same Operation Performed: DRIL procedure, Right internal jugular shiley placement Specimen/Specimens Removed: none Estimated Blood Loss: EBL {In ML}: 50 Blood Products Given: N/A Drains Used: No Drains Post-Op Condition: Good Date of Surgery/Procedure: 03/19/18 Time of Surgery/Procedure: 19:28
[2018-03-19] MEDS ORDERED: HYDROmorphone 0.5 mg/0.5 ml ISec IVP PRN (19:30)
[2018-03-19] MEDS: Morphine 4 MG/ML VIAL IVP PRN ×2 (19:44→20:17)
[2018-03-20] MEDS: Oxycodone/Acetaminophen 5/325 mg Tab PO PRN ×2 (01:17→17:43)
--- NOTE | 2018-03-20 04:54 | OP ---
PROCEDURE DATE: 03/19/2018 PREOPERATIVE DIAGNOSIS: Renal failure. POSTOPERATIVE DIAGNOSIS: Renal failure, steal syndrome right hand. PROCEDURE CARRIED OUT: Distal revascularization and interval ligation and insertion to temporary dialysis catheter, right jugular vein with fluoroscopy. SURGEON: Mino Yates Jr., MD INTERFACE CONTROL OFFICER: Taina Rojas DO ANESTHESIOLOGIST: Dr. Astorga. INDICATIONS: The patient is a 52-year-old man on dialysis, who had multiple failures in his left arm and his right arm. We eventually created a shunt in his right arm with a Bovie graft. This has worked well, and he had ischemic symptoms in his hand which developed. He subsequently had partial clipping which seemed on the pulse oximetry tracings and he has to improve the perfusion on the hand, now he complains of continued symptoms. OPERATIVE FINDINGS: The vein was of a small size, however, the vein was at least 2.5 mm in diameter in its most cephalad segments which is part where the proximal anastomosis was done. Distally, it was of adequate size and matched the size of the artery. We carried out a standard DRIL procedure from above the takeoff of the arterial part of the fistula down to the brachial artery below this, ligating proximal to the brachial artery to allow for no retrograde flow up into the shunt. At the end of the procedure, we did not carry out an angiogram. We had very good augmentation, very good flow through the fistula and through the vein graft. The only problem I was concerned about was the small size of the proximal 5 to 6 cm of the basilic vein that we used for the bypass. DESCRIPTION OF PROCEDURE: The patient was given general anesthesia and intravenous antibiotics. The basilic vein was harvested from the mid forearm up to above the graft site of the proximal anastomosis. The distal portion, however, was quite small, but eventually we were satisfied with it now as we were able to put a 2.5 mm dilator. We then created a distal anastomosis first using loupe magnification and also heparin anticoagulation. We then carried out proximal anastomosis. This went quite well. We did not carry out an angiogram. Checking the Doppler, we had great flow, great pulse oximetry tracings, and everything was much improved. Because of this, we then terminated the procedure. We closed the wounds with Monocryl and Vicryl sutures, closed the skin with skin clips. The blood loss of the procedure was 200 to 300 mL. We then placed a temporary dialysis catheter at the end of the procedure. Operation carried out: 1. DRIL procedure, distal revascularization and tubal ligation of right arm. 2. Insertion of temporary dialysis catheter. Mino Yates Jr., MD
[2018-03-20 07:33] LABS: BASO % 0.5 % (0.0-2.0); EOS % 0.4 % (0.0-4.0); HEMOGLOBIN 12.6 g/dL (12.0-18.0); LYMPH # 1.1 K/uL (1.0-4.3); LYMPH % 14.2 % (20.0-40.0); MEAN CELL VOLUME 95.6 fL (80.0-94.0); MEAN CORPUSCULAR HEMOGLOBIN 32.6 pg (27.0-31.0); MEAN CORPUSCULAR HGB CONC 34.1 g/dL (33.0-37.0); MEAN PLATELET VOLUME 10.3 fL (7.2-11.7); MONO # 0.7 K/uL (0.0-0.8); MONO % 8.9 % (0.0-10.0); RBC 3.87 Mil/uL (4.40-5.90); RED CELL DISTRIBUTION WIDTH 15.2 % (11.5-14.5); WHITE BLOOD COUNT 7.8 K/uL (4.8-10.8)
[2018-03-20 08:09] LABS: CALCIUM 9.3 mg/dl (8.6-10.4)
--- NOTE | 2018-03-20 08:22 | RAD ---
Date of service: 03/19/2018 HISTORY: shiley placement COMPARISON: No prior. FINDINGS: LUNGS: There is replacement of right-sided permanent dialysis catheter is now made by temporary venous catheter terminating at the right atrium via right internal jugular approach. No acute infiltrates bilaterally. PLEURA: No significant pleural effusion identified, no pneumothorax apparent. CARDIOVASCULAR: Calcific atherosclerotic changes are seen related to the thoracic aorta. Cardiomegaly is not excluded but is more likely magnified by frontal technique. Dense mitral annular calcifications are appreciate no pulmonary vascular congestion. OSSEOUS STRUCTURES: No significant abnormalities. VISUALIZED UPPER ABDOMEN: Normal. OTHER FINDINGS: None. IMPRESSION: Interval replacement of dialysis catheter by temporary catheter terminating at the atrial cavoatrial junction. No pneumothorax. No infiltrates bilaterally. No pulmonary vascular congestion. Appearing cardiac silhouette.
--- NOTE | 2018-03-20 12:08 | CP.PCM.PN ---
Subjective - Date & Time of Evaluation Date of Evaluation: 03/20/18 Time of Evaluation: 12:05 - Subjective Subjective: Vascular Surgery Dr. Yates Pt seen and examined @bedside. No acute events overnight. improved symptoms in right hand. Pain well controlled. tolerating diet. Objective - Vital Signs/Intake and Output Vital Signs (last 24 hours): Temp Pulse Resp BP Pulse Ox 97.5 F L 68 16 105/56 L 98 03/20/18 09:20 03/20/18 09:20 03/20/18 09:20 03/20/18 11:20 03/20/18 09:20 Intake and Output: 03/20/18 03/20/18 06:59 18:59 Intake Total 120 Balance 120 - Medications Medications: Current Medications Cinacalcet (Sensipar) 90 mg PO QPM [facility] Last Admin: 03/19/18 18:00 Dose: Not Given Clonidine HCl (Catapres) 0.2 mg PO BID [facility] Last Admin: 03/20/18 10:40 Dose: Not Given Famotidine (Pepcid) 20 mg PO DAILY [facility] Last Admin: 03/20/18 10:39 Dose: Not Given Heparin Sodium (Porcine) (Heparin (For Dialysis)) 2,400 units IVP TTS [facility] Hydromorphone HCl (Dilaudid) 0.5 mg IVP Q3 PRN PRN Reason: Pain, severe (8-10) Ondansetron HCl (Zofran Inj) 4 mg IVP Q4 PRN PRN Reason: Nausea/Vomiting Oxycodone/Acetaminophen (Percocet 5/325 Mg Tab) 1 tab PO Q4H PRN PRN Reason: Pain, moderate (4-7) Stop: 03/22/18 19:31 Last Admin: 03/20/18 01:17 Dose: 1 tab Sevelamer Carbonate (Renvela) 800 mg PO TIDCC [facility] Last Admin: 03/20/18 08:58 Dose: 800 mg - Labs Labs: 03/20/18 07:19 03/20/18 07:19 PT 12.5 SECONDS (9.7-12.2) H 03/19/18 05:27 INR 1.1 03/19/18 05:27 APTT 37 SECONDS (21-34) H 03/19/18 05:27 - Constitutional Appears: Non-toxic, No Acute Distress - Head Exam Head Exam: NORMAL INSPECTION - Eye Exam Eye Exam: Normal appearance - ENT Exam ENT Exam: Mucous Membranes Moist - Neck Exam Additional comments: shiley catheter in place - Respiratory Exam Respiratory Exam: NORMAL BREATHING PATTERN. absent: Accessory Muscle Use, Respiratory Distress - Cardiovascular Exam Cardiovascular Exam: Bradycardia, Tachycardia. absent: REGULAR RHYTHM - GI/Abdominal Exam GI & Abdominal Exam: Soft. absent: Distended, Tenderness - Extremities Exam Additional comments: dopplerable R radial and ulnar pulses. palpable thrill - Neurological Exam Neurological Exam: Alert, Awake, Oriented x3 - Psychiatric Exam Psychiatric exam: Normal Affect, Normal Mood - Skin Skin Exam: Dry, Intact, Normal Color, Warm Assessment and Plan - Assessment and Plan (Free Text) Assessment: 52 y/o M w/ ESRD requiring HD w/ steal syndrome POD#1 s/p DRIL procedure Plan: - Q4 vascular checks - HD as scheduled via shiley - cont pain management - encourage OOb to chair/Amb/IS use Pt discussed w/ Dr. Milan Rojas DO PGY3
--- NOTE | 2018-03-20 15:07 | RAD ---
PROCEDURE: HISTORY: As above COMPARISON: None TECHNIQUE: Total fluoroscopic time utilized during the procedure: 12.9 seconds ; 2.41 mGy cm 2 FINDINGS: Submitted images from the current procedure: 2 Please refer to the physician's notes performing the procedure. IMPRESSION: Less than 1 hour fluoroscopic time utilized during performance of the procedure
--- NOTE | 2018-03-20 16:02 | CARD ---
APPROVED REPORT Date of service: 03/18/2018 EKG Measurement Heart [id number] <Conclusion> Normal sinus rhythm Left axis deviation Minimal voltage criteria for LVH, may be normal variant Abnormal ECG
--- NOTE | 2018-03-20 17:51 | CP.PCM.PN ---
<ConcepcionJackelin - Last Filed: 03/20/18 18:39> Subjective - Date & Time of Evaluation Date of Evaluation: 03/20/18 Time of Evaluation: 10:30 - Subjective Subjective: Patient examined in HD room. Being dialyzed via right IJ catheter. Patient reports his symptoms of right hand tingling are much improved s/p AVF DRIL yesterday. Pt denies pain Objective - Vital Signs/Intake and Output Vital Signs (last 24 hours): Temp Pulse Resp BP Pulse Ox 98.0 F 69 20 133/69 96 03/20/18 15:00 03/20/18 15:00 03/20/18 15:00 03/20/18 15:00 03/20/18 15:00 Intake and Output: 03/20/18 03/20/18 06:59 18:59 Intake Total 120 Balance 120 - Medications Medications: Current Medications Cinacalcet (Sensipar) 90 mg PO QPM [facility] Last Admin: 03/20/18 17:31 Dose: 90 mg Clonidine HCl (Catapres) 0.2 mg PO BID [facility] Last Admin: 03/20/18 17:31 Dose: 0.2 mg Famotidine (Pepcid) 20 mg PO DAILY [facility] Last Admin: 03/20/18 10:39 Dose: Not Given Heparin Sodium (Porcine) (Heparin (For Dialysis)) 2,400 units IVP TTS [facility] Last Admin: 03/20/18 12:25 Dose: 2,400 units Hydromorphone HCl (Dilaudid) 0.5 mg IVP Q3 PRN PRN Reason: Pain, severe (8-10) Ondansetron HCl (Zofran Inj) 4 mg IVP Q4 PRN PRN Reason: Nausea/Vomiting Oxycodone/Acetaminophen (Percocet 5/325 Mg Tab) 1 tab PO Q4H PRN PRN Reason: Pain, moderate (4-7) Stop: 03/22/18 19:31 Last Admin: 03/20/18 01:17 Dose: 1 tab Sevelamer Carbonate (Renvela) 800 mg PO TIDCC [facility] Last Admin: 03/20/18 17:31 Dose: 800 mg - Labs Labs: 03/20/18 07:19 03/20/18 07:19 PT 12.5 SECONDS (9.7-12.2) H 03/19/18 05:27 INR 1.1 03/19/18 05:27 APTT 37 SECONDS (21-34) H 03/19/18 05:27 - Additional Findings Additional findings: - Constitutional Appears: Non-toxic, No Acute Distress - Head Exam Head Exam: ATRAUMATIC, NORMAL INSPECTION, NORMOCEPHALIC - Eye Exam Eye Exam: EOMI, Normal appearance - ENT Exam ENT Exam: Mucous Membranes Moist, Normal Exam - Neck Exam Neck Exam: Normal Inspection Additional comments: right upper chest wall catheter, HD in process - Respiratory Exam Respiratory Exam: Clear to Ausculation Bilateral, NORMAL BREATHING PATTERN. absent: Respiratory Distress - Cardiovascular Exam Cardiovascular Exam: REGULAR RHYTHM, +S1, +S2 - GI/Abdominal Exam GI & Abdominal Exam: Soft, Normal Bowel Sounds. absent: Distended, Tenderness - Extremities Exam Extremities Exam: Normal Inspection. absent: Calf Tenderness, Pedal Edema Additional comments: pedal pulses present radial/ulnar pulses present Right AVF with palpable thrill, bandaged c/d/i UE/LE: sensation intact, 5/5 muscle strength, warm to touch - Neurological Exam Neurological Exam: Alert, Awake, Oriented x3 - Psychiatric Exam Psychiatric exam: Normal Affect, Normal Mood - Skin Skin Exam: Dry, Intact, Normal Color, Warm Assessment and Plan - Assessment and Plan (Free Text) Assessment: 52 year old male w/ pmhx of ESRD on HD admitted s/p right AVF DRIL, POD #1 Plan: Arterial Steal Syndrome -s/p AVF DRIL, POD #1 -s/p right IJ shiley insertion POD #1 -Vasc sx consult, Dr. Yates ESRD on HD -HD MWF -continue home meds ciacalcet, sevelamer, clonidine -I/Os -monitor labs -nephro consult, Dr. Keene Ppx: VTE: AC contraindicated peo-op, SCDs GI: Pepcid 20mg po QD Dispo: awaiting recs from nephro Discussed w/ Dr. Pack -Jackelin Concepcion, PGY-1 <Win Pack H - Last Filed: 03/21/18 07:38> Objective - Vital Signs/Intake and Output Vital Signs (last 24 hours): Temp Pulse Resp BP Pulse Ox 98.2 F 71 20 156/82 H 98 03/20/18 23:00 03/20/18 23:00 03/20/18 23:00 03/20/18 23:00 03/20/18 23:00 - Medications Medications: Current Medications Cinacalcet (Sensipar) 90 mg PO QPM [facility] Last Admin: 03/20/18 17:31 Dose: 90 mg Clonidine HCl (Catapres) 0.2 mg PO BID [facility] Last Admin: 03/20/18 17:31 Dose: 0.2 mg Famotidine (Pepcid) 20 mg PO DAILY [facility] Last Admin: 03/20/18 10:39 Dose: Not Given Heparin Sodium (Porcine) (Heparin (For Dialysis)) 2,400 units IVP TTS [facility] Last Admin: 03/20/18 12:25 Dose: 2,400 units Hydromorphone HCl (Dilaudid) 0.5 mg IVP Q3 PRN PRN Reason: Pain, severe (8-10) Ondansetron HCl (Zofran Inj) 4 mg IVP Q4 PRN PRN Reason: Nausea/Vomiting Oxycodone/Acetaminophen (Percocet 5/325 Mg Tab) 1 tab PO Q4H PRN PRN Reason: Pain, moderate (4-7) Stop: 03/22/18 19:31 Last Admin: 03/20/18 17:43 Dose: 1 tab Sevelamer Carbonate (Renvela) 800 mg PO TIDCC [facility] Last Admin: 03/20/18 17:31 Dose: 800 mg - Labs Labs: 03/20/18 07:19 03/20/18 07:19 PT 12.5 SECONDS (9.7-12.2) H 03/19/18 05:27 INR 1.1 03/19/18 05:27 APTT 37 SECONDS (21-34) H 03/19/18 05:27 Attending/Attestation - Attestation I have personally seen and examined this patient.: Yes I have fully participated in the care of the patient.: Yes I have reviewed all pertinent clinical information, including history, physical exam and plan: Yes Notes (Text): Medical attending: Patient was seen and examined by me. Agree with the above note by the resident We saw the patient during HD. He reported feeling well. The symptoms he was having in his right hand and arm are improved from before. Win Pack
--- NOTE | 2018-03-20 20:17 | CP.PCM.PN ---
Subjective - Date & Time of Evaluation Date of Evaluation: 03/20/18 Time of Evaluation: 15:00 - Subjective Subjective: SEEN IN ROOM S/P HD CATH WAS USED R ARM PAIN MUCH BETTER .. S/P STEAL SYNDROME VSS Objective - Vital Signs/Intake and Output Vital Signs (last 24 hours): Temp Pulse Resp BP Pulse Ox 98.0 F 69 20 133/69 96 03/20/18 15:00 03/20/18 15:00 03/20/18 15:00 03/20/18 15:00 03/20/18 15:00 - Medications Medications: Current Medications Cinacalcet (Sensipar) 90 mg PO QPM [facility] Last Admin: 03/20/18 17:31 Dose: 90 mg Clonidine HCl (Catapres) 0.2 mg PO BID [facility] Last Admin: 03/20/18 17:31 Dose: 0.2 mg Famotidine (Pepcid) 20 mg PO DAILY [facility] Last Admin: 03/20/18 10:39 Dose: Not Given Heparin Sodium (Porcine) (Heparin (For Dialysis)) 2,400 units IVP TTS [facility] Last Admin: 03/20/18 12:25 Dose: 2,400 units Hydromorphone HCl (Dilaudid) 0.5 mg IVP Q3 PRN PRN Reason: Pain, severe (8-10) Ondansetron HCl (Zofran Inj) 4 mg IVP Q4 PRN PRN Reason: Nausea/Vomiting Oxycodone/Acetaminophen (Percocet 5/325 Mg Tab) 1 tab PO Q4H PRN PRN Reason: Pain, moderate (4-7) Stop: 03/22/18 19:31 Last Admin: 03/20/18 17:43 Dose: 1 tab Sevelamer Carbonate (Renvela) 800 mg PO TIDCC [facility] Last Admin: 03/20/18 17:31 Dose: 800 mg - Labs Labs: 03/20/18 07:19 03/20/18 07:19 PT 12.5 SECONDS (9.7-12.2) H 03/19/18 05:27 INR 1.1 03/19/18 05:27 APTT 37 SECONDS (21-34) H 03/19/18 05:27 Assessment and Plan - Assessment and Plan (Free Text) Assessment: ESRD ON HD M W F S/P STEEL SYNDROME SURGERY PT IS STABLE FOR D/C FROM [facility] C/O CURRENT MEDS
--- NOTE | 2018-03-21 07:45 | CP.PCM.PN ---
Subjective - Date & Time of Evaluation Date of Evaluation: 03/21/18 Time of Evaluation: 07:25 - Subjective Subjective: Surgery progress note for Dr. Yates. Patient seen and examined at bedside. No acute events overnight reported. Patient has a complaint of shiley cath in neck area that is bothersome. Patient states his arm feels well and has sensation to arm. Patient has no further complaints. Objective - Vital Signs/Intake and Output Vital Signs (last 24 hours): Temp Pulse Resp BP Pulse Ox 98.2 F 71 20 156/82 H 98 03/20/18 23:00 03/20/18 23:00 03/20/18 23:00 03/20/18 23:00 03/20/18 23:00 Intake and Output: 03/21/18 03/21/18 06:59 18:59 Intake Total 150 Balance 150 - Medications Medications: Current Medications Cinacalcet (Sensipar) 90 mg PO QPM [facility] Last Admin: 03/20/18 17:31 Dose: 90 mg Clonidine HCl (Catapres) 0.2 mg PO BID [facility] Last Admin: 03/20/18 17:31 Dose: 0.2 mg Famotidine (Pepcid) 20 mg PO DAILY [facility] Last Admin: 03/20/18 10:39 Dose: Not Given Heparin Sodium (Porcine) (Heparin (For Dialysis)) 2,400 units IVP TTS [facility] Last Admin: 03/20/18 12:25 Dose: 2,400 units Hydromorphone HCl (Dilaudid) 0.5 mg IVP Q3 PRN PRN Reason: Pain, severe (8-10) Ondansetron HCl (Zofran Inj) 4 mg IVP Q4 PRN PRN Reason: Nausea/Vomiting Oxycodone/Acetaminophen (Percocet 5/325 Mg Tab) 1 tab PO Q4H PRN PRN Reason: Pain, moderate (4-7) Stop: 03/22/18 19:31 Last Admin: 03/20/18 17:43 Dose: 1 tab Sevelamer Carbonate (Renvela) 800 mg PO TIDCC [facility] Last Admin: 03/20/18 17:31 Dose: 800 mg - Labs Labs: 03/20/18 07:19 03/20/18 07:19 PT 12.5 SECONDS (9.7-12.2) H 03/19/18 05:27 INR 1.1 03/19/18 05:27 APTT 37 SECONDS (21-34) H 03/19/18 05:27 - Constitutional Appears: No Acute Distress - Head Exam Head Exam: NORMAL INSPECTION - Neck Exam Additional comments: shiley catheter in place on R side dressing clean, dry, intact - Respiratory Exam Respiratory Exam: NORMAL BREATHING PATTERN - Extremities Exam Additional comments: dopplerable R radial and ulnar pulses. palpable thrill - Neurological Exam Neurological Exam: Alert, Awake, Oriented x3 - Psychiatric Exam Psychiatric exam: Normal Affect, Normal Mood Assessment and Plan - Assessment and Plan (Free Text) Assessment: 52 y/o M w/ ESRD requiring HD w/ steal syndrome POD#2 s/p DRIL procedure Plan: - will d/c shiley later today - may use fistula for dialysis - encourage OOb to chair/Amb/IS use - patient safe from surgical standpoint after dialysis and removal of shiley for d/c - patient should follow up in 1 week following discharge with Dr. Yates - d/w Dr. Milan Sotelo, PGY1
--- NOTE | 2018-03-21 13:41 | CP.PCM.DIS ---
Provider - Provider Date of Admission: 03/18/18 12:23 Attending physician: Nazario Pathak MD Consults: 03/18/18 12:25 Nephrology Consult Routine Comment: Consulting Provider: Pasha Keene Consulting Physician: Pasha Keene Reason for Consult: dialysis; K 6.0 03/18/18 15:45 General Surgery Consult Routine Comment: Consulting Provider: Mino Yates Jr. Consulting Physician: Mino Yates Jr. Reason for Consult: AVF DRIL Time Spent in preparation of Discharge (in minutes): 30 Diagnosis - Discharge Diagnosis (1) Dialysis AV fistula malfunction Status: Acute Hospital Course - Lab Results Lab Results: Most Recent Lab Values WBC 7.8 K/uL (4.8-10.8) 03/20/18 07:19 RBC 3.87 Mil/uL (4.40-5.90) L 03/20/18 07:19 Hgb 12.6 g/dL (12.0-18.0) 03/20/18 07:19 Hct 37.0 % (35.0-51.0) 03/20/18 07:19 MCV 95.6 fL (80.0-94.0) H 03/20/18 07:19 MCH 32.6 pg (27.0-31.0) H 03/20/18 07:19 MCHC 34.1 g/dL (33.0-37.0) 03/20/18 07:19 RDW 15.2 % (11.5-14.5) H 03/20/18 07:19 Plt Count 169 K/uL (130-400) 03/20/18 07:19 MPV 10.3 fL (7.2-11.7) 03/20/18 07:19 Neut % (Auto) 76.0 % (50.0-75.0) H 03/20/18 07:19 Lymph % (Auto) 14.2 % (20.0-40.0) L 03/20/18 07:19 [place] % (Auto) 8.9 % (0.0-10.0) 03/20/18 07:19 Eos % (Auto) 0.4 % (0.0-4.0) 03/20/18 07:19 Baso % (Auto) 0.5 % (0.0-2.0) 03/20/18 07:19 Neut # (Auto) 6.0 K/uL (1.8-7.0) 03/20/18 07:19 Lymph # (Auto) 1.1 K/uL (1.0-4.3) 03/20/18 07:19 [place] # (Auto) 0.7 K/uL (0.0-0.8) 03/20/18 07:19 Eos # (Auto) 0.0 K/uL (0.0-0.7) 03/20/18 07:19 Baso # (Auto) 0.0 K/uL (0.0-0.2) 03/20/18 07:19 PT 12.5 SECONDS (9.7-12.2) H 03/19/18 05:27 INR 1.1 03/19/18 05:27 APTT 37 SECONDS (21-34) H 03/19/18 05:27 Sodium 136 mmol/L (132-148) 03/20/18 07:19 Potassium 6.1 mmol/L (3.6-5.2) H 03/20/18 07:19 Chloride 95 mmol/L (98-107) L 03/20/18 07:19 Carbon Dioxide 28 mmol/L (22-30) 03/20/18 07:19 Anion Gap 19 (10-20) 03/20/18 07:19 BUN 51 mg/dL (9-20) H 03/20/18 07:19 Creatinine 9.0 mg/dL (0.8-1.5) H* D 03/20/18 07:19 Est GFR ( Amer) 8 03/20/18 07:19 Est GFR (Non-Af Amer) 6 03/20/18 07:19 POC Glucose (mg/dL) 124 mg/dL (65-110) H 03/21/18 11:28 Random Glucose 109 mg/dL (75-110) D 03/20/18 07:19 Calcium 9.3 mg/dl (8.6-10.4) 03/20/18 07:19 Phosphorus 4.4 mg/dL (2.5-4.5) 03/20/18 07:19 Magnesium 2.2 mg/dL (1.6-2.3) 03/20/18 07:19 Blood Type O POSITIVE 03/19/18 05:47 Antibody Screen Negative 03/19/18 05:47 - Hospital Course Hospital Course: Patient was admitted for treatment of hyperkalemia and medical optimization in anticipation of planned AVF DRIL for symptomatic steal syndrome. Hyperkalemia of 6.0 with no EKG changes. General surgery, Dr. Yates and Nephrology, Dr. Keene consulted. Patient underwent thrombectomy/DRIL of right AVF and placement of right IJ shiley. Patient was subsequently dialyzed via shiley following surgery. Shiley removed and pt safe for discharge to continue HD via AVF as instructed by nephrology HPI on admission: "52M PMHx of ESRD, HTn and Subclavian Steal Syndrome presents in same day surgery before a vascular procedure with Dr Yates. Pt was to go today but was admitted because of hyperkalemia, procedure delayed until this resolves. Pt only complain it numbness and pale color of his right hand since 3 months ago. Pt believes it has to do with his fistula. Pt denies any pain or swelling in the area. Pt also complains of numbness in both toes. Pt says he has been on dialysis for 18 years and follows up with Dr Keene, his HD days are MWF." Discharge Exam - Additional Findings Additional findings: - Constitutional Appears: Non-toxic, No Acute Distress - Head Exam Head Exam: ATRAUMATIC, NORMAL INSPECTION, NORMOCEPHALIC - Eye Exam Eye Exam: EOMI, Normal appearance - ENT Exam ENT Exam: Mucous Membranes Moist, Normal Exam - Neck Exam Neck Exam: Normal Inspection Additional comments: right upper chest wall catheter, HD in process - Respiratory Exam Respiratory Exam: Clear to Ausculation Bilateral, NORMAL BREATHING PATTERN. absent: Respiratory Distress - Cardiovascular Exam Cardiovascular Exam: REGULAR RHYTHM, +S1, +S2 - GI/Abdominal Exam GI & Abdominal Exam: Soft, Normal Bowel Sounds. absent: Distended, Tenderness - Extremities Exam Extremities Exam: Normal Inspection. absent: Calf Tenderness, Pedal Edema Additional comments: pedal pulses present radial/ulnar pulses present Right AVF with palpable thrill, bandaged c/d/i UE/LE: sensation intact, 5/5 muscle strength, warm to touch - Neurological Exam Neurological Exam: Alert, Awake, Oriented x3 - Psychiatric Exam Psychiatric exam: Normal Affect, Normal Mood - Skin Skin Exam: Dry, Intact, Normal Color, Warm Discharge Plan - Follow Up Plan Condition: GOOD Disposition: HOME/ ROUTINE Additional Instructions: Patient is stable for discharge home. Patient is instructed to resume all home medication as prescribed by PMD or out of town collection clerk. Patient instructed to resume normal hemodialysis scheduled per out of town collection clerk. Patient instructed to follow up with PMD or clinic within 1 week of discharge Patient instructed to follow up with Surgery, Dr. Yates within 1 week of discharge. Patient instructed to follow up with [facility], Dr. Keene within several days of discharge Right AVF is functional and patient may continue HD using fistula. Temporary Shiley catheter site: instructed to keep dressing dry for 2 days Patient instructed to notify PMD or return to ED with worsening of symptoms. Referrals: Negin Iraheta MD [Staff Provider] - Pasha Keene MD [Staff Provider] - Mino Yates Jr., MD [Staff Provider] -
[2018-03-21 16:17] VITALS: O2SAT 99
[2018-03-21 17:48] VITALS: BP 157/78; PULSE 63; RESP 20; TEMP 98
== END 2018-03-21 21:50 | disposition home or self-care (01) | DRG 182 ==
LOC: C.SDS 09:14 → C.9S 12:23 → C.3T 20:07
PROVIDERS: ADMIT Family Medicine; ATTEND Family Medicine
PROC: 5A1D70Z Performance of Urinary Filtration, Intermittent, Less than 6 Hours Per Day (ICD-10-PCS; 2018-03-18)
PROC: 02HV33Z Insertion of Infusion Device into Superior Vena Cava, Percutaneous Approach (ICD-10-PCS; 2018-03-19)
PROC: B518ZZA Fluoroscopy of Superior Vena Cava, Guidance (ICD-10-PCS; 2018-03-19)
PROC: 03LY0ZZ Occlusion of Upper Artery, Open Approach (ICD-10-PCS; principal; 2018-03-19 11:30)
PROC: 5A1D70Z Performance of Urinary Filtration, Intermittent, Less than 6 Hours Per Day (ICD-10-PCS; 2018-03-20)
PROC: 5A1D70Z Performance of Urinary Filtration, Intermittent, Less than 6 Hours Per Day (ICD-10-PCS; 2018-03-21)
DX: T82.898A Other specified complication of vascular prosthetic devices, implants and grafts, initial encounter (principal); E87.5 Hyperkalemia; N18.6 End stage renal disease; I12.0 Hypertensive chronic kidney disease with stage 5 chronic kidney disease or end stage renal disease; Y71.2 Prosthetic and other implants, materials and accessory cardiovascular devices associated with adverse incidents; Z53.9 Procedure and treatment not carried out, unspecified reason; Z99.2 Dependence on renal dialysis

== ENCOUNTER 2018-04-02 15:07 | Emergency (ER) | payer MEDICAID, SELFPAY ==
[2018-04-02 15:16] VITALS: BMI 25.8
[2018-04-02 15:22] VITALS: BP 184/72; PULSE 66; TEMP 98.6; O2SAT 100
--- NOTE | 2018-04-02 15:50 | C.PDOC ---
History Of Present Illness 53 year old male presents to the ED for evaluation. Patient underwent AV fistula placement to his right upper arm by Dr. Yates. He has not followed up with Dr. Yates since he underwent the procedure around two weeks ago. Patient presents to the ED for removal of sutures from the area. He denies fever, chills. Time Seen by Provider: 04/02/18 15:23 Chief Complaint (Nursing): Suture/Staple Removal History Per: Patient History/Exam Limitations: no limitations Onset/Duration Of Symptoms: Hrs Current Symptoms Are (Timing): Still Present Additional History Per: Patient Past Medical History Reviewed: Historical Data, Nursing Documentation, Vital Signs Vital Signs: Last Vital Signs Temp 98.6 F 04/02/18 15:16 Pulse 66 04/02/18 15:16 Resp 18 04/02/18 15:16 BP 184/72 H 04/02/18 15:16 Pulse Ox 100 04/02/18 15:16 - Medical History PMH: HTN, End Stage Renal Disease (DIALYSIS 3 X WEEK, MWF), Chronic Kidney Disease Surgical History: No Surg Hx - [facility] Procedures (03/18/18) BYPASS RIGHT BRACHIAL ARTERY TO UP ARM VEIN, OPEN APPROACH (03/31/17) DILATION OF LEFT BRACHIAL ARTERY, PERCUTANEOUS APPROACH (03/31/17) EXCISION OF SIGMOID COLON, ENDO (02/19/15) EXTIRPATION OF MATTER FROM L BRACH ART, PERC APPROACH (03/31/17) FLUOROSCOPY OF DIALYSIS SHUNT/FISTULA USING L OSM CONTRAST (03/31/17) FLUOROSCOPY OF SUPERIOR VENA CAVA, GUIDANCE (03/18/18) HEMODIALYSIS (06/22/12) INSERTION OF INFUSION DEV INTO SUP VENA CAVA, PERC APPROACH (03/18/18) OCCLUSION OF UPPER ARTERY, OPEN APPROACH (03/18/18) PERFORMANCE OF URINARY FILTRATION, MULTIPLE (02/19/15) Family History: States: Unknown Family Hx - Social History Hx Tobacco Use: No Hx Alcohol Use: No Hx Substance Use: No - Immunization History Hx Tetanus Toxoid Vaccination: Yes Hx Influenza Vaccination: Yes Hx Pneumococcal Vaccination: Yes Review Of Systems Skin: Positive for: Other (wound check ) Physical Exam - Physical Exam Appears: Non-toxic, No Acute Distress Skin: Normal Color, Warm, Dry Eye(s): bilateral: Normal Inspection Extremity: Normal ROM, Capillary Refill (less than 2 seconds ), Other (right upper arm sutures intact ) Neurological/Psych: Normal Speech, Normal Cognition ED Course And Treatment O2 Sat by Pulse Oximetry: 100 (on RA) Pulse Ox Interpretation: Normal Medical Decision Making Medical Decision Making: Case discussed with Dr. Yates, who advises for patient to follow up with him in office. Instructed not to remove sutures in the ED. Disposition Counseled Patient/Family Regarding: Diagnosis, Need For Followup - Disposition Referrals: Mino Yates Jr., MD [Staff Provider] - Disposition: HOME/ ROUTINE Disposition Time: 15:48 Condition: GOOD Additional Instructions: Llame a la oficina del Dr. Yates para hacer isaac dameon para gregg viernes. Si no hay nadie en la oficina, deje un mensaje y alguien se comunicar con usted. Call Dr Yates's office to make an appointment for this Saturday. If no one is in the office, leave a message and soneone will get back to you. Forms: Gen Discharge Inst Icelandic, Abzena (Icelandic) Print Language: IVORIAN - Clinical Impression Clinical Impression: Encounter for postoperative wound check - PA / WHEAT BU[employer]ER / Resident Statement MD/DO has reviewed & agrees with the documentation as recorded. - Scribe Statement The provider has reviewed the documentation as recorded by the Scribe (Pauline Pathak) All medical record entries made by the Scribe were at my direction and personally dictated by me. I have reviewed the chart and agree that the record accurately reflects my personal performance of the history, physical exam, medical decision making, and the department course for this patient. I have also personally directed, reviewed, and agree with the discharge instructions and disposition.
[2018-04-02 15:56] VITALS: RESP 20
== END 2018-04-02 15:56 | disposition home or self-care (01) ==
LOC: C.ER 15:07
DX: Z48.01 Encounter for change or removal of surgical wound dressing (principal)

== ENCOUNTER 2018-06-18 07:59 | Observation (INO) | payer MEDICAID, OTHER ==
[2018-06-18 08:09] VITALS: BMI 25.1
--- NOTE | 2018-06-18 08:27 | C.PDOC ---
History Of Present Illness 53 y/o male presents to the ER complaining of hematuria which began yesterday. Patient states that he has associated dysuria. Patient reports that he has history of ESRD and he has dialysis on Mondays,Wednesdays, and Fridays. His last dialysis was 2 days ago on Saturday. He notes that he last urinated 10 years ago. He states that he has some chills.Denies having fever, nausea, vomiting, and abdominal pain. Time Seen by Provider: 06/18/18 08:21 Chief Complaint (Nursing): Male Genitourinary History Per: Patient, Striper ([employer]ot[employer] # [id number]) History/Exam Limitations: no limitations Onset/Duration Of Symptoms: Days Current Symptoms Are (Timing): Still Present Severity: Moderate Past Medical History Reviewed: Historical Data, Nursing Documentation, Vital Signs Vital Signs: Last Vital Signs Temp 98.4 F 06/18/18 08:09 Pulse 61 06/18/18 08:09 Resp 16 06/18/18 08:09 BP 144/77 06/18/18 08:09 Pulse Ox 100 06/18/18 08:09 Primary Care Provider: Non [facility] Provider, - Medical History PMH: HTN, End Stage Renal Disease (DIALYSIS 3 X WEEK, MWF), Chronic Kidney Disease - [facility] Procedures (03/18/18) BYPASS RIGHT BRACHIAL ARTERY TO UP ARM VEIN, OPEN APPROACH (03/31/17) DILATION OF LEFT BRACHIAL ARTERY, PERCUTANEOUS APPROACH (03/31/17) EXCISION OF SIGMOID COLON, ENDO (02/19/15) EXTIRPATION OF MATTER FROM L BRACH ART, PERC APPROACH (03/31/17) FLUOROSCOPY OF DIALYSIS SHUNT/FISTULA USING L OSM CONTRAST (03/31/17) FLUOROSCOPY OF SUPERIOR VENA CAVA, GUIDANCE (03/18/18) HEMODIALYSIS (06/22/12) INSERTION OF INFUSION DEV INTO SUP VENA CAVA, PERC APPROACH (03/18/18) OCCLUSION OF UPPER ARTERY, OPEN APPROACH (03/18/18) PERFORMANCE OF URINARY FILTRATION, MULTIPLE (02/19/15) Family History: States: Unknown Family Hx - Social History Hx Tobacco Use: No Hx Alcohol Use: No Hx Substance Use: No - Immunization History Hx Tetanus Toxoid Vaccination: Yes Hx Influenza Vaccination: Yes Hx Pneumococcal Vaccination: Yes Review Of Systems Except As Marked, All Systems Reviewed And Found Negative. Constitutional: Positive for: Chills. Negative for: Fever Gastrointestinal: Negative for: Nausea, Vomiting, Abdominal Pain Genitourinary: Positive for: Dysuria, Hematuria Physical Exam - Physical Exam Appears: Non-toxic, No Acute Distress Skin: Normal Color, Warm, Dry Head: Atraumatic, Normacephalic Eye(s): bilateral: Normal Inspection Nose: Normal Oral Mucosa: Moist Neck: Supple Cardiovascular: Rhythm Regular, Murmur (systolic murmur) Respiratory: Normal Breath Sounds, No Rales, No Rhonchi, No Wheezing Gastrointestinal/Abdominal: Normal Exam, Soft, No Tenderness, No Guarding, No Rebound Back: No CVA Tenderness Extremity: Normal ROM, Other (fistula with positive thrill in RUE) Neurological/Psych: Oriented x3, Normal Speech ED Course And Treatment - Laboratory Results Result Diagrams: 06/18/18 09:30 06/18/18 09:30 ECG: Interpreted By Me, Viewed By Me ECG Rhythm: Sinus Rhythm ECG Interpretation: Normal Interpretation Of ECG: NSR with 1st degree AV Block and some peaked T waves Rate From EC O2 Sat by Pulse Oximetry: 100 (RA) Pulse Ox Interpretation: Normal - CT Scan/US CT-Abd & Pelv. Other Rad Studies (CT/US): Read By Radiologist, Radiology Report Reviewed CT/US Interpretation: IMPRESSION: Partially imaged cardiomegaly. Dense mitral annulus calcification and dense coronary artery calcifications. Small hiatal hernia/distal esophageal wall thickening. Heterogeneous hepatic parenchyma. Hepatomegaly. Focal hypodense region within the right hepatic lobe adjacent to the falciform ligament, possibly focal fatty infiltration. Splenomegaly. Left adrenal gland nodule measures less than 5 Hounsfield units consistent with an adenoma. Atrophic bilateral kidneys with evidence of numerous bilateral and peripheral renal cysts. Nonobstructing bilateral calcifications. Marked under distention of the urinary bladder precludes adequate evaluation. Urinary bladder wall appears markedly thickened. Recommend further evaluation with cystoscopy if indicated. Enlarged prostate gland. Recommend correlation with PSA. Rectal wall thickening. Correlate clinically for possibility of proctitis. Underlying neoplasm cannot be excluded. Recommend correlation with colonoscopy. Schmorl's nodes involving endplates of multiple vertebral bodies evident. There is decreased mineralization of the bones, most likely representing osteoporosis. Rarely, underlying metabolic bone disease or infiltrative lesions can also have this appearance. MRI may be considered for further evaluation if clinically indicated. Additional findings as above. Medical Decision Making Medical Decision Making: Plan: --Labs --UA --CT-Abd & Pelv. --Kayexalate Updates 11:30 Patient is not able to make urine. Case discussed with . states he saw patient in dialysis 2 days ago and he was complaining of hematuria at the time. He notes that he thought patient may have UTI so he started him on Levaquin.He will arrange for dialysis today and he agrees with plan for admission. Case discussed with . Patient will be admitted under the service of . Disposition - Disposition Disposition: HOSPITALIZED - Scribe Statement The provider has reviewed the documentation as recorded by the Scribe Alka Olson Provider Attestation: All medical record entries made by the Scribe were at my direction and personally dictated by me. I have reviewed the chart and agree that the record accurately reflects my personal performance of the history, physical exam, medical decision making, and the department course for this patient. I have also personally directed, reviewed, and agree with the discharge instructions and disposition.
[2018-06-18 09:39] LABS: BASO # 0.1 K/uL (0.0-0.2); BASO % 0.7 % (0.0-2.0); EOS # 0.1 K/uL (0.0-0.7); EOS % 1.9 % (0.0-4.0); HEMOGLOBIN 12.6 g/dL (12.0-18.0); LYMPH # 1.1 K/uL (1.0-4.3); LYMPH % 15.5 % (20.0-40.0); MEAN CELL VOLUME 96.1 fL (80.0-94.0); MEAN CORPUSCULAR HEMOGLOBIN 32.6 pg (27.0-31.0); MEAN CORPUSCULAR HGB CONC 33.9 g/dL (33.0-37.0); MEAN PLATELET VOLUME 9.4 fL (7.2-11.7); MONO # 0.7 K/uL (0.0-0.8); NEUT % 71.9 % (50.0-75.0); RBC 3.86 Mil/uL (4.40-5.90)
[2018-06-18 09:44] LABS: INR 1.2; PROTHROMBIN TIME 12.7 SECONDS (9.7-12.2)
[2018-06-18 10:14] LABS: ALB/GLOB RATIO 1.2 (1.0-2.1); ALBUMIN 4.2 g/dL (3.5-5.0); CALCIUM 9.9 mg/dl (8.6-10.4)
[2018-06-18] MEDS ORDERED: Albuterol 0.083% Inhal Sol (2.5 mg/3 mL) UD INH STA (11:06)
[2018-06-18] MEDS ORDERED: Albuterol 0.042% Inhal Sol (1.25 mg/3 mL) UD ONE (12:10)
[2018-06-18] MEDS ORDERED: Albuterol 0.083% Inhal Sol (2.5 mg/3 mL) UD ONE (12:13)
--- NOTE | 2018-06-18 12:28 | CT ---
PROCEDURE: CT Abdomen and Pelvis without Oral or IV contrast. HISTORY: hematuria COMPARISON: None available TECHNIQUE: Contiguous axial images of the abdomen and pelvis. No oral or IV contrast administered. Coronal and Sagittal reformats generated and reviewed. Radiation dose: Total exam DLP = 315.24 mGy-cm. This CT exam was performed using one or more of the following dose reduction techniques: Automated exposure control, adjustment of the mA and/or kV according to patient size, and/or use of iterative reconstruction technique. FINDINGS: There is limited evaluation of the solid organs without the administration of IV contrast. LOWER THORAX: No visible consolidation, pleural effusion, or pneumothorax. Partially imaged cardiomegaly. Dense mitral annulus calcification. Dense coronary artery calcifications. Small hiatal hernia/distal esophageal wall thickening. LIVER: Heterogeneous hepatic parenchyma. Hepatomegaly. Focal hypodense region within the right hepatic lobe adjacent to the falciform ligament possibly focal fatty infiltration. GALLBLADDER AND BILE DUCTS: Contracted state limits evaluation, otherwise unremarkable. PANCREAS: Unremarkable unenhanced appearance. SPLEEN: Splenomegaly. ADRENALS: 10 mm hypodense nodule involving the left adrenal gland measures less than 5 Hounsfield units compatible with an adenoma. The unenhanced right adrenal gland appears unremarkable. KIDNEYS AND URETERS: Atrophic bilateral kidneys. Evidence of numerous bilateral and peripheral renal cysts. No hydronephrosis or obstructing renal calculus. Nonobstructing bilateral calcifications. BLADDER: Marked under distention of the urinary bladder precludes adequate evaluation. The urinary bladder wall appears markedly thickened. REPRODUCTIVE: The prostate gland measures approximately 4.0 x 4.9 cm. APPENDIX: The appendix appears within normal limits of caliber. No secondary signs of acute appendicitis. BOWEL: The stomach is nondistended. Lack of oral contrast limits evaluation for bowel pathology. The bowel loops appear within normal limits of caliber without evidence of intestinal obstruction. Rectal wall thickening. PERITONEUM: No significant free fluid. No definite free air. LYMPH NODES: No bulky lymphadenopathy identified. VASCULATURE: Right common iliac artery stent. Dense atherosclerotic calcifications of the aorta and branches. No aortic aneurysm. BONES: Schmorl's nodes involving endplates of multiple vertebral bodies evident. There is decreased mineralization of the bones, most likely representing osteoporosis. Rarely, underlying metabolic bone disease or infiltrative lesions can also have this appearance. MRI may be considered for further evaluation if clinically indicated. OTHER FINDINGS: Metallic clips noted within the right pelvis. IMPRESSION: Partially imaged cardiomegaly. Dense mitral annulus calcification and dense coronary artery calcifications. Small hiatal hernia/distal esophageal wall thickening. Heterogeneous hepatic parenchyma. Hepatomegaly. Focal hypodense region within the right hepatic lobe adjacent to the falciform ligament, possibly focal fatty infiltration. Splenomegaly. Left adrenal gland nodule measures less than 5 Hounsfield units consistent with an adenoma. Atrophic bilateral kidneys with evidence of numerous bilateral and peripheral renal cysts. Nonobstructing bilateral calcifications. Marked under distention of the urinary bladder precludes adequate evaluation. Urinary bladder wall appears markedly thickened. Recommend further evaluation with cystoscopy if indicated. Enlarged prostate gland. Recommend correlation with PSA. Rectal wall thickening. Correlate clinically for possibility of proctitis. Underlying neoplasm cannot be excluded. Recommend correlation with colonoscopy. Schmorl's nodes involving endplates of multiple vertebral bodies evident. There is decreased mineralization of the bones, most likely representing osteoporosis. Rarely, underlying metabolic bone disease or infiltrative lesions can also have this appearance. MRI may be considered for further evaluation if clinically indicated. Additional findings as above.
--- NOTE | 2018-06-18 13:58 | CP.PCM.HP ---
<Meng Spears - Last Filed: 06/18/18 14:28> History of Present Illness - History of Present Illness History of Present Illness: PGY-1 [address] and [address] Roberts Patient is a 53 year old male with PMHx ESRD on HD MWF, HTN presents with chief complaint of hematuria. Patient states he noticed a small amount of blood with urination yesterday, associated with dysuria. Patient states having gross hematuria, rather than pink frothy urine. However patient states he rarely makes urine. Patient states has not made significant amount of urine in 10 years due to renal failure. Patient has history of kidney transplant 17 years ago, but no longer takes transplant medications and is back on dialysis. Patient denies fever or chills. Denies history of CA, denies smoking history. PMHx: ESRD, HTN, pulmonary edema, pericardial effusion, Subclavian Steal syndrome NKDA PSHx: renal transplant, knee surgery, R lung cystectomy, dialysis access, pericardial window, colonoscopy SHx: denies tobacco use, social EtOH use, denies drug use FHx: noncontributory Home Rx: Renvela 800mg PO TIDCC Sensipar 90mg PO QPM Famotidine 40mg PO qd Clonidine 0.2mg PO BID Present on Admission - Present on Admission Any Indicators Present on Admission: No Review of Systems - Constitutional Constitutional: absent: Chills, Fever, Weight Loss - EENT Eyes: absent: Blurred Vision, Change in Vision - Cardiovascular Cardiovascular: absent: Chest Pain, Dyspnea - Respiratory Respiratory: absent: Cough, Dyspnea - Gastrointestinal Gastrointestinal: absent: Abdominal Pain, Nausea, Vomiting - Genitourinary Genitourinary: Difficulty Urinating, Dysuria, Hematuria, Hx /Renal Surgery (Kidney transplant only). absent: Flank Pain, Urinary Frequency, Urinary Hesitance, Hx Renal/Bladder Calculi - Musculoskeletal Musculoskeletal: absent: Back Pain, Myalgias - Neurological Neurological: absent: Dizziness, Numbness - Psychiatric Psychiatric: absent: Anxiety, Depression Past Patient History - Infectious Disease Hx of Infectious Diseases: None - Past Medical History & Family History Past Medical History?: Yes - Past Social History Smoking Status: Never Smoked - CARDIAC Hx Hypertension: Yes - PULMONARY Hx Respiratory Disorders: Yes Hx Pulmonary Edema: Yes - NEUROLOGICAL Hx Neurological Disorder: No - HEENT Hx HEENT Problems: No - RENAL Hx Chronic Kidney Disease: Yes - ENDOCRINE/METABOLIC Hx Endocrine Disorders: No - HEMATOLOGICAL/ONCOLOGICAL Hx Blood Disorders: No - INTEGUMENTARY Hx Dermatological Problems: No - MUSCULOSKELETAL/RHEUMATOLOGICAL Hx Musculoskeletal Disorders: No Hx Falls: No - GASTROINTESTINAL Hx Gastrointestinal Disorders: No - GENITOURINARY/GYNECOLOGICAL Hx Genitourinary Disorders: No - PSYCHIATRIC Hx Substance Use: No - SURGICAL HISTORY Hx Surgeries: Yes Hx Kidney Transplant: Yes (18 years ago as per pt) Hx Orthopedic Surgery: Yes (Knee) Hx Vascular Access Device: Yes (2013. left av fistula nonfunctioning/ RIGHT ARM(12/10/17)) Other/Comment: lung surgery, AV fistula 2000, Knee surgery. heart surgery- too much fluid around heart - ANESTHESIA Hx Anesthesia: Yes Hx Anesthesia Reactions: No Hx Malignant Hyperthermia: No Meds Allergies/Adverse Reactions: Allergies Allergy/AdvReac Type Severity Reaction Status Date / Time No Known Allergies Allergy Verified 06/18/18 08:09 Physical Exam - Constitutional Appears: Non-toxic, No Acute Distress - Head Exam Head Exam: ATRAUMATIC, NORMOCEPHALIC - Eye Exam Eye Exam: EOMI, Normal appearance - ENT Exam ENT Exam: Mucous Membranes Moist - Respiratory Exam Respiratory Exam: Clear to Auscultation Bilateral, NORMAL BREATHING PATTERN. absent: Rhonchi, Wheezes - Cardiovascular Exam Cardiovascular Exam: REGULAR RHYTHM, +S1, +S2 - GI/Abdominal Exam GI & Abdominal Exam: Normal Bowel Sounds, Soft. absent: Tenderness - Exam Exam: absent: Circumcision, Scrotal Swelling, Testicular Tenderness, U retheral Discharge, Bladder Distension External exam: absent: Lesions - Extremities Exam Extremities exam: Positive for: normal inspection. Negative for: pedal edema, tenderness - Neurological Exam Neurological exam: Alert, CN II-XII Intact, Oriented x3 - Psychiatric Exam Psychiatric exam: Normal Affect, Normal Mood - Skin Skin Exam: Dry, Intact Results - Vital Signs Recent Vital Signs: Last Vital Signs Temp 98.4 F 06/18/18 08:09 Pulse 66 06/18/18 13:13 Resp 20 06/18/18 13:13 BP 151/55 H 06/18/18 13:13 Pulse Ox 98 06/18/18 13:13 - Labs Result Diagrams: 06/18/18 09:30 06/18/18 09:30 Labs: Laboratory Results - last 24 hr 06/18/18 06/18/18 06/18/18 09:30 09:30 09:30 WBC 7.0 RBC 3.86 L Hgb 12.6 Hct 37.1 MCV 96.1 H MCH 32.6 H MCHC 33.9 RDW 15.0 H Plt Count 165 MPV 9.4 Neut % (Auto) 71.9 Lymph % (Auto) 15.5 L Treasure % (Auto) 10.0 Eos % (Auto) 1.9 Baso % (Auto) 0.7 Neut # (Auto) 5.0 Lymph # (Auto) 1.1 Treasure # (Auto) 0.7 Eos # (Auto) 0.1 Baso # (Auto) 0.1 PT 12.7 H INR 1.2 APTT 38.0 H Sodium 139 Potassium 5.8 H Chloride 93 L Carbon Dioxide 30 Anion Gap 22 H BUN 63 H Creatinine 10.3 H* Est GFR ( Amer) 6 Est GFR (Non-Af Amer) 5 Random Glucose 77 D Calcium 9.9 Total Bilirubin 0.8 AST 34 ALT 9 L D Alkaline Phosphatase 285 H D Total Protein 7.7 Albumin 4.2 Globulin 3.5 Albumin/Globulin Ratio 1.2 Assessment & Plan - Assessment and Plan (Free Text) Assessment: 53 year old male with PMHx ESRD on HD presents with small gross hematuria with associated dysuria Gross Hematuria -Urology consulted, Dr. Ruslan Arenas -UA, Urine cx, f/u --staight cath once for collection -PSA, f/u Imaging: CT abdomen/Pelvis Partially imaged cardiomegaly. Dense mitral annulus calcification and dense coronary artery calcifications. Small hiatal hernia/distal esophageal wall thickening. Heterogeneous hepatic parenchyma. Hepatomegaly. Focal hypodense region within the right hepatic lobe adjacent to the falciform ligament, possibly focal fatty infiltration. Splenomegaly. Left adrenal gland nodule measures less than 5 Hounsfield units consistent with an adenoma. Atrophic bilateral kidneys with evidence of numerous bilateral and peripheral renal cysts. Nonobstructing bilateral calcifications. Marked under distention of the urinary bladder precludes adequate evaluation. Urinary bladder wall appears markedly thickened. Recommend further evaluation with cystoscopy if indicated. Enlarged prostate gland. Recommend correlation with PSA. Rectal wall thickening. Correlate clinically for possibility of proctitis. Underlying neoplasm cannot be excluded. Recommend correlation with colonoscopy. Schmorl's nodes involving endplates of multiple vertebral bodies evident. There is decreased mineralization of the bones, most likely representing osteoporosis. Rarely, underlying metabolic bone disease or infiltrative lesions can also have this appearance. MRI may be considered for further evaluation if clinically indicated. ESRD -Nephro consulted, Dr. Keene -HD MWF Meds -Renvela 800mg PO TIDCC -Sensipar 90mg PO QPM -Famotidine 40mg PO qd -Clonidine 0.2mg PO BID GERD -Pepcid 20 mg PO daily PPx -Heparin 5000 U SC Q12 -Pepcid 20 mg PO daily (home med) Assessment and plan d/w Dr. Armando Spears, PGY-1 <Alfredo Roberts - Last Filed: 06/19/18 18:40> Results - Vital Signs Recent Vital Signs: Last Vital Signs Temp 97.9 F 06/19/18 16:39 Pulse 57 L 06/19/18 16:39 Resp 20 06/19/18 16:39 BP 120/63 06/19/18 16:39 Pulse Ox 97 06/19/18 16:39 - Labs Result Diagrams: 06/19/18 07:26 06/19/18 07:26 Labs: Laboratory Results - last 24 hr 06/19/18 06/19/18 07:26 07:26 WBC 5.8 RBC 3.75 L Hgb 12.2 Hct 35.7 MCV 95.4 H MCH 32.6 H MCHC 34.2 RDW 15.3 H Plt Count 183 MPV 9.2 Neut % (Auto) 69.1 Lymph % (Auto) 17.0 L Treasure % (Auto) 10.0 Eos % (Auto) 3.4 Baso % (Auto) 0.5 Neut # (Auto) 4.0 Lymph # (Auto) 1.0 Treasure # (Auto) 0.6 Eos # (Auto) 0.2 Baso # (Auto) 0.0 Sodium 141 Potassium 5.3 H Chloride 95 L Carbon Dioxide 30 Anion Gap 22 H BUN 44 H Creatinine 8.8 H* Est GFR ( Amer) 8 Est GFR (Non-Af Amer) 6 Random Glucose 80 Calcium 9.4 Phosphorus 4.6 H Magnesium 2.2 Total Bilirubin 0.6 AST 24 ALT 15 L D Alkaline Phosphatase 291 H Total Protein 7.6 Albumin 4.1 Globulin 3.5 Albumin/Globulin Ratio 1.2 Attending/Attestation - Attestation I have personally seen and examined this patient.: Yes I have fully participated in the care of the patient.: Yes I have reviewed all pertinent clinical information: Yes Notes (Text): Seen and examined by me C/o painless gross hematuria. r/o bladder pathology-urology consult monitor cbc ESRD on HD
--- NOTE | 2018-06-19 07:21 | CP.PCM.PN ---
<Mark Vargas - Last Filed: 06/19/18 15:08> Subjective - Date & Time of Evaluation Date of Evaluation: 06/19/18 Time of Evaluation: 07:21 - Subjective Subjective: PGY-1 Medicine progress note for Dr. Roberts Patient seen and examined at bedside. No acute events overnight. Patient states he has not seen blood in his urine. He denies headaches, dizziness, shortness of breath, chest pain, abdominal pain, nausea, vomiting, diarrhea, or any other complaints. Objective - Vital Signs/Intake and Output Vital Signs (last 24 hours): Temp Pulse Resp BP Pulse Ox 98.2 F 65 20 116/61 97 06/18/18 23:51 06/18/18 23:51 06/18/18 23:51 06/18/18 23:51 06/18/18 23:51 Intake and Output: 06/19/18 06/19/18 06:59 18:59 Intake Total 390 Balance 390 - Medications Medications: Current Medications Cinacalcet (Sensipar) 90 mg PO QPM [facility] Last Admin: 06/18/18 22:08 Dose: 90 mg Clonidine HCl (Catapres) 0.2 mg PO BID [facility] Last Admin: 06/18/18 22:08 Dose: 0.2 mg Famotidine (Pepcid) 20 mg PO DAILY [facility] Heparin Sodium (Porcine) (Heparin) 5,000 units SC Q12 [facility] Last Admin: 06/18/18 22:02 Dose: Not Given Sevelamer Carbonate (Renvela) 800 mg PO TIDCC [facility] Last Admin: 06/18/18 22:08 Dose: 800 mg - Labs Labs: 06/18/18 09:30 06/18/18 09:30 PT 12.7 SECONDS (9.7-12.2) H 06/18/18 09:30 INR 1.2 06/18/18 09:30 APTT 38.0 SECONDS (21-34) H 06/18/18 09:30 - Additional Findings Additional findings: - Constitutional Appears: Non-toxic, No Acute Distress - Head Exam Head Exam: ATRAUMATIC, NORMOCEPHALIC - Eye Exam Eye Exam: EOMI, Normal appearance - ENT Exam ENT Exam: Mucous Membranes Moist - Respiratory Exam Respiratory Exam: Clear to Auscultation Bilateral, NORMAL BREATHING PATTERN. absent: Rhonchi, Wheezes - Cardiovascular Exam Cardiovascular Exam: REGULAR RHYTHM, +S1, +S2 - GI/Abdominal Exam GI & Abdominal Exam: Normal Bowel Sounds, Soft. absent: Tenderness - Exam Exam: absent: Circumcision, Scrotal Swelling, Testicular Tenderness, Uretheral Discharge, Bladder Distension External exam: absent: Lesions - Extremities Exam Extremities exam: Positive for: normal inspection. Negative for: pedal edema, tenderness - Neurological Exam Neurological exam: Alert, CN II-XII Intact, Oriented x3 - Psychiatric Exam Psychiatric exam: Normal Affect, Normal Mood - Skin Skin Exam: Dry, Intact Assessment and Plan - Assessment and Plan (Free Text) Assessment: Patient is a 53 year old male with PMH of ESRD on HD, admitted for gross hematuria with associated dysuria. Plan: Gross Hematuria - CT abdomen/Pelvis: Atrophic bilateral kidneys with evidence of numerous bilateral and peripheral renal cysts. Urinary bladder wall appears markedly thickened. Rectal wall thickening. Correlate clinically for possibility of proctitis. Underlying neoplasm cannot be excluded. Recommend correlation with colonoscopy. - see full report - Urology consulted, Dr. Ruslan Arenas - Follow up UA and Urine Cx - PSA: 4.36 ESRD on HD (MWF) - Nephrology consulted, Dr. Keene - Renvela 800mg PO TIDCC - Sensipar 90mg PO QPM Hypertension - Clonidine 0.2mg PO BID - Continue to monitor GERD -Pepcid 20 mg PO daily PPx - DVT: Heparin 5000u SC Q12, SCD's - GI: Pepcid 20 mg PO daily Patient seen and case discussed with attending, Dr. Roberts. Mark Vargas, PGY-1 <Alfredo Roberts - Last Filed: 06/19/18 18:11> Objective - Vital Signs/Intake and Output Vital Signs (last 24 hours): Temp Pulse Resp BP Pulse Ox 97.9 F 57 L 20 120/63 97 06/19/18 16:39 06/19/18 16:39 06/19/18 16:39 06/19/18 16:39 06/19/18 16:39 Intake and Output: 06/19/18 06/19/18 06:59 18:59 Intake Total 390 400 Balance 390 400 - Medications Medications: Current Medications Cinacalcet (Sensipar) 90 mg PO QPM [facility] Last Admin: 06/18/18 22:08 Dose: 90 mg Clonidine HCl (Catapres) 0.2 mg PO BID [facility] Last Admin: 06/19/18 09:55 Dose: 0.2 mg Famotidine (Pepcid) 20 mg PO DAILY [facility] Last Admin: 06/19/18 09:55 Dose: 20 mg Heparin Sodium (Porcine) (Heparin) 5,000 units SC Q12 [facility] Last Admin: 06/18/18 22:02 Dose: Not Given Sevelamer Carbonate (Renvela) 800 mg PO TIDCC [facility] Last Admin: 06/19/18 12:22 Dose: 800 mg - Labs Labs: 06/19/18 07:26 06/19/18 07:26 PT 12.7 SECONDS (9.7-12.2) H 06/18/18 09:30 INR 1.2 06/18/18 09:30 APTT 38.0 SECONDS (21-34) H 06/18/18 09:30 Attending/Attestation - Attestation I have personally seen and examined this patient.: Yes I have fully participated in the care of the patient.: Yes I have reviewed all pertinent clinical information, including history, physical exam and plan: Yes Notes (Text): s/p painless hematuria,r/o bladder pathology.CT abd pelvis -no stones,no tumor we will follow urologist recommendation ESRD on HD
[2018-06-19 07:32] LABS: BASO % 0.5 % (0.0-2.0); EOS # 0.2 K/uL (0.0-0.7); EOS % 3.4 % (0.0-4.0); HEMOGLOBIN 12.2 g/dL (12.0-18.0); MEAN CELL VOLUME 95.4 fL (80.0-94.0); MEAN CORPUSCULAR HEMOGLOBIN 32.6 pg (27.0-31.0); MEAN CORPUSCULAR HGB CONC 34.2 g/dL (33.0-37.0); MEAN PLATELET VOLUME 9.2 fL (7.2-11.7); MONO # 0.6 K/uL (0.0-0.8); NEUT % 69.1 % (50.0-75.0); RBC 3.75 Mil/uL (4.40-5.90); RED CELL DISTRIBUTION WIDTH 15.3 % (11.5-14.5); WHITE BLOOD COUNT 5.8 K/uL (4.8-10.8)
[2018-06-19 08:15] LABS: ALB/GLOB RATIO 1.2 (1.0-2.1); ALBUMIN 4.1 g/dL (3.5-5.0); CALCIUM 9.4 mg/dl (8.6-10.4)
[2018-06-20 06:58] LABS: BASO % 0.5 % (0.0-2.0); EOS # 0.3 K/uL (0.0-0.7); EOS % 5.8 % (0.0-4.0); HEMOGLOBIN 11.9 g/dL (12.0-18.0); LYMPH # 1.2 K/uL (1.0-4.3); LYMPH % 21.8 % (20.0-40.0); MEAN CELL VOLUME 95.4 fL (80.0-94.0); MEAN CORPUSCULAR HEMOGLOBIN 31.8 pg (27.0-31.0); MEAN CORPUSCULAR HGB CONC 33.3 g/dL (33.0-37.0); MEAN PLATELET VOLUME 9.1 fL (7.2-11.7); MONO # 0.5 K/uL (0.0-0.8); MONO % 9.7 % (0.0-10.0); NEUT # 3.5 K/uL (1.8-7.0); NEUT % 62.2 % (50.0-75.0); RBC 3.75 Mil/uL (4.40-5.90); RED CELL DISTRIBUTION WIDTH 14.8 % (11.5-14.5); WHITE BLOOD COUNT 5.6 K/uL (4.8-10.8)
--- NOTE | 2018-06-20 07:24 | CP.PCM.PN ---
Subjective - Date & Time of Evaluation Date of Evaluation: 06/20/18 Time of Evaluation: 07:23 - Subjective Subjective: PGY-1 Medicine progress note for Dr. Roberts Objective - Vital Signs/Intake and Output Vital Signs (last 24 hours): Temp Pulse Resp BP Pulse Ox 98 F 60 20 114/65 97 06/19/18 23:10 06/19/18 23:10 06/19/18 23:10 06/19/18 23:10 06/20/18 00:00 - Medications Medications: Current Medications Cinacalcet (Sensipar) 90 mg PO QPM [facility] Last Admin: 06/19/18 18:26 Dose: 90 mg Clonidine HCl (Catapres) 0.2 mg PO BID [facility] Last Admin: 06/19/18 18:26 Dose: 0.2 mg Famotidine (Pepcid) 20 mg PO DAILY [facility] Last Admin: 06/19/18 09:55 Dose: 20 mg Heparin Sodium (Porcine) (Heparin) 5,000 units SC Q12 [facility] Last Admin: 06/18/18 22:02 Dose: Not Given Sevelamer Carbonate (Renvela) 800 mg PO TIDCC [facility] Last Admin: 06/19/18 18:26 Dose: 800 mg - Labs Labs: 06/20/18 06:42 06/19/18 07:26 PT 12.7 SECONDS (9.7-12.2) H 06/18/18 09:30 INR 1.2 06/18/18 09:30 APTT 38.0 SECONDS (21-34) H 06/18/18 09:30 Assessment and Plan - Assessment and Plan (Free Text) Assessment: Patient is a 53 year old male with PMH of ESRD on HD, admitted for gross hematuria with associated dysuria. Awaiting urology recommendations. Plan: Gross Hematuria - CT abdomen/Pelvis: Atrophic bilateral kidneys with evidence of numerous bilateral and peripheral renal cysts. Urinary bladder wall appears markedly thickened. Rectal wall thickening. Correlate clinically for possibility of proctitis. Underlying neoplasm cannot be excluded. Recommend correlation with colonoscopy. - see full report - Urology consulted, Dr. Ruslan Arenas - Follow up UA and Urine Cx - PSA: 4.36 ESRD on HD (MWF) - Nephrology consulted, Dr. Keene - Renvela 800mg PO TIDCC - Sensipar 90mg PO QPM Hypertension - Clonidine 0.2mg PO BID - Continue to monitor GERD -Pepcid 20 mg PO daily PPx - DVT: Heparin 5000u SC Q12, SCD's - GI: Pepcid 20 mg PO daily Patient seen and case discussed with attending, Dr. Roberts. Mark Vargas, PGY-1
[2018-06-20 08:12] LABS: ALB/GLOB RATIO 1.2 (1.0-2.1); ALBUMIN 3.7 g/dL (3.5-5.0); CALCIUM 9.2 mg/dl (8.6-10.4)
[2018-06-20 09:39] VITALS: RESP 18
--- NOTE | 2018-06-20 11:40 | CP.PCM.DIS ---
<Mark Vargas - Last Filed: 06/20/18 11:47> Provider - Provider Date of Admission: 06/18/18 11:25 Attending physician: Alfredo Roberts MD Consults: 06/18/18 12:31 Nephrology Consult Stat Comment: I've already spoken to doctor Consulting Provider: Pasha Keene Consulting Physician: Pasha Keene Reason for Consult: hyperkalemia, ESRD requiring HD 06/18/18 14:38 Urology Consult Routine Comment: Consulting Provider: Ruslan Ferrer Consulting Physician: Ruslan Ferrer Reason for Consult: Hematuria Time Spent in preparation of Discharge (in minutes): 45 Diagnosis - Discharge Diagnosis (1) Hematuria Status: Acute (2) UTI (urinary tract infection) Status: Acute (3) HTN (hypertension) Status: Chronic (4) ESRD (end stage renal disease) on dialysis Status: Chronic Priority: Low Hospital Course - Lab Results Lab Results: Most Recent Lab Values WBC 5.6 K/uL (4.8-10.8) 06/20/18 06:42 RBC 3.75 Mil/uL (4.40-5.90) L 06/20/18 06:42 Hgb 11.9 g/dL (12.0-18.0) L 06/20/18 06:42 Hct 35.7 % (35.0-51.0) 06/20/18 06:42 MCV 95.4 fL (80.0-94.0) H 06/20/18 06:42 MCH 31.8 pg (27.0-31.0) H 06/20/18 06:42 MCHC 33.3 g/dL (33.0-37.0) 06/20/18 06:42 RDW 14.8 % (11.5-14.5) H 06/20/18 06:42 Plt Count 168 K/uL (130-400) 06/20/18 06:42 MPV 9.1 fL (7.2-11.7) 06/20/18 06:42 Neut % (Auto) 62.2 % (50.0-75.0) 06/20/18 06:42 Lymph % (Auto) 21.8 % (20.0-40.0) 06/20/18 06:42 [place] % (Auto) 9.7 % (0.0-10.0) 06/20/18 06:42 Eos % (Auto) 5.8 % (0.0-4.0) H 06/20/18 06:42 Baso % (Auto) 0.5 % (0.0-2.0) 06/20/18 06:42 Neut # (Auto) 3.5 K/uL (1.8-7.0) 06/20/18 06:42 Lymph # (Auto) 1.2 K/uL (1.0-4.3) 06/20/18 06:42 [place] # (Auto) 0.5 K/uL (0.0-0.8) 06/20/18 06:42 Eos # (Auto) 0.3 K/uL (0.0-0.7) 06/20/18 06:42 Baso # (Auto) 0.0 K/uL (0.0-0.2) 06/20/18 06:42 PT 12.7 SECONDS (9.7-12.2) H 06/18/18 09:30 INR 1.2 06/18/18 09:30 APTT 38.0 SECONDS (21-34) H 06/18/18 09:30 Sodium 140 mmol/L (132-148) 06/20/18 06:42 Potassium 4.6 mmol/L (3.6-5.2) 06/20/18 06:42 Chloride 92 mmol/L (98-107) L 06/20/18 06:42 Carbon Dioxide 31 mmol/L (22-30) H 06/20/18 06:42 Anion Gap 22 (10-20) H 06/20/18 06:42 BUN 66 mg/dL (9-20) H 06/20/18 06:42 Creatinine 10.8 mg/dL (0.8-1.5) H* D 06/20/18 06:42 Est GFR ( Amer) 6 06/20/18 06:42 Est GFR (Non-Af Amer) 5 06/20/18 06:42 Random Glucose 80 mg/dL (75-110) 06/20/18 06:42 Calcium 9.2 mg/dl (8.6-10.4) 06/20/18 06:42 Phosphorus 5.3 mg/dL (2.5-4.5) H 06/20/18 06:42 Magnesium 2.2 mg/dL (1.6-2.3) 06/20/18 06:42 Total Bilirubin 0.5 mg/dL (0.2-1.3) 06/20/18 06:42 AST 25 U/L (17-59) 06/20/18 06:42 ALT 16 U/L (21-72) L 06/20/18 06:42 Alkaline Phosphatase 265 U/L (38-126) H 06/20/18 06:42 Total Protein 6.8 g/dL (6.3-8.3) 06/20/18 06:42 Albumin 3.7 g/dL (3.5-5.0) 06/20/18 06:42 Globulin 3.1 gm/dL (2.2-3.9) 06/20/18 06:42 Albumin/Globulin Ratio 1.2 (1.0-2.1) 06/20/18 06:42 Prostate Specific Ag 4.36 ng/mL (0.00-4.0) H 06/18/18 09:30 - Hospital Course Hospital Course: Patient is a 53 year old male with PMHx ESRD on HD MWF, HTN presents with chief complaint of hematuria. Patient states he noticed a small amount of blood with urination yesterday, associated with dysuria. Patient states having gross hematuria, rather than pink frothy urine. However patient states he rarely makes urine. Patient states has not made significant amount of urine in 10 years due to renal failure. During his hospital stay, CT abdomen/Pelvis showed atrophic bilateral kidneys with evidence of numerous bilateral and peripheral renal cysts. Urinary bladder wall appears markedly thickened. Rectal wall thickening. Correlate clinically for possibility of proctitis. Underlying neoplasm cannot be excluded. Recommend correlation with colonoscopy. Urology (Dr. Ruslan Arenas) was consulted and recommended patient to be treated for antibiotics for a UTI. Cystoscopy not indicated at this time. Patient had his scheduled hemodialysis without issues during his hospitalization. Upon discharge, patient was instructed to take Ciprofloxacin for 5 days. Instructed patient to follow up at the clinic. Patient follow up with a urologist at Dr. Ferrer's office or [facility] in [place] where they have a Urology clinic. Patient is medically stable for discharge. Discharge Exam - Additional Findings Additional findings: - Constitutional Appears: Non-toxic, No Acute Distress - Head Exam Head Exam: ATRAUMATIC, NORMOCEPHALIC - Eye Exam Eye Exam: EOMI, Normal appearance - ENT Exam ENT Exam: Mucous Membranes Moist - Respiratory Exam Respiratory Exam: Clear to Auscultation Bilateral, NORMAL BREATHING PATTERN. absent: Rhonchi, Wheezes - Cardiovascular Exam Cardiovascular Exam: REGULAR RHYTHM, +S1, +S2 - GI/Abdominal Exam GI & Abdominal Exam: Normal Bowel Sounds, Soft. absent: Tenderness - Exam Exam: absent: Circumcision, Scrotal Swelling, Testicular Tenderness, Uretheral Discharge, Bladder Distension External exam: absent: Lesions - Extremities Exam Extremities exam: Positive for: normal inspection. Negative for: pedal edema, tenderness - Neurological Exam Neurological exam: Alert, CN II-XII Intact, Oriented x3 - Psychiatric Exam Psychiatric exam: Normal Affect, Normal Mood - Skin Skin Exam: Dry, Intact Discharge Plan - Discharge Medications Prescriptions: Ciprofloxacin [Cipro] 500 mg PO HS #5 tab - Follow Up Plan Condition: GOOD Disposition: HOME/ ROUTINE Instructions: Blood in the Urine (Hematuria) in Adults, Urinalysis, Urine Culture Additional Instructions: - [place] knight administrado antibiticos para la infeccin del tracto urinario. [place] Ciprofloxacina 500 mg diariamente a la hora de acostarse por 5 nichole ms. - Reanude todos los medicamentos caseros segn lo prescrito por isaac mdico. - Manoj un seguimiento con isaac mdico dentro de la primera semana despus del maco. - [place] knight dado isaac taza para recoger la orina. Por favor, deje la muestra en la [facility] o en isaac centro de dilisis. Necesita un anlisis de orina y un cultivo de orina. - Puede hacer un seguimiento con un urlogo en la oficina del Dr. Ferrer o en el [facility], donde tienen isaac clnica de urologa. - Regrese a la nikhil de emergencias por empeoramiento o sntomas nuevos. - You have been given antibiotics for your urinary tract infection. Take Ciprofloxacin 500mg daily at bedtime for 5 more days. - Resume all home medications as prescribed by your doctor. - Follow up with your doctor within 1 week of discharge. - You have been given a cup to collect urine. Please drop off sample at [facility] or at your dialysis centre. You need a urinalysis and urine culture. - You may follow up with a urologist at Dr. Ferrer's office or [facility] where they have a Urology clinic. - Return to the emergency room for worsening or newly concerning symptoms. Referrals: [facility] at [facility] [Outside] Ruslan Ferrer MD [Staff Provider] - <Alfredo Roberts - Last Filed: 06/20/18 14:34> Provider - Provider Date of Admission: 06/18/18 11:25 Attending physician: Alfredo Roberts MD Consults: 06/18/18 12:31 Nephrology Consult Stat Comment: I've already spoken to doctor Consulting Provider: Pasha Keene Consulting Physician: Pasha Keene Reason for Consult: hyperkalemia, ESRD requiring HD 06/18/18 14:38 Urology Consult Routine Comment: Consulting Provider: Ruslan Ferrer Consulting Physician: Ruslan Ferrer Reason for Consult: Hematuria Hospital Course - Lab Results Lab Results: Most Recent Lab Values WBC 5.6 K/uL (4.8-10.8) 06/20/18 06:42 RBC 3.75 Mil/uL (4.40-5.90) L 06/20/18 06:42 Hgb 11.9 g/dL (12.0-18.0) L 06/20/18 06:42 Hct 35.7 % (35.0-51.0) 06/20/18 06:42 MCV 95.4 fL (80.0-94.0) H 06/20/18 06:42 MCH 31.8 pg (27.0-31.0) H 06/20/18 06:42 MCHC 33.3 g/dL (33.0-37.0) 06/20/18 06:42 RDW 14.8 % (11.5-14.5) H 06/20/18 06:42 Plt Count 168 K/uL (130-400) 06/20/18 06:42 MPV 9.1 fL (7.2-11.7) 06/20/18 06:42 Neut % (Auto) 62.2 % (50.0-75.0) 06/20/18 06:42 Lymph % (Auto) 21.8 % (20.0-40.0) 06/20/18 06:42 [place] % (Auto) 9.7 % (0.0-10.0) 06/20/18 06:42 Eos % (Auto) 5.8 % (0.0-4.0) H 06/20/18 06:42 Baso % (Auto) 0.5 % (0.0-2.0) 06/20/18 06:42 Neut # (Auto) 3.5 K/uL (1.8-7.0) 06/20/18 06:42 Lymph # (Auto) 1.2 K/uL (1.0-4.3) 06/20/18 06:42 [place] # (Auto) 0.5 K/uL (0.0-0.8) 06/20/18 06:42 Eos # (Auto) 0.3 K/uL (0.0-0.7) 06/20/18 06:42 Baso # (Auto) 0.0 K/uL (0.0-0.2) 06/20/18 06:42 PT 12.7 SECONDS (9.7-12.2) H 06/18/18 09:30 INR 1.2 06/18/18 09:30 APTT 38.0 SECONDS (21-34) H 06/18/18 09:30 Sodium 140 mmol/L (132-148) 06/20/18 06:42 Potassium 4.6 mmol/L (3.6-5.2) 06/20/18 06:42 Chloride 92 mmol/L (98-107) L 06/20/18 06:42 Carbon Dioxide 31 mmol/L (22-30) H 06/20/18 06:42 Anion Gap 22 (10-20) H 06/20/18 06:42 BUN 66 mg/dL (9-20) H 06/20/18 06:42 Creatinine 10.8 mg/dL (0.8-1.5) H* D 06/20/18 06:42 Est GFR ( Amer) 6 06/20/18 06:42 Est GFR (Non-Af Amer) 5 06/20/18 06:42 Random Glucose 80 mg/dL (75-110) 06/20/18 06:42 Calcium 9.2 mg/dl (8.6-10.4) 06/20/18 06:42 Phosphorus 5.3 mg/dL (2.5-4.5) H 06/20/18 06:42 Magnesium 2.2 mg/dL (1.6-2.3) 06/20/18 06:42 Total Bilirubin 0.5 mg/dL (0.2-1.3) 06/20/18 06:42 AST 25 U/L (17-59) 06/20/18 06:42 ALT 16 U/L (21-72) L 06/20/18 06:42 Alkaline Phosphatase 265 U/L (38-126) H 06/20/18 06:42 Total Protein 6.8 g/dL (6.3-8.3) 06/20/18 06:42 Albumin 3.7 g/dL (3.5-5.0) 06/20/18 06:42 Globulin 3.1 gm/dL (2.2-3.9) 06/20/18 06:42 Albumin/Globulin Ratio 1.2 (1.0-2.1) 06/20/18 06:42 Prostate Specific Ag 4.36 ng/mL (0.00-4.0) H 06/18/18 09:30 Attending/Attestation - Attestation I have personally seen and examined this patient.: Yes I have fully participated in the care of the patient.: Yes I have reviewed all pertinent clinical information, including history, physical exam and plan: Yes Notes (Text): Seen by Dr Aldair Ferrer last night. He recommend to treat for possible UTI,no intervention at this time Patient is not passing urine for sample,Asked to give urine for testing and take cipro Patient was recommend to see a urologist as an out pt.
[2018-06-20 12:41] VITALS: O2SAT 98
[2018-06-20 12:47] VITALS: BP 101/48; PULSE 56; TEMP 97.8
--- NOTE | 2018-06-21 05:57 | CP.PCM.CON ---
History of Present Illness - History of Present Illness History of Present Illness: REASONS FOR CONSULT : ESRD ON HD Deirdre W F PT WAS SEEN AND EXAMINED DURING THE COURSE OF HIS ADMISSION Patient is a 53 year old male with PMHx ESRD on HD MWF, HTN presents with chief complaint of hematuria. Patient states he noticed a small amount of blood with urination yesterday, associated with dysuria. Patient states having gross hematuria, rather than pink frothy urine. However patient states he rarely makes urine. Patient states has not made significant amount of urine in 10 years due to renal failure. Patient has history of kidney transplant 17 years ago, but no longer takes transplant medications and is back on dialysis. Patient denies fever or chills. Denies history of CA, denies smoking history. PMHx: ESRD, HTN, pulmonary edema, pericardial effusion, Subclavian Steal syndrome NKDA PSHx: renal transplant, knee surgery, R lung cystectomy, dialysis access, pericardial window, colonoscopy SHx: denies tobacco use, social EtOH use, denies drug use FHx: noncontributory Home Rx: Renvela 800mg PO TIDCC Sensipar 90mg PO QPM Famotidine 40mg PO qd Clonidine 0.2mg PO BID Past Patient History - Infectious Disease Hx of Infectious Diseases: None - Past Medical History & Family History Past Medical History?: Yes - Past Social History Smoking Status: Never Smoked - CARDIAC Hx Hypertension: Yes - PULMONARY Hx Respiratory Disorders: Yes Hx Pulmonary Edema: Yes - NEUROLOGICAL Hx Neurological Disorder: No - HEENT Hx HEENT Problems: No - RENAL Hx Chronic Kidney Disease: Yes - ENDOCRINE/METABOLIC Hx Endocrine Disorders: No - HEMATOLOGICAL/ONCOLOGICAL Hx Blood Disorders: No - INTEGUMENTARY Hx Dermatological Problems: No - MUSCULOSKELETAL/RHEUMATOLOGICAL Hx Musculoskeletal Disorders: No Hx Falls: No - GASTROINTESTINAL Hx Gastrointestinal Disorders: No - GENITOURINARY/GYNECOLOGICAL Hx Genitourinary Disorders: No - PSYCHIATRIC Hx Substance Use: No - SURGICAL HISTORY Hx Surgeries: Yes Hx Kidney Transplant: Yes (18 years ago as per pt) Hx Orthopedic Surgery: Yes (Knee) Hx Vascular Access Device: Yes (2012. left av fistula nonfunctioning/ RIGHT ARM(12/10/17)) Other/Comment: lung surgery, AV fistula 2000, Knee surgery. heart surgery- too much fluid around heart - ANESTHESIA Hx Anesthesia: Yes Hx Anesthesia Reactions: No Hx Malignant Hyperthermia: No Meds Home Medications: Home Medication List Medication Instructions Recorded Confirmed Type Ciprofloxacin [Cipro] 500 mg PO HS #5 tab 06/20/18 Rx Allergies/Adverse Reactions: Allergies Allergy/AdvReac Type Severity Reaction Status Date / Time No Known Allergies Allergy Verified 06/18/18 08:09 Results - Vital Signs Recent Vital Signs: Last Vital Signs Temp 97.8 F 06/20/18 12:25 Pulse 56 L 06/20/18 12:25 Resp 18 06/20/18 12:25 BP 101/48 L 06/20/18 12:25 Pulse Ox 98 06/20/18 12:25 - Labs Result Diagrams: 06/20/18 06:42 06/20/18 06:42 Labs: Laboratory Results - last 24 hr 06/20/18 06/20/18 06:42 06:42 WBC 5.6 RBC 3.75 L Hgb 11.9 L Hct 35.7 MCV 95.4 H MCH 31.8 H MCHC 33.3 RDW 14.8 H Plt Count 168 MPV 9.1 Neut % (Auto) 62.2 Lymph % (Auto) 21.8 [place] % (Auto) 9.7 Eos % (Auto) 5.8 H Baso % (Auto) 0.5 Neut # (Auto) 3.5 Lymph # (Auto) 1.2 [place] # (Auto) 0.5 Eos # (Auto) 0.3 Baso # (Auto) 0.0 Sodium 140 Potassium 4.6 Chloride 92 L Carbon Dioxide 31 H Anion Gap 22 H BUN 66 H Creatinine 10.8 H* D Est GFR ( Amer) 6 Est GFR (Non-Af Amer) 5 Random Glucose 80 Calcium 9.2 Phosphorus 5.3 H Magnesium 2.2 Total Bilirubin 0.5 AST 25 ALT 16 L Alkaline Phosphatase 265 H Total Protein 6.8 Albumin 3.7 Globulin 3.1 Albumin/Globulin Ratio 1.2 Assessment & Plan - Assessment and Plan (Free Text) Assessment: ESRD ON HD M W F .. WILL C/O AN IN PT HTN HEMATURIA P : PT RECIEVED HIS HD ON DAY OF ADMISION C/O CURRENT CARE C/O PRESENT MEDS - Date & Time Date: 06/19/18 Time: 15:00
--- NOTE | 2018-06-21 16:20 | CARD ---
APPROVED REPORT Date of service: 06/18/2018 EKG Measurement Heart [id number] <Conclusion> Normal sinus rhythm Left axis deviation Minimal voltage criteria for LVH, may be normal variant Possible Lateral infarct, age undetermined Abnormal ECG
--- NOTE | 2018-06-23 14:09 | CON ---
DATE: 06/19/2018 REASON FOR CONSULTATION: Hematuria. HISTORY OF PRESENT ILLNESS: This is a very pleasant gentleman, he has actually end-stage renal disease. He is in the hospital under the care of the hospitalist and Urology is consulted regarding hematuria. He is already a dialysis patient. Urology is consulted for further recommendations. See plans below. PAST MEDICAL AND SURGICAL HISTORY: As listed on the chart. History is through the patient via mechanical systems engineer and through the chart. MEDICATIONS: See the chart. ALLERGIES: PHYSICAL EXAMINATION: GENERAL: A well-nourished male. He is currently resting comfortably. VITAL SIGNS: Noted. DIAGNOSES: End-stage renal disease, renal failure, hematuria. ASSESSMENT AND PLAN: In summary, we discussed options with the patient. At some point, it would warrant further diagnostic upper tract imaging and also cystoscopy. We will most likely make further arrangements as an outpatient. I had given the patient my card with my phone number for him to call the office translate to him in [place]e, I have people in the office who speak Gabonese well and then we can make arrangements. No need for inpatient further diagnostic workup at this point from a urology standpoint. Thank you for the urology consult. Arik Ferrer MD
== END 2018-06-20 14:43 | disposition home or self-care (01) ==
LOC: C.ER 07:59 → C.9E 11:25 → C.3T 13:53
PROVIDERS: ADMIT Internal Medicine; ATTEND Internal Medicine
DX: R31.9 Hematuria, unspecified (principal); I12.0 Hypertensive chronic kidney disease with stage 5 chronic kidney disease or end stage renal disease; N18.6 End stage renal disease; I25.10 Atherosclerotic heart disease of native coronary artery without angina pectoris; E27.8 Other specified disorders of adrenal gland; K44.9 Diaphragmatic hernia without obstruction or gangrene; M81.0 Age-related osteoporosis without current pathological fracture; N39.0 Urinary tract infection, site not specified; K22.9 Disease of esophagus, unspecified; N28.1 Cyst of kidney, acquired; N40.0 Benign prostatic hyperplasia without lower urinary tract symptoms; Z94.0 Kidney transplant status; Z99.2 Dependence on renal dialysis
CPT/HCPCS: 36415; 74176; 80053; 83735; 84100; 84153; 85025; 85610; 85730; 93005; 99285; G0257; G0378